=== PATIENT | female | born 1950 | race Caucasian/White ===

== ENCOUNTER 2016-08-23 12:50 | Outpatient (CLI) ==
--- NOTE | 2016-08-25 08:44 | MAMMO ---
EXAM: Bilateral digital screening mammogram. History: Screening Comparison: Bilateral mammogram 08/11/2014 Findings: MLO and CC views of bilateral breasts demonstrate scattered fibroglandular breast parench yma. Stable benign bilateral breast calcifications. There are no dominant masses, no suspicious stephon rocalcifications and no architectural distortions Impression: Benign stable mammogram. Recommend followup routine screening mammography in 1 year. BIRADS 2
== END 2016-08-23 12:51 | disposition home or self-care (01) ==
LOC: RAD 12:50
PROVIDERS: ATTEND Internal Medicine
DX: Z12.31 Encounter for screening mammogram for malignant neoplasm of breast (principal)

== ENCOUNTER 2016-11-23 17:48 | Emergency (ER) ==
[2016-11-23 17:54] VITALS: BP 121/84; TEMP 97.6; BMI 33.0
[2016-11-23] MEDS ORDERED: LIDOCAINE HCL 1% SDV SUBCUT STA (19:18)
[2016-11-23] MEDS ORDERED: DECADRON 4 MG/ML SDV IM STA (19:18)
[2016-11-23] MEDS ORDERED: ROCEPHIN IM STA (19:18)
--- NOTE | 2016-11-23 19:26 | ED.PDOC ---
General ED Provider: Dr. GOLDY BECERRA Chief Complaint: Bite Stated Complaint: patient states she woke this morning and had a dark area on anterior of neck. patient states that as the day has gone on neck as swollen. patient states it hurts and itches. states she thinks something bit her. Time Seen by Physician: 19:23 Mode of Arrival: Walk-In Information Source: Patient Primary Care Provider: RACHEL BARRON Nursing and Triage Documentation Reviewed and Agree: Yes Review of Systems - Review Of Systems Constitutional: Reports: No symptoms Eyes: Reports: No symptoms Ears, Nose, Mouth, Throat: Reports: No symptoms Respiratory: Reports: No symptoms Cardiac: Reports: No symptoms GI: Reports: No symptoms : Reports: No symptoms Musculoskeletal: Reports: No symptoms Skin: Reports: Lesions, Rash Neurological: Reports: Anxiety Endocrine: Reports: No symptoms Hematologic/Lymphatic: Reports: No symptoms All Other Systems: Reviewed and Negative Past Medical History - Past Medical History Previously Healthy: Yes Endocrine: Reports: None Cardiovascular: Reports: CAD Respiratory: Reports: None Hematological: Reports: None Gastrointestinal: Reports: None Genitourinary: Reports: None Neuro/Psych: Reports: None Musculoskeletal: Reports: None Cancer: Reports: None Last Menstrual Period: n./a Other Pertinent Past Medical History: fibromyalgia/connective tissue disease/ibs - Surgical History General Surgical History: Reports: None - Family History Family History: Reports: None - Social History Smoking Status: Never smoker Hx Substance Use: No Alcohol Screening: None Physical Exam - Physical Exam Appearance: Ill-appearing Ill-appearing: Mild Eyes: ALEJANDRO, EOMI, Conjunctiva clear ENT: Ears normal, Nose normal, Oropharynx normal Neck: Supple (soft tissue swelling anterioly) Respiratory: Airway patent, Breath sounds clear, Breath sounds equal, Respirations nonlabored Cardiovascular: Tachycardia GI/: Soft, Nontender, No masses, Bowel sounds normal, No Organomegaly Musculoskeletal: Normal strength, ROM intact, No edema, No calf tenderness Skin: Warm Neurological: Sensation intact, Motor intact, Reflexes intact, Cranial nerves intact, Alert, Oriented Psychiatric: Anxious Critical Care Note - Critical Care Note Total Time (mins): 0 Course - Course Orders, Labs, Meds: Orders Category Date Time Status Ceftriaxone Sodium [Rocephin] MEDS 11/23/16 19:18 Discontinued 1 gm IM ONCE STA Dexamethasone 4 mg/ml Inj [Decadron 4 mg/ml Sdv] MEDS 11/23/16 19:18 Discontinued 8 mg IM ONCE STA Epinephrine Amp [Epinephrine 1:1,000 Amp] MEDS 11/23/16 19:34 Discontinued 1 mg .ROUTE .STK-MED ONE Epinephrine [Adrenalin 1:1000 Sdv] MEDS 11/23/16 19:30 Discontinued 0.4 mg IM ONCE STA Lidocaine HCl/Pf [Lidocaine HCl 1% Sdv] MEDS 11/23/16 19:18 Discontinued 5 ml SUBCUT ONCE STA Medications Discontinued Medications Generic Name Dose Route Start Last Admin Trade Name Nadeem PRN Reason Stop Dose Admin Ceftriaxone Sodium 1 gm 11/23/16 19:18 11/23/16 19:30 Rocephin IM 11/23/16 19:19 1 gm ONCE STA Administration Dexamethasone Sodium Phosphate 8 mg 11/23/16 19:18 11/23/16 19:29 Decadron 4 Mg/Ml Sdv IM 11/23/16 19:19 8 mg ONCE STA Administration Epinephrine HCl 0.4 mg 11/23/16 19:30 11/23/16 19:41 Adrenalin 1:1000 Sdv IM 11/23/16 19:31 0.4 mg ONCE STA Administration Lidocaine HCl 5 ml 11/23/16 19:18 11/23/16 19:30 Lidocaine Hcl 1% Sdv SUBCUT 11/23/16 19:19 5 ml ONCE STA Administration Vital Signs: Temp Pulse Resp BP Pulse Ox 11/23/16 17:49 97.6 F 113 H 20 121/84 94 L Departure - Departure Time of Disposition: 20:20 Disposition: HOME SELF-CARE Discharge Problem: Spider bite Qualifiers: Encounter type: initial encounter Injury intent: accidental or unintentional Qualified Code(s): T63.301A - Toxic effect of unspecified spider venom, accidental (unintentional), initial encounter Instructions: Brown Recluse Spider Bite (ED) Condition: Fair Pt referred to PMD for follow-up: Yes Additional Instructions: Take medications as prescribed Follow up with PCP in 2 days Return if worse. Prescriptions: Cephalexin [Keflex] 500 mg PO Q6HR #40 capsule Methylprednisolone [Medrol Dosepak] 4 mg PO DIRECTED #1 pkg Allergies/Adverse Reactions: Allergies No Known Allergies Allergy (Unverified 11/23/16 17:54) Home Medications: Ambulatory Orders Acetaminophen [Tylenol] 650 mg PO DIRECTED 11/23/16 Amitriptyline HCl 10 mg PO BEDTIME 11/23/16 Aspirin [Aspirin Chewable] 81 mg PO DAILYWM 11/23/16 Atorvastatin Calcium 20 mg PO DAILY 11/23/16 Bupropion HCl [Bupropion HCl Sr] 150 mg PO BEDTIME 11/23/16 Calcium Carbonate [Calcium] 500 mg PO BID 11/23/16 Celecoxib 200 mg PO BEDTIME 11/23/16 Cephalexin [Keflex] 500 mg PO Q6HR #40 capsule 11/23/16 Cholecalciferol (Vitamin D3) [Vitamin D] 400 unit PO DAILY 11/23/16 Docusate Sodium [Stool Softener] 100 mg PO DIRECTED 11/23/16 Duloxetine HCl 60 mg PO DAILY 11/23/16 Esomeprazole Magnesium [Nexium] 40 mg PO DAILY 11/23/16 Hydroxychloroquine Sulfate [Plaquenil] 200 mg PO BID 11/23/16 Levothyroxine Sodium [Synthroid] 100 mcg PO QDAC 11/23/16 Methylprednisolone [Medrol Dosepak] 4 mg PO DIRECTED #1 pkg 11/23/16 Nitroglycerin [Nitrostat] 0.4 mg SL Q5MIN X 3 DOSES PRN 11/23/16 [place]-3 Fatty Acids/Fish Oil [Fish Oil 1,000 mg Capsule] 1 each PO BID 11/23/16 Tramadol HCl 50 mg PO QID 11/23/16
[2016-11-23] MEDS ORDERED: ADRENALIN 1:1000 SDV IM STA (19:30)
[2016-11-23] MEDS ORDERED: EPINEPHRINE 1:1,000 AMP ONE (19:34)
[2016-11-24 18:48] VITALS: BMI 32.0
== END 2016-11-23 20:00 | disposition home or self-care (01) ==
LOC: ED 17:48
DX: T63.301A Toxic effect of unspecified spider venom, accidental (unintentional), initial encounter (principal)
CPT/HCPCS: 96372; 99282

== ENCOUNTER 2016-11-24 12:53 | Inpatient (IN) ==
--- NOTE | 2016-11-24 13:49 | CT ---
EXAM: CT soft tissue neck without contrast. HISTORY: Neck swelling near the thyroid cartilage. Possible insect bite or abscess. COMPARISON: None available. TECHNIQUE: Multiple axial images of the neck were obtained without contrast. Images were reformatte d in the sagittal and coronal plane. FINDINGS: No acute intracranial or intraorbital abnormality identified. There is a moderate-sized a ir-fluid level in the right maxillary sinus. The parotid and submandibular glands are unremarkable. There is diffuse subcutaneous edema in the chery bmandibular and submental regions extending inferiorly to the level of the thoracic inlet with some e yazmin surrounding the anterior strap muscles at the thoracic inlet. No subcutaneous air or circumscri bed fluid collection identified. No pharyngeal abnormality identified. Subglottic airway is normal in caliber. Thyroid gland is normal in size. Atherosclerotic calcifications are present. Retropharyngeal course of both carotid arteries noted at the level of the epiglottis. 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 The lung api dominique are clear. Degenerative changes present in the spine. IMPRESSION: 1. Moderate anterior neck cellulitis extending from the submandibular/submental region to the thorac ic inlet. No evidence for abscess. 2. Right maxillary sinusitis.
[2016-11-24] MEDS ORDERED: VANCOMYCIN 1 GM in SODIUM CHLORIDE 250 ML IV STA ×2 (14:15→14:17)
[2016-11-24] MEDS ORDERED: ROCEPHIN 2 GM in SODIUM CHLORIDE 100 ML IV STA (14:15)
--- NOTE | 2016-11-24 14:20 | ED.PDOC ---
General ED Provider: Dr. BRENNA ELKINS Chief Complaint: Abscess Stated Complaint: abscess neck Time Seen by Physician: 13:00 (seen last night for same issue returns stating problem is worse ) Mode of Arrival: Walk-In Information Source: Patient Exam Limitations: No limitations Primary Care Provider: RACHEL BARRON Referred to ED by: Other (see photos) Nursing and Triage Documentation Reviewed and Agree: Yes (no air way issues on arrival) Skin Complaint Exam - Skin/Soft Tissue Complaint/Exam Symptoms Are: Still present Timing: Constant Initial Severity: Moderate Current Severity: Moderate Character: Reports: Redness, Swelling Aggravating: Reports: None Alleviating: Reports: None Associated Signs and Symptoms: Denies: Fever, Chills, Itching, Drainage, Bruising, Tenderness, Red streaks, Joint swelling Related History: Reports: Similar episode Related Surgical History: Reports: None Recent Exposure to Others w/Similar Symptoms: No Skin Findings: Present: Pustules Differential Diagnoses: Abscess Review of Systems - Review Of Systems Constitutional: Reports: No symptoms Eyes: Reports: No symptoms Ears, Nose, Mouth, Throat: Reports: No symptoms Respiratory: Reports: No symptoms Cardiac: Reports: No symptoms GI: Reports: No symptoms : Reports: No symptoms Musculoskeletal: Reports: No symptoms Skin: Reports: Other (abscess see photos) Neurological: Reports: No symptoms Endocrine: Reports: No symptoms Hematologic/Lymphatic: Reports: No symptoms All Other Systems: Reviewed and Negative Past Medical History - Past Medical History Previously Healthy: Yes Endocrine: Reports: None Cardiovascular: Reports: CAD Respiratory: Reports: None Hematological: Reports: None Gastrointestinal: Reports: None Genitourinary: Reports: None Neuro/Psych: Reports: None Musculoskeletal: Reports: None Cancer: Reports: None Last Menstrual Period: NA Other Pertinent Past Medical History: fibromyalgia/connective tissue disease/ibs - Surgical History General Surgical History: Reports: None - Family History Family History: Reports: None - Social History Smoking Status: Never smoker Hx Substance Use: No Alcohol Screening: None Physical Exam - Physical Exam Appearance: Well-appearing, No pain distress, Well-nourished Eyes: ALEJANDRO, EOMI, Conjunctiva clear ENT: Ears normal, Nose normal, Oropharynx normal Respiratory: Airway patent, Breath sounds clear, Breath sounds equal, Respirations nonlabored Cardiovascular: RRR, Pulses normal, No rub, No murmur GI/: Soft, Nontender, No masses, Bowel sounds normal, No Organomegaly Musculoskeletal: Normal strength, ROM intact, No edema, No calf tenderness Skin: Warm, Dry (abscess soft tissue neck edema with preserved airway function ) Neurological: Sensation intact, Motor intact, Reflexes intact, Cranial nerves intact, Alert, Oriented Psychiatric: Affect appropriate, Mood appropriate Interpretation - Radiology Interpretation Radiology Interpretation By: Radiologist Radiology Results: Positive (cellulitis neck) Physician Notification - Case Discussed Physician Notified: pmd Time of Notification: 14:21 (admitt) Critical Care Note - Critical Care Note Total Time (mins): 0 Course - Course Orders, Labs, Meds: Orders Category Date Time Status EKG-(ED ONLY) Stat CARDIO 11/24/16 14:13 Ordered ED IV/MEDIPORT/POWERPORT .ONCE EMERGENCY 11/24/16 14:13 Ordered BLOOD CULTURE (ED ONLY) Stat LAB 11/24/16 Ordered BLOOD CULTURE Stat LAB 11/24/16 14:13 Stop Req CBC W/ AUTO DIFF Stat LAB 11/24/16 14:12 Ordered COMPREHENSIVE METABOLIC PANEL Stat LAB 11/24/16 14:12 Ordered LACTIC ACID Stat LAB 11/24/16 14:14 Ordered PROCALCITONIN Stat LAB 11/24/16 Ordered 0.9 % Sodium Chloride [Saline Flush] MEDS 11/24/16 14:13 Ordered 1 syr IVF PRN PRN Ceftriaxone Sodium [Rocephin] 2 gm MEDS 11/24/16 14:15 Ordered 0.9 % Sodium Chloride [Sodium Chloride] 100 ml IV ONCE Vancomycin HCl [Vancomycin] 1 gm MEDS 11/24/16 14:17 Ordered 0.9 % Sodium Chloride [Sodium Chloride] 250 ml IV ONCE Vancomycin HCl [Vancomycin] 1 gm MEDS 11/24/16 21:00 Ordered 0.9 % Sodium Chloride [Sodium Chloride] [address] CHEST W/O CONTRAST Stat RADS 11/24/16 14:[address] SOFT TISSUE NECK W/O CONTR Stat RADS 11/24/16 13:14 Completed Medications Generic Name Dose Route Start Last Admin Trade Name Freq PRN Reason Stop Dose Admin Ceftriaxone Sodium 2 gm/ 100 mls @ 100 mls/hr 11/24/16 14:15 Sodium Chloride IV 11/24/16 15:14 ONCE STA Vancomycin HCl 1 gm/ Sodium 250 mls @ 250 mls/hr 11/24/16 21:00 Chloride IV Q12HR CARISSA Vancomycin HCl 1 gm/ Sodium 250 mls @ 250 mls/hr 11/24/16 14:17 Chloride IV 11/24/16 15:16 ONCE STA Sodium Chloride 1 syr 11/24/16 14:13 Saline Flush IVF PRN PRN To flush IV Vital Signs: Temp Pulse Resp BP Pulse Ox 11/24/16 12:57 98.5 F 92 H 16 152/87 H 94 L Departure - Departure Time of Disposition: 14:21 (admitted , photos attached ) Disposition: ADMITTED INPATIENT Discharge Problem: Cellulitis, neck Instructions: Cellulitis (ED) Condition: Good Pt referred to PMD for follow-up: Yes Additional Instructions: Please call your Family Physician as soon as possible to schedule a follow-up appointment. Allergies/Adverse Reactions: Allergies No Known Allergies Allergy (Unverified 11/23/16 17:54) Home Medications: Ambulatory Orders Acetaminophen [Tylenol] 650 mg PO DIRECTED 11/23/16 Amitriptyline HCl 10 mg PO BEDTIME 11/23/16 Aspirin [Aspirin Chewable] 81 mg PO DAILYWM 11/23/16 Atorvastatin Calcium 20 mg PO DAILY 11/23/16 Bupropion HCl [Bupropion HCl Sr] 150 mg PO BEDTIME 11/23/16 Calcium Carbonate [Calcium] 500 mg PO BID 11/23/16 Celecoxib 200 mg PO BEDTIME 11/23/16 Cephalexin [Keflex] 500 mg PO Q6HR #40 capsule 11/23/16 Cholecalciferol (Vitamin D3) [Vitamin D] 400 unit PO DAILY 11/23/16 Docusate Sodium [Stool Softener] 100 mg PO DIRECTED 11/23/16 Duloxetine HCl 60 mg PO DAILY 11/23/16 Esomeprazole Magnesium [Nexium] 40 mg PO DAILY 11/23/16 Hydroxychloroquine Sulfate [Plaquenil] 200 mg PO BID 11/23/16 Levothyroxine Sodium [Synthroid] 100 mcg PO QDAC 11/23/16 Methylprednisolone [Medrol Dosepak] 4 mg PO DIRECTED #1 pkg 11/23/16 Nitroglycerin [Nitrostat] 0.4 mg SL Q5MIN X 3 DOSES PRN 11/23/16 [place]-3 Fatty Acids/Fish Oil [Fish Oil 1,000 mg Capsule] 1 each PO BID 10/05/17 Tramadol HCl 50 mg PO QID 11/23/16 Disposition Discussed With: Patient, Family
[2016-11-24 14:28] LABS: BASOPHILS % (AUTO) 0.3 % (0.0-3.0); EOSINOPHILS % (AUTO) 0.1 % (0.0-7.0); HEMATOCRIT 37.1 % (37.0-47.0); HEMOGLOBIN 12.8 g/dl (12.0-16.0); IMMATURE GRANULOCYTE % (AUTO) 0.4 % (0.0-5.0); LYMPHOCYTES # (AUTO) 1.9 K/uL (0.60-3.4); LYMPHOCYTES % (AUTO) 25.2 (10.0-50.0); MEAN CORPUSCULAR HEMOGLOBIN 30.1 pg (27.0-31.0); MEAN CORPUSCULAR HGB CONC 34.5 (31.8-35.4); MEAN CORPUSCULAR VOLUME 87.3 fl (81.0-99.0); MONOCYTES # (AUTO) 0.7 K/uL (0.4-2.0); MONOCYTES % (AUTO) 8.9 (0-10); NEUTROPHILS # (AUTO) 4.9 K/ul (2.0-6.9); NEUTROPHILS % (AUTO) 65.1; PLATELET COUNT 226 10^3/uL (140-440); RED BLOOD COUNT 4.25 10^6/ul (4.20-5.40); WHITE BLOOD COUNT 7.54 K/ul (4.6-10.2)
[2016-11-24] MEDS ORDERED: NITROSTAT SL PRN (14:29)
--- NOTE | 2016-11-24 14:51 | CT ---
EXAM: CT of the chest without contrast History: Neck cellulitis. Comparison: CT soft tissue neck 11/24/2016, chest radiograph 06/16/2013 Technique: Multiplanar CT images through the thorax were obtained without the administration of IV c ontrast Findings: Subcutaneous edema of the lower neck extending to involve the upper mid chest. No abscess . Heart size is normal. No pericardial effusion. No pathologically enlarged thoracic lymph nodes. Great vessels are grossly unremarkable on this noncontrast study. Normal variant aberrant right sub clavian artery. No consolidated pneumonia. No pleural fluid and no pneumothorax. Scattered areas o f subsegmental atelectasis. No suspicious lung masses or lung nodules. Within the visualized upper abdomen, calcified granulomas within the liver and spleen. There is some atrophy of the pancreas. 2 mm right renal calculus. No acute osseous abnormalities. Impression: 1. No acute intrathoracic process. 2. Cellulitis of the lower neck extending to involve the upper mid chest. No abscess.
[2016-11-24 14:55] LABS: ALBUMIN 3.7 g/dL (3.4-5.0); ALBUMIN/GLOBULIN RATIO 0.8; ANION GAP 14.7; BILIRUBIN,TOTAL 1.27 mg/dL (0.00-1.20); BUN/CREATININE RATIO 19.54; CALCIUM 10.1 mg/dL (8.2-10.2); CREATININE 0.87 mg/dL (0.60-1.30); POTASSIUM 3.7 mmol/L (3.5-5.10); TOTAL PROTEIN 8.3 g/dL (5.8-8.1)
[2016-11-24] MEDS ORDERED: ROCEPHIN ONE (15:45)
[2016-11-24 18:48] VITALS: BMI 32.0
[2016-11-24] MEDS: TYLENOL PO SCH (20:52)
[2016-11-24] MEDS ORDERED: VANCOMYCIN 1 GM in SODIUM CHLORIDE 250 ML IV SCH (21:00)
[2016-11-24] MEDS ORDERED: NON-FORMULARY MEDICATION (Calcium Carbonate [Calcium] 500 MG) PO SCH (22:45)
[2016-11-24] MEDS ORDERED: NON-FORMULARY MEDICATION (Docusate Sodium [Stool Softener] 100 MG) PO SCH ×22 (22:45)
[2016-11-24] MEDS ORDERED: NON-FORMULARY MEDICATION (Omega-3 Fatty Acids/Fish Oil [Fish Oil 1,000 Mg Capsule] 1 EACH) PO SCH ×22 (22:45)
[2016-11-24] MEDS ORDERED: NON-FORMULARY MEDICATION (Hydroxychloroquine Sulfate 200 MG) PO SCH (22:45)
[2016-11-24] MEDS ORDERED: NON-FORMULARY MEDICATION (Bupropion Hcl [Bupropion Hcl Sr] 150 MG) PO SCH (22:45)
[2016-11-24] MEDS ORDERED: NON-FORMULARY MEDICATION (Duloxetine Hcl [Duloxetine Hcl] 60 MG) PO SCH (22:45)
[2016-11-24] MEDS ORDERED: OMEGA-3 FISH OIL ONE (23:24)
[2016-11-24] MEDS ORDERED: COLACE ONE (23:24)
[2016-11-24] MEDS ORDERED: CYMBALTA ONE (23:24)
[2016-11-24] MEDS ORDERED: WELLBUTRIN SR ONE (23:24)
[2016-11-24] MEDS: ULTRAM PO SCH (23:27)
[2016-11-24] MEDS: VITAMIN D PO SCH (23:27)
[2016-11-24] MEDS: ELAVIL PO SCH (23:27)
[2016-11-25] MEDS: CELECOXIB 200 MG PO SCH ×2 (00:29→05:58)
[2016-11-25] MEDS: NON-FORMULARY MEDICATION (Esomeprazole Magnesium [Nexium] 40 MG) PO SCH ×44 (00:29→05:58)
[2016-11-25 04:59] LABS: BASOPHILS % (AUTO) 0.4 % (0.0-3.0); EOSINOPHILS # (AUTO) 0.3 K/ul (0.0-0.7); EOSINOPHILS % (AUTO) 2.7 % (0.0-7.0); HEMATOCRIT 37.9 % (37.0-47.0); HEMOGLOBIN 12.9 g/dl (12.0-16.0); IMMATURE GRANULOCYTE % (AUTO) 0.5 % (0.0-5.0); LYMPHOCYTES # (AUTO) 3.5 K/uL (0.60-3.4); LYMPHOCYTES % (AUTO) 37.9 (10.0-50.0); MEAN CORPUSCULAR HEMOGLOBIN 29.9 pg (27.0-31.0); MEAN CORPUSCULAR VOLUME 87.9 fl (81.0-99.0); MONOCYTES # (AUTO) 0.9 K/uL (0.4-2.0); MONOCYTES % (AUTO) 9.7 (0-10); NEUTROPHILS # (AUTO) 4.5 K/ul (2.0-6.9); NEUTROPHILS % (AUTO) 48.8; PLATELET COUNT 214 10^3/uL (140-440); RED BLOOD COUNT 4.31 10^6/ul (4.20-5.40); WHITE BLOOD COUNT 9.15 K/ul (4.6-10.2)
[2016-11-25 05:23] LABS: ALBUMIN 3.6 g/dL (3.4-5.0); ALBUMIN/GLOBULIN RATIO 0.88; BILIRUBIN,TOTAL 1.29 mg/dL (0.00-1.20); BUN/CREATININE RATIO 20.51; CREATININE 0.78 mg/dL (0.60-1.30); TOTAL PROTEIN 7.7 g/dL (5.8-8.1)
[2016-11-25] MEDS: SYNTHROID PO SCH (05:57)
[2016-11-25] MEDS: CALCIUM 500 + VIT D 200 MG TABLET PO SCH ×3 (08:52→21:06)
[2016-11-25] MEDS: ASPIRIN CHEWABLE PO SCH (08:52)
[2016-11-25] MEDS: CELEBREX PO SCH (08:52)
[2016-11-25] MEDS: OMEGA-3 FISH OIL PO SCH ×2 (08:53→16:04)
[2016-11-25] MEDS: LIPITOR PO SCH (08:53)
[2016-11-25] MEDS: PROTONIX PO SCH (08:53)
[2016-11-25] MEDS: PLAQUENIL PO SCH ×2 (08:53→17:38)
[2016-11-25] MEDS: COLACE PO SCH ×3 (08:53→21:05)
[2016-11-25] MEDS: TYLENOL PO SCH ×3 (08:54→21:04)
[2016-11-25] MEDS: VANCOMYCIN 500 MG in SODIUM CHLORIDE 100 ML IV SCH ×2 (08:54→21:04)
[2016-11-25] MEDS: VITAMIN D PO SCH (08:54)
[2016-11-25] MEDS: ULTRAM PO SCH ×4 (08:54→21:04)
[2016-11-25] MEDS ORDERED: DECADRON 4 MG/ML SDV IVP STA (11:21)
[2016-11-25] MEDS: K-DUR PO SCH ×2 (11:44→17:39)
[2016-11-25] MEDS: ELAVIL PO SCH (21:04)
[2016-11-25] MEDS: CYMBALTA PO SCH (21:05)
[2016-11-25] MEDS: WELLBUTRIN SR PO SCH (21:06)
[2016-11-26 04:56] LABS: BASOPHILS # (AUTO) 0.1 K/uL (0-0.2); BASOPHILS % (AUTO) 0.5 % (0.0-3.0); EOSINOPHILS # (AUTO) 0.1 K/ul (0.0-0.7); EOSINOPHILS % (AUTO) 0.6 % (0.0-7.0); HEMATOCRIT 35.7 % (37.0-47.0); HEMOGLOBIN 12.2 g/dl (12.0-16.0); IMMATURE GRANULOCYTE % (AUTO) 0.4 % (0.0-5.0); LYMPHOCYTES # (AUTO) 3.2 K/uL (0.60-3.4); LYMPHOCYTES % (AUTO) 32.4 (10.0-50.0); MEAN CORPUSCULAR HGB CONC 34.2 (31.8-35.4); MEAN CORPUSCULAR VOLUME 87.9 fl (81.0-99.0); MONOCYTES # (AUTO) 0.9 K/uL (0.4-2.0); MONOCYTES % (AUTO) 8.6 (0-10); NEUTROPHILS # (AUTO) 5.7 K/ul (2.0-6.9); NEUTROPHILS % (AUTO) 57.5; PLATELET COUNT 220 10^3/uL (140-440); RED BLOOD COUNT 4.06 10^6/ul (4.20-5.40); WHITE BLOOD COUNT 9.86 K/ul (4.6-10.2)
[2016-11-26 05:16] LABS: ALBUMIN 3.5 g/dL (3.4-5.0); ALBUMIN/GLOBULIN RATIO 0.88; ANION GAP 12.9; BILIRUBIN,TOTAL 1.1 mg/dL (0.00-1.20); BUN/CREATININE RATIO 26.66; CALCIUM 10.6 mg/dL (8.2-10.2); CREATININE 0.75 mg/dL (0.60-1.30); POTASSIUM 3.9 mmol/L (3.5-5.10); TOTAL PROTEIN 7.5 g/dL (5.8-8.1)
[2016-11-26] MEDS: SYNTHROID PO SCH (05:50)
[2016-11-26] MEDS: PROTONIX PO SCH (05:50)
[2016-11-26] MEDS: OMEGA-3 FISH OIL PO SCH ×4 (05:52→20:16)
[2016-11-26] MEDS: CELEBREX PO SCH (08:18)
[2016-11-26] MEDS: VANCOMYCIN 500 MG in SODIUM CHLORIDE 100 ML IV SCH ×2 (08:18→20:16)
[2016-11-26] MEDS: TYLENOL PO SCH ×3 (08:19→20:17)
[2016-11-26] MEDS: ASPIRIN CHEWABLE PO SCH (08:19)
[2016-11-26] MEDS: K-DUR PO SCH ×3 (08:19→17:19)
[2016-11-26] MEDS: VITAMIN D PO SCH (08:19)
[2016-11-26] MEDS: ULTRAM PO SCH ×4 (08:19→20:17)
[2016-11-26] MEDS: LIPITOR PO SCH (08:19)
[2016-11-26] MEDS: PLAQUENIL PO SCH ×2 (08:19→17:19)
[2016-11-26] MEDS: CALCIUM 500 + VIT D 200 MG TABLET PO SCH ×3 (08:19→20:17)
[2016-11-26] MEDS: COLACE PO SCH ×3 (08:19→20:17)
[2016-11-26] MEDS ORDERED: DECADRON 4 MG/ML SDV IVP ONE (12:00)
[2016-11-26] MEDS: WELLBUTRIN SR PO SCH (20:16)
[2016-11-26] MEDS: ELAVIL PO SCH (20:17)
[2016-11-26] MEDS: CYMBALTA PO SCH (20:17)
[2016-11-26] MEDS: DOXYCYCLINE HYCLATE PO SCH (22:23)
[2016-11-27 05:09] LABS: BASOPHILS % (AUTO) 0.3 % (0.0-3.0); EOSINOPHILS % (AUTO) 0.1 % (0.0-7.0); HEMATOCRIT 37.1 % (37.0-47.0); HEMOGLOBIN 12.4 g/dl (12.0-16.0); IMMATURE GRANULOCYTE % (AUTO) 0.7 % (0.0-5.0); LYMPHOCYTES # (AUTO) 2.7 K/uL (0.60-3.4); LYMPHOCYTES % (AUTO) 30.5 (10.0-50.0); MEAN CORPUSCULAR HGB CONC 33.4 (31.8-35.4); MEAN CORPUSCULAR VOLUME 89.6 fl (81.0-99.0); MONOCYTES # (AUTO) 0.6 K/uL (0.4-2.0); MONOCYTES % (AUTO) 6.5 (0-10); NEUTROPHILS # (AUTO) 5.4 K/ul (2.0-6.9); NEUTROPHILS % (AUTO) 61.9; PLATELET COUNT 223 10^3/uL (140-440); RED BLOOD COUNT 4.14 10^6/ul (4.20-5.40); WHITE BLOOD COUNT 8.72 K/ul (4.6-10.2)
[2016-11-27 05:36] LABS: ALBUMIN 3.4 g/dL (3.4-5.0); ALBUMIN/GLOBULIN RATIO 0.81; ANION GAP 14.9; BILIRUBIN,TOTAL 0.84 mg/dL (0.00-1.20); BUN/CREATININE RATIO 24.7; CALCIUM 10.7 mg/dL (8.2-10.2); CREATININE 0.85 mg/dL (0.60-1.30); POTASSIUM 4.9 mmol/L (3.5-5.10); TOTAL PROTEIN 7.6 g/dL (5.8-8.1)
[2016-11-27] MEDS: PROTONIX PO SCH (05:55)
[2016-11-27] MEDS: SYNTHROID PO SCH (05:55)
[2016-11-27] MEDS: VANCOMYCIN 500 MG in SODIUM CHLORIDE 100 ML IV SCH ×2 (08:53→21:10)
[2016-11-27] MEDS: ASPIRIN CHEWABLE PO SCH (08:53)
[2016-11-27] MEDS ORDERED: DECADRON 4 MG/ML SDV IM STA (08:53)
[2016-11-27] MEDS: K-DUR PO SCH ×3 (08:54→17:46)
[2016-11-27] MEDS: CALCIUM 500 + VIT D 200 MG TABLET PO SCH ×3 (08:54→21:12)
[2016-11-27] MEDS: DOXYCYCLINE HYCLATE PO SCH ×2 (08:54→21:12)
[2016-11-27] MEDS: COLACE PO SCH ×3 (08:54→21:13)
[2016-11-27] MEDS: VITAMIN D PO SCH (08:54)
[2016-11-27] MEDS: LIPITOR PO SCH (08:54)
[2016-11-27] MEDS: CELEBREX PO SCH (08:54)
[2016-11-27] MEDS: PLAQUENIL PO SCH ×2 (08:54→17:46)
[2016-11-27] MEDS: OMEGA-3 FISH OIL PO SCH ×3 (08:54→21:12)
[2016-11-27] MEDS: TYLENOL PO SCH ×3 (08:54→21:13)
[2016-11-27] MEDS: ULTRAM PO SCH ×4 (08:54→21:12)
--- NOTE | 2016-11-27 08:58 | CT ---
Exam: CT of the neck soft tissues without intravenous contrast. Comparison: 11/24/2016. Reason for exam: Insect bite with neck swelling. FINDINGS: No displaced facial fractures. The frontal, ethmoid, maxillary, and sphenoid sinuses are unopacified. There is a small effusion in the right mastoid air cell. The aerodigestive tract appears grossly unr emarkable. Inflammatory changes are seen in the anterior neck soft tissues without a discrete fluid collection. Image interpretation is limited by the lack of intravenous contrast. Degenerative changes are seen in the cervical spine with intervertebral body disc space height loss m ost notably at C5-6 and C6-7. The previously described right maxillary sinus disease has resolved. Impression: 1. Cellulitis of the anterior neck soft tissues without discrete fluid collection or abscess formati on. Imaging findings appear similar to the previous examination. 2. Degenerative disease in the cervical spine. 3. Right mastoid air cell effusion.
--- NOTE | 2016-11-27 11:39 | PCM.PROG ---
Attending Provider: ATTENDING PROVIDER: Dr. RACHEL BARRON This patient is seen with Katy Shankar, Nurse Practitioner. DATE OF SERVICE: 11/27/16 SUBJECTIVE: This 66 year old WHITE/ F was hospitalized 11/24/16. The patient states swelling of neck is improved. She will have CT of soft tissue repeated today. REVIEW OF SYSTEMS: CONSTITUTIONAL: No night sweats. No fatigue, malaise, lethargy. No fever or chills. HEENT: Eyes: No visual changes. No eye pain. No eye discharge. ENT: No runny nose. No epistaxis. No sinus pain. No odynophagia. No congestion. RESPIRATORY: No cough, no congestion. No hemoptysis. No shortness of breath. CARDIOVASCULAR: No angina symptoms. No CHF symptoms. No atypical chest pain for CAD. No palpitations. No orthopnea.. GASTROINTESTINAL: No abdominal pain. No nausea or vomiting. No diarrhea or constipation. No hematemesis. No hematochezia. GENITOURINARY: No urgency. No frequency. No dysuria. No hematuria. No obstructive symptoms. No discharge. No pain. No significant abnormal bleeding. MUSCULOSKELETAL: No musculoskeletal pain; no joint swelling. NEUROLOGICAL: Awake, alert, oriented to time, place and person. No headache. No neck pain. No syncope. No seizures. No dizziness. PSYCHIATRIC: Not anxious. No depression. No suicidal thoughts. No homicidal thoughts. SKIN: Lesion midline of neck. ENDOCRINE: No unexplained weight loss. No weight gain. HEMATOLOGIC/LYMPHATIC: No anemia. No purpura. No petechiae. No prolonged or excessive bleeding. No palpable lymph nodes. PHYSICAL EXAMINATION: GENERAL: The patient is awake, alert and oriented, lying/sitting in bed in no distress. VITAL SIGNS: Temperature 98.1 F, Pulse 72, Respiratory Rate 16, BP 90/53, Pulse Ox 94% HEENT: Head normocephalic, atraumatic. Eyes: Extraocular muscles are intact. Pupils are equal, round and reactive to light and accommodation. Ears: No lesions. Nose appeared normal. Throat: No exudate or erythema. NECK: Supple. No JVD, no carotid bruit. No lymphadenopathy or thyromegaly. LUNGS: Diminished breath sounds equal and clear to auscultation. Percussion note normal. Chest symmetrical. HEART: S1, S2, no S3. No murmurs. No cyanosis or clubbing. No ascites. Pulses: Dorsalis pedis and posterior tibial pulses +1 to +2 both sides. ABDOMEN: Soft. Non-tender. Bowel sounds active. No CVA tenderness. No mass felt. EXTREMITIES: No edema. Full range of motion of all extremities, equal. NEUROLOGIC: No focal deficit. Cranial nerves II through XII are grossly intact. No headache, no double vision or headache. SKIN: Pinpoint darkened area in middle of neck 2" swelling midline of neck slight redness with mild tenderness, no drainage. LYMPHATIC: No palpable lymph nodes/no lymphedema. MUSCULOSKELETAL: Normal joints with no swelling. Muscle tone is normal. LAB REVIEW: 11/27/16 04:30 11/27/16 04:30 11/27/16 04:30: Sodium 139, Potassium 4.9, Chloride 102, Carbon Dioxide 27, Anion Gap 14.9, BUN 21 H, Creatinine 0.85, Estimated GFR (MDRD) 67.00, BUN/ Creatinine Ratio 24.70, Glucose 126 H, Calcium 10.7 H, Total Bilirubin 0.84, AST 18, ALT 14, Alkaline Phosphatase 64, Total Protein 7.6, Albumin 3.4, Globulin 4.2, Albumin/Globulin Ratio 0.81 11/27/16 04:30: WBC 8.72, RBC 4.14 L, Hgb 12.4, Hct 37.1, MCV 89.6, MCH 30.0, MCHC 33.4, RDW Coeff of Jaclyn 14.0, Plt Count 223, Immature Gran % (Auto) 0.7, Neut % (Auto) 61.9, Lymph % (Auto) 30.5, Patrick % (Auto) 6.5, Eos % (Auto) 0.1, Baso % (Auto) 0.3, Immature Gran # (Auto) 0.1, Neut # 5.4, Lymph # 2.7, Patrick # 0.6, Eos # 0.0, Baso # 0.0 ASSESSMENT: 1. Cellulitis of neck. 2. Questionable insect bite vs abscess. PLAN: 1. CT soft tissue neck today. 2. 1 cc Decadron. Plan and coordination of the patient's care discussed in the presence of Social Services Designee and nurse. CONDITION: Stable SCRIBED BY: SRAVANI JOHNSON Disease Case Manager scribed while in presence of service performed by Dr. Barron/Katy Shankar APRN on 11/27/16 ([id number])
[2016-11-27] MEDS: CYMBALTA PO SCH (21:12)
[2016-11-27] MEDS: WELLBUTRIN SR PO SCH (21:12)
[2016-11-27] MEDS: ELAVIL PO SCH (21:13)
[2016-11-28 05:09] LABS: BASOPHILS # (AUTO) 0.1 K/uL (0-0.2); BASOPHILS % (AUTO) 0.7 % (0.0-3.0); EOSINOPHILS # (AUTO) 0.2 K/ul (0.0-0.7); EOSINOPHILS % (AUTO) 1.5 % (0.0-7.0); HEMOGLOBIN 12.1 g/dl (12.0-16.0); LYMPHOCYTES # (AUTO) 5.7 K/uL (0.60-3.4); LYMPHOCYTES % (AUTO) 48.3 (10.0-50.0); MEAN CORPUSCULAR HEMOGLOBIN 30.7 pg (27.0-31.0); MEAN CORPUSCULAR HGB CONC 33.6 (31.8-35.4); MEAN CORPUSCULAR VOLUME 91.4 fl (81.0-99.0); MONOCYTES # (AUTO) 0.7 K/uL (0.4-2.0); MONOCYTES % (AUTO) 6.2 (0-10); NEUTROPHILS % (AUTO) 42.3; PLATELET COUNT 223 10^3/uL (140-440); RED BLOOD COUNT 3.94 10^6/ul (4.20-5.40); WHITE BLOOD COUNT 11.82 K/ul (4.6-10.2)
[2016-11-28 05:39] LABS: ALBUMIN 3.3 g/dL (3.4-5.0); ALBUMIN/GLOBULIN RATIO 0.85; ANION GAP 13.6; BILIRUBIN,TOTAL 0.62 mg/dL (0.00-1.20); BUN/CREATININE RATIO 31.86; CALCIUM 10.1 mg/dL (8.2-10.2); CREATININE 0.91 mg/dL (0.60-1.30); POTASSIUM 4.6 mmol/L (3.5-5.10); TOTAL PROTEIN 7.2 g/dL (5.8-8.1)
[2016-11-28] MEDS: SYNTHROID PO SCH (05:44)
[2016-11-28] MEDS: PROTONIX PO SCH (05:44)
--- NOTE | 2016-11-28 08:14 | PN ---
DATE OF SERVICE: 11/25/16 SUBJECTIVE: 66 year old white female hospitalized with cellulitis of the neck. The patient' s swelling is somewhat less according to the patient, less tight and no problems swallowing. She is up and about with normal voice. PHYSICAL EXAMINATION: VITAL SIGNS: Temperature 97.9, pulse 89, respiratory rate 16, blood pressure 117/71 and pulse ox 94%. HEENT: Head normocephalic, atraumatic. Eyes: Extraocular muscles are intact. Pupils are equal, round and reactive to light and accommodation. Ears: No lesions. Nose appeared normal. Throat: No exudate or erythema. No redness. No cellulitis. No tenderness. No swelling of the tongue. NECK: Swelling in the anterior neck. No JVD, no carotid bruit. No lymphadenopathy or thyromegaly. LUNGS: Clear to auscultation. Percussion note normal. Chest symmetrical. HEART: S1, S2, no S3. No murmurs. No cyanosis or clubbing. No ascites. Pulses: Dorsalis pedis and posterior tibial pulses +1 to +2 both sides. ABDOMEN: Soft. Nontender. Bowel sounds active. No CVA tenderness. No mass felt. EXTREMITIES: No edema. Full range of motion of all extremities, equal. NEUROLOGIC: No focal deficit. Cranial nerves II through XII are grossly intact. No headache, no double vision or headache. SKIN: Not dry. Intact. Turgor - normal. LYMPHATIC: No palpable lymph nodes/no lymphedema. MUSCULOSKELETAL: Normal joints with no swelling. Muscle tone is normal. LABS: Hgb 12.9, hct 37, WBC 9,100 normal differential, creatinine 0.7, BUN 16, potassium 3. ASSESSMENT: 1. Cellulitis from likely insect bite with no evidence of necrosis PLAN: 1. Continue double antibiotics 2. Potassium supplement for hypokalemia 3. For itching will give 2 cc Decadron and 1cc Decadron tomorrow. TIME SPENT: More than 30 minutes. Plan and coordination of the patient's care discussed in the presence of nurse. JULIANN
[2016-11-28] MEDS: DOXYCYCLINE HYCLATE PO SCH ×2 (08:23→20:42)
[2016-11-28] MEDS: VANCOMYCIN 500 MG in SODIUM CHLORIDE 100 ML IV SCH ×2 (08:23→20:43)
[2016-11-28] MEDS: K-DUR PO SCH ×3 (08:23→18:09)
[2016-11-28] MEDS: VITAMIN D PO SCH (08:23)
[2016-11-28] MEDS: CELEBREX PO SCH (08:23)
[2016-11-28] MEDS: ASPIRIN CHEWABLE PO SCH (08:23)
[2016-11-28] MEDS: ULTRAM PO SCH ×4 (08:23→20:42)
[2016-11-28] MEDS: LIPITOR PO SCH (08:24)
[2016-11-28] MEDS: CALCIUM 500 + VIT D 200 MG TABLET PO SCH ×3 (08:24→20:42)
[2016-11-28] MEDS: TYLENOL PO SCH ×3 (08:24→20:42)
[2016-11-28] MEDS: PLAQUENIL PO SCH ×2 (08:24→18:09)
[2016-11-28] MEDS: OMEGA-3 FISH OIL PO SCH ×3 (08:24→20:42)
[2016-11-28] MEDS: COLACE PO SCH ×3 (08:24→20:42)
--- NOTE | 2016-11-28 08:41 | PN ---
DATE OF SERVICE: 11/26/16 SUBJECTIVE: 66 year old white female hospitalized with spider bite anterior neck. According to the patient the swelling is a little less. She has no problems swallowing and eating. REVIEW OF SYSTEMS: CONSTITUTIONAL: No night sweats. No fatigue, malaise, lethargy. No fever or chills. HEENT: Eyes: No visual changes. No eye pain. No eye discharge. ENT: No runny nose. No epistaxis. No sinus pain. No sore throat. No odynophagia. No congestion. RESPIRATORY: No cough, no congestion. No hemoptysis. No shortness of breath. CARDIOVASCULAR: No angina symptoms. No CHF symptoms. No atypical chest pain for CAD. No palpitations. No orthopnea. GASTROINTESTINAL: No abdominal pain. No nausea or vomiting. No diarrhea or constipation. No hematemesis. No hematochezia. GENITOURINARY: No urgency. No frequency. No dysuria. No hematuria. No obstructive symptoms. No discharge. No pain. No significant abnormal bleeding. MUSCULOSKELETAL: No musculoskeletal pain; no joint swelling. NEUROLOGICAL: No headache. No neck pain. No syncope. No seizures. No dizziness. PSYCHIATRIC: Not anxious. No depression. No suicidal thoughts. No homicidal thoughts. SKIN: No rash. No lesions. No wounds. The itching is practically gone but swelling persists. ENDOCRINE: No unexplained weight loss. No weight gain. HEMATOLOGIC/LYMPHATIC: No anemia. No purpura. No petechiae. No prolonged or excessive bleeding. No palpable lymph nodes. PHYSICAL EXAMINATION: VITAL SIGNS: Temperature 98, pulse 75, respiratory rate 16, blood pressure 119/ 88 and pulse ox 97%. HEENT: Head normocephalic, atraumatic. Eyes: Extraocular muscles are intact. Pupils are equal, round and reactive to light and accommodation. Ears: No lesions. Nose appeared normal. Throat: No exudate or erythema. NECK: neck anteriorly has large 5in diameter swelling anterior to the thyroid gland. No JVD, no carotid bruit. No lymphadenopathy or thyromegaly. LUNGS: Clear to auscultation. Percussion note normal. Chest symmetrical. HEART: S1, S2, no S3. No murmurs. No cyanosis or clubbing. No ascites. Pulses: Dorsalis pedis and posterior tibial pulses +1 to +2 both sides. ABDOMEN: Soft. Nontender. Bowel sounds active. No CVA tenderness. No mass felt. EXTREMITIES: No edema. Full range of motion of all extremities, equal. NEUROLOGIC: No focal deficit. Cranial nerves II through XII are grossly intact. No headache, no double vision or headache. SKIN: Not dry. Intact. Turgor - normal. LYMPHATIC: No palpable lymph nodes/no lymphedema. MUSCULOSKELETAL: Normal joints with no swelling. Muscle tone is normal. LABS: Hgb 12.2, hct 35, WBC 9,800 normal differential, creatinine 0.7, BUN 20, potassium 3.9. ASSESSMENT: 1. Spider bite with large swelling. 2. Cellulitis by CT scan PLAN: 1. Continue steroids 2. Antibiotics Vancomycin 3. The patient says that she slept well with practically not itching. The patient was started on Decadron which seems to be helping. CONDITION: Stable. The patient is not on any other antibiotic except for Vancomycin so we will investigate about what kind of antibiotics she got in the emergency room and go from there. Doxycycline 100mg twice a day was added with Vancomycin for her infected insect bite with cellulitis. TIME SPENT: More than 30 minutes. Plan and coordination of the patient's care discussed in the presence of nurse. JULIANN
--- NOTE | 2016-11-28 08:52 | PN ---
DATE OF SERVICE: 11/27/16 SUBJECTIVE: 66 year old white female hospitalized with cellulitis of the neck. The patient has CT scan repeat scheduled. The patient is on Vancomycin and Doxycycline. The swelling is less than before. Condition it improving slowly. The patient is afebrile. LABS: Normal with normal WBC, creatinine 0.8, BUN 21, glucose normal. Lipid profile normal. CONDITION: Stable. TIME SPENT: More than 30 minutes. Plan and coordination of the patient's care discussed in the presence of nurse. JULIANN
--- NOTE | 2016-11-28 10:26 | PCM.PROG ---
Attending Provider: ATTENDING PROVIDER: Dr. RACHEL BARRON This patient is seen with Katy Shankar, Nurse Practitioner. DATE OF SERVICE: 11/28/16 SUBJECTIVE: This 66 year old WHITE/ F was hospitalized 11/24/16. The patient is alert, sitting up in bed. Redness and swelling slightly improved. No fever. Repeat CT scan showed no abscess. REVIEW OF SYSTEMS: CONSTITUTIONAL: No night sweats. No fatigue, malaise, lethargy. No fever or chills. HEENT: Eyes: No visual changes. No eye pain. No eye discharge. ENT: No runny nose. No epistaxis. No sinus pain. No odynophagia. No congestion. RESPIRATORY: No cough, no congestion. No hemoptysis. No shortness of breath. CARDIOVASCULAR: No angina symptoms. No CHF symptoms. No atypical chest pain for CAD. No palpitations. No orthopnea.. GASTROINTESTINAL: No abdominal pain. No nausea or vomiting. No diarrhea or constipation. No hematemesis. No hematochezia. GENITOURINARY: No urgency. No frequency. No dysuria. No hematuria. No obstructive symptoms. No discharge. No pain. No significant abnormal bleeding. MUSCULOSKELETAL: Neck swelling. NEUROLOGICAL: Awake, alert, oriented to time, place and person. No headache. No neck pain. No syncope. No seizures. No dizziness. PSYCHIATRIC: Not anxious. No depression. No suicidal thoughts. No homicidal thoughts. SKIN: No rash. No lesions. No wounds. ENDOCRINE: No unexplained weight loss. No weight gain. HEMATOLOGIC/LYMPHATIC: No anemia. No purpura. No petechiae. No prolonged or excessive bleeding. No palpable lymph nodes. PHYSICAL EXAMINATION: GENERAL: The patient is awake, alert and oriented, lying in bed in no distress. VITAL SIGNS: Temperature 97.8 F, Pulse 77, Respiratory Rate 14, BP 118/74, Pulse Ox 94% HEENT: Head normocephalic, atraumatic. Eyes: Extraocular muscles are intact. Pupils are equal, round and reactive to light and accommodation. Ears: No lesions. Nose appeared normal. Throat: No exudate or erythema. NECK: Supple. No JVD, no carotid bruit. No lymphadenopathy or thyromegaly. LUNGS: Diminished breath sounds bilaterally. Clear to auscultation. Percussion note normal. Chest symmetrical. HEART: S1, S2, no S3. No murmurs. No cyanosis or clubbing. No ascites. Pulses: Dorsalis pedis and posterior tibial pulses +1 to +2 both sides. ABDOMEN: Soft. Non-tender. Bowel sounds active. No CVA tenderness. No mass felt. EXTREMITIES: No edema. Full range of motion of all extremities, equal. NEUROLOGIC: No focal deficit. Cranial nerves II through XII are grossly intact. No headache, no double vision or headache. SKIN: Improved redness and swelling of anterior neck with small central lesion, dark discoloration. No drainage. Mild tenderness, more soft today. LYMPHATIC: No palpable lymph nodes/no lymphedema. MUSCULOSKELETAL: Normal joints with no swelling. Muscle tone is normal. LAB REVIEW: 11/28/16 05:04 11/28/16 05:04 11/28/16 05:04: Sodium 141, Potassium 4.6, Chloride 104, Carbon Dioxide 28, Anion Gap 13.6, BUN 29 H, Creatinine 0.91, Estimated GFR (MDRD) 62.00, BUN/ Creatinine Ratio 31.86, Glucose 108, Calcium 10.1, Total Bilirubin 0.62, AST 14 L, ALT 12, Alkaline Phosphatase 64, Total Protein 7.2, Albumin 3.3 L, Globulin 3.9, Albumin/Globulin Ratio 0.85 11/28/16 05:04: WBC 11.82 H, RBC 3.94 L, Hgb 12.1, Hct 36.0 L, MCV 91.4, MCH 30.7, MCHC 33.6, RDW Coeff of Jaclyn 14.2, Plt Count 223, Immature Gran % (Auto) 1.0, Neut % (Auto) 42.3, Lymph % (Auto) 48.3, [place] % (Auto) 6.2, Eos % (Auto) 1.5, Baso % (Auto) 0.7, Immature Gran # (Auto) 0.1, Neut # 5.0, Lymph # 5.7 H, [place] # 0.7, Eos # 0.2, Baso # 0.1 11/27/16 20:30: Vancomycin Trough 11.03 ASSESSMENT: 1. Cellulitis of neck. 2. Questionable insect bite PLAN: 1. Continue to monitor 2. Possible D/C home today Plan and coordination of the patient's care discussed in the presence of Bridge Tender and nurse. CONDITION: Stable SCRIBED BY: SRAVANI JOHNSON Tow Truck Operator scribed while in presence of service performed by Dr. Barron/Katy Shankar APRN on 11/28/16 ([id number])
--- NOTE | 2016-11-28 11:27 | HP ---
DATE OF SERVICE: 11/24/16 REASON FOR HOSPITALIZATION: Cellulitis of the neck HISTORY OF PRESENT ILLNESS: The patient was seen the day prior to admission with the same problem and was given antibiotics and steroids with no improvement. The patient's swelling according to the nursing staffs seems to be the same. It is in the anterior of the neck. The CT scan showed cellulitis but not abscess formation. The patient thinks that she had a spider bite three days ago and found swelling of the neck when she woke up from her sleep. The patient started having itching yesterday at the same area. PAST MEDICAL HISTORY/PAST SURGICAL HISTORY: Rheumatoid arthritis Infected spider bite on the anterior part of the neck Dyslipidemia Hypertension Constipation Reflux disease Hypothyroidism REVIEW OF SYSTEMS: CONSTITUTIONAL: No night sweats. Fatigued and tired feeling. No fever or chills. HEENT: Eyes: No visual changes. No eye pain. No eye discharge. ENT: No runny nose. No epistaxis. No sinus pain. No sore throat. No odynophagia. No ear pain. No congestion. RESPIRATORY: Mild chronic cough, no congestion. No hemoptysis. CARDIOVASCULAR: No angina symptoms. No CHF symptoms. No atypical chest pain for CAD. No palpitations. No orthopnea. Shortness of breath as usual. No PND. GASTROINTESTINAL: No abdominal pain. Mild nausea a couple of days ago but non now. No diarrhea or constipation. No hematemesis. No hematochezia. Appetite normal GENITOURINARY: No urgency. No frequency. No dysuria. No hematuria. No obstructive symptoms. No discharge. No pain. No significant abnormal bleeding. MUSCULOSKELETAL: No musculoskeletal pain. No joint swelling. No arthritis. NEUROLOGICAL: No headache. No neck pain. No syncope. No seizures. No dizziness. PSYCHIATRIC: Not anxious. No depression. No suicidal thoughts. No homicidal thoughts. SKIN: No rash. No lesions. No wounds. ENDOCRINE: No unexplained weight loss. No weight gain. HEMATOLOGIC/LYMPHATIC: No anemia. No purpura. No petechiae. No prolonged or excessive bleeding. No palpable lymph nodes. PERSONAL/FAMILY/SOCIAL HISTORY: The patient is non-smoker, no alcohol abuse. Does all activity of daily living. and lives with the . BMI is 32 and weight 164 pounds. MEDICATIONS: Amitriptyline 10mg PO at bedtime Aspirin 81mg PO daily Lipitor 20mg PO at bedtime Bupropion 150mg PO bedtime Celebrex 200mg PO with meal Keflex 500mg Q 6 hours Vitamin D 1,000 unit 400 units daily Cymbalta 60mg at bedtime Nexium 40mg PO daily Hydroxychloroquine 100mg PO daily Synthroid 100mcg PO daily Prednisone dose pack Nitroglycerin PRN [place] 3 fatty acid one daily Tramadol 50mg PO four times a day for pain Tylenol 500mg PO three times a day for pain ALLERGIES: None. PHYSICAL EXAMINATION: GENERAL: The patient is oriented to time, place and person. VITAL SIGNS: Temperature 97.9, pulse 89, respiratory rate15, blood pressure 117 /71 and pulse ox 94%. HEENT: Head normocephalic, atraumatic. Eyes: Extraocular muscles are intact. Pupils are equal, round and reactive to light and accommodation. Ears: No lesions. Nose appeared normal. Throat: No exudate or erythema. Oral cavity is normal with difficulty swallowing. NECK: Supple. No JVP, no carotid bruit. No lymphadenopathy or thyromegaly. [place] of the neck anteriorly with no redness. The redness as practically subsided. [place] of the swelling noted on the left side of the neck. It is not fluctuant and there is no redness. LUNGS: Decreased breath sounds but clear to auscultation. Percussion note normal. Chest symmetrical. HEART: S1, S2, no S3. No murmurs. No cyanosis or clubbing. No ascites. Pulses: Dorsalis pedis and posterior tibial pulses +1 bilaterally. ABDOMEN: Soft. Nontender. Bowel sounds active. No CVA tenderness. No mass felt. EXTREMITIES: Trace edema. Full range of motion of all extremities, equal. NEUROLOGIC: No focal deficit. Cranial nerves II through XII are grossly intact. No headache, no double vision or headache. SKIN: Not dry. Intact. Turgor - normal. LYMPHATIC: No palpable lymph nodes/no lymphedema. MUSCULOSKELETAL: Normal joints with no swelling. Muscle tone is normal. LABS: Hgb 12, hct 37, WBC 9,000 normal differential, creatinine 0.7, BUN 16. CT scan of neck showed moderate anterior neck cellulitis extending from the submandibular to the submantle region to the thoracic inlet. ASSESSMENT: 1. Cellulitis of the neck 2. Rheumatoid arthritis 3. Hypertension 4. Fibromyalgia 5. Connected tissue disease PLAN: 1. Give patient double antibiotics 2. Steroids 3. Watch for any problems swallowing or swelling inside the mouth 4. IV fluids 5. The patient is on Vancomycin and Rocephin 6. Continue the rest of the medications 7. The patient is on Celebrex, Cymbalta, Celexa and Synthroid. CONDITION: Stable. TIME SPENT: More than 70 minutes. MTDD
[2016-11-28] MEDS: ELAVIL PO SCH (20:42)
[2016-11-28] MEDS: WELLBUTRIN SR PO SCH (20:42)
[2016-11-28] MEDS: CYMBALTA PO SCH (20:43)
[2016-11-29 05:26] LABS: BASOPHILS # (AUTO) 0.1 K/uL (0-0.2); BASOPHILS % (AUTO) 0.8 % (0.0-3.0); EOSINOPHILS # (AUTO) 0.3 K/ul (0.0-0.7); EOSINOPHILS % (AUTO) 3.1 % (0.0-7.0); HEMATOCRIT 37.2 % (37.0-47.0); HEMOGLOBIN 12.3 g/dl (12.0-16.0); IMMATURE GRANULOCYTE % (AUTO) 1.2 % (0.0-5.0); LYMPHOCYTES # (AUTO) 5.3 K/uL (0.60-3.4); LYMPHOCYTES % (AUTO) 51.4 (10.0-50.0); MEAN CORPUSCULAR HEMOGLOBIN 30.1 pg (27.0-31.0); MEAN CORPUSCULAR HGB CONC 33.1 (31.8-35.4); MONOCYTES # (AUTO) 0.7 K/uL (0.4-2.0); MONOCYTES % (AUTO) 6.3 (0-10); NEUTROPHILS # (AUTO) 3.8 K/ul (2.0-6.9); NEUTROPHILS % (AUTO) 37.2; PLATELET COUNT 232 10^3/uL (140-440); RED BLOOD COUNT 4.09 10^6/ul (4.20-5.40); WHITE BLOOD COUNT 10.28 K/ul (4.6-10.2)
[2016-11-29 05:54] LABS: ALBUMIN 3.2 g/dL (3.4-5.0); ALBUMIN/GLOBULIN RATIO 0.86; ANION GAP 14.3; BILIRUBIN,TOTAL 0.59 mg/dL (0.00-1.20); BUN/CREATININE RATIO 32.98; CALCIUM 9.8 mg/dL (8.2-10.2); CREATININE 0.97 mg/dL (0.60-1.30); POTASSIUM 4.3 mmol/L (3.5-5.10); TOTAL PROTEIN 6.9 g/dL (5.8-8.1)
[2016-11-29] MEDS: PROTONIX PO SCH (05:55)
[2016-11-29] MEDS: SYNTHROID PO SCH (05:55)
[2016-11-29] MEDS: COLACE PO SCH (09:00)
[2016-11-29] MEDS: LIPITOR PO SCH (09:00)
[2016-11-29] MEDS: DOXYCYCLINE HYCLATE PO SCH (09:00)
[2016-11-29] MEDS: CELEBREX PO SCH (09:00)
[2016-11-29] MEDS: OMEGA-3 FISH OIL PO SCH (09:00)
[2016-11-29] MEDS: ASPIRIN CHEWABLE PO SCH (09:00)
[2016-11-29] MEDS: VITAMIN D PO SCH (09:01)
[2016-11-29] MEDS: K-DUR PO SCH (09:01)
[2016-11-29] MEDS: TYLENOL PO SCH (09:01)
[2016-11-29] MEDS: PLAQUENIL PO SCH (09:01)
[2016-11-29] MEDS: CALCIUM 500 + VIT D 200 MG TABLET PO SCH (09:01)
[2016-11-29] MEDS: VANCOMYCIN 500 MG in SODIUM CHLORIDE 100 ML IV SCH (09:02)
[2016-11-29] MEDS: ULTRAM PO SCH (09:07)
--- NOTE | 2016-11-29 09:21 | CONS ---
DATE OF SERVICE: 11/29/16 REASON FOR CONSULTATION: 66-year-old lady with history of being bitten by a brown recluse spider with swelling of the neck. She denied any history of difficulty swallowing or airway obstruction. PHYSICAL EXAMINATION: EARS: Clear NOSE: Normal mucosa. MOUTH: Oral pharynx reveals no lesions. Hypopharynx reveals good movement of vocal cords with evidence of subglottic edema. NECK: Reveals essential swelling submental area with bite impression, probably a brown recluse spider bite. RECOMMENDATIONS: 1. Agree with medical management and do not feel she will have any airway problems. CC: DR. ANDERSON HUMPHREYS
[2016-11-29 09:42] VITALS: BP 138/85; TEMP 97.4
--- NOTE | 2016-11-29 10:47 | PN ---
DATE OF SERVICE: 11/28/16 SUBJECTIVE: 66 year old white female hospitalized with cellulitis of the neck with insect bite. The patient's swelling is much less than on admission. It is a little bit soft. Repeat CAT scan yesterday showed cellulitis with no abscess formation. The patient's labs are acceptable with WBC of 11,800. Continue Antibiotics Vancomycin and Doxycycline. CONDITION: Stable The patient was seen and examined with Nurse Practitioner. TIME SPENT: More than 30 minutes. Plan and coordination of the patient's care discussed in the presence of nurse. JULIANN
--- NOTE | 2016-11-29 10:51 | CM.DICTOOL ---
ADMISSION: 11/24/16 15:10 DISCHARGE: November 29, 2016 DATE OF SERVICE: 11/29/16 FINAL DIAGNOSIS Cellulitis, anterior neck Possible insect bite submandibular area Hypokalemia, resolved Right maxillary sinusitis Hypertension Dyslipidemia Hypothyroid Rheumatoid arthritis Fibromyalgia Connective Tissue Disease Degenerative Disc Disease, spine GERD Constipation LAST VITALS Temp Pulse Resp BP Pulse Ox 97.4 F L 83 20 138/85 95 11/29/16 09:42 11/29/16 09:42 11/29/16 09:42 11/29/16 09:42 11/29/16 09:42 ACTIVE HOME MEDICATIONS Acetaminophen (Tylenol) 500 mg PO TID [facility] Last Admin: 11/29/16 09:01 Dose: 500 mg Amitriptyline HCl (Elavil) 10 mg PO BEDTIME [facility] Last Admin: 11/28/16 20:42 Dose: 10 mg Aspirin (Aspirin Chewable) 81 mg PO DAILYWM [facility] Last Admin: 11/29/16 09:00 Dose: 81 mg Atorvastatin Calcium (Lipitor) 20 mg PO DAILY [facility] Last Admin: 11/29/16 09:00 Dose: 20 mg Bupropion HCl (Wellbutrin Sr) 150 mg PO BEDTIME [facility] Last Admin: 11/28/16 20:42 Dose: 150 mg Calcium/Vitamin D (Calcium 500 + Vit D 200 Mg Tablet) 1 each PO TID [facility] Last Admin: 11/29/16 09:01 Dose: 1 each Celecoxib (Celebrex) 200 mg PO DAILYWM [facility] Last Admin: 11/29/16 09:00 Dose: 200 mg Cholecalciferol (Vitamin D) 400 unit PO DAILY [facility] Last Admin: 11/29/16 09:01 Dose: 400 unit Docusate Sodium (Colace) 100 mg PO TID [facility] Last Admin: 11/29/16 09:00 Dose: 100 mg Duloxetine HCl (Cymbalta) 60 mg PO BEDTIME [facility] Last Admin: 11/28/16 20:43 Dose: 60 mg Fish Oil ([place]-3 Fish Oil) 1,000 mg PO TID [facility] Last Admin: 11/29/16 09:00 Dose: 1,000 mg Hydroxychloroquine Sulfate (Plaquenil) 200 mg PO BIDWM [facility] Last Admin: 11/29/16 09:01 Dose: 200 mg Levothyroxine Sodium (Synthroid) 100 mcg PO QDAC [facility] Last Admin: 11/29/16 05:55 Dose: 100 mcg Nitroglycerin (Nitrostat) 0.4 mg SL Q5MIN X 3 DOSES PRN PRN Reason: Angina Esomeprazole Magnesium (Nexium) 40 mg PO QDAC [facility] Last Admin: 11/29/16 05:55 Dose: 40 mg Tramadol HCl (Ultram) 50 mg PO QID [facility] Last Admin: 11/29/16 09:07 Dose: 50 mg ALLERGIES No Known Allergies Allergy (Unverified 11/23/16 17:54) NEW PRESCRIPTIONS: Bactrim take 1 twice a day for 3 days Doxycycline 100 mg take 1 twice a day for 7 days SMOKING: Not Applicable DISEASE SPECIFIC EDUCATION: Medications Cellulitis Insect Bite Appointment LAB REVIEW: 11/29/16 05:24 11/29/16 05:24 11/29/16 05:24: Sodium 139, Potassium 4.3, Chloride 102, Carbon Dioxide 27, Anion Gap 14.3, BUN 32 H, Creatinine 0.97, Estimated GFR (MDRD) 58.00, BUN/ Creatinine Ratio 32.98, Glucose 93, Calcium 9.8, Total Bilirubin 0.59, AST 15, ALT 11 L, Alkaline Phosphatase 63, Total Protein 6.9, Albumin 3.2 L, Globulin 3.7, Albumin/Globulin Ratio 0.86 11/29/16 05:24: WBC 10.28 H, RBC 4.09 L, Hgb 12.3, Hct 37.2, MCV 91.0, MCH 30.1 , MCHC 33.1, RDW Coeff of Jaclyn 14.4, Plt Count 232, Immature Gran % (Auto) 1.2, Neut % (Auto) 37.2, Lymph % (Auto) 51.4 H, [place] % (Auto) 6.3, Eos % (Auto) 3.1, Baso % (Auto) 0.8, Immature Gran # (Auto) 0.1, Neut # 3.8, Lymph # 5.3 H, [place] # 0.7, Eos # 0.3, Baso # 0.1 PLAN: Discharge home Diet: Regular as tolerated Activity: Resume as tolerated Continue home medications as listed on nursing discharge information sheet An appointment is scheduled with Dr. Abdalla/Katy Shankar APRN on December 04 at 10:30 am Please return to ER or notify Dr. Abdalla if increased redness/swelling, red streaking or drainage occurs to bite area. Notify Dr. Abdalla or come to ER if you develop any fever. Mrs. Romano is alert and oriented x 3. She is independent with Activities of Daily Living. She is ambulatory to the bathroom and in the room without use of an assistive device. She denies pain or tenderness to the neck area. She reports the skin feels dry and she has itching. A small brown area, less than 1 cm is noted to the anterior neck with surrounding light purple discoloration. The neck remains slightly swollen, less firm and lightly pink in color. No drainage is noted to the area of discoloration. No other skin irritation or redness noted. No open areas noted. Waldemar Abdalla MD
--- NOTE | 2016-12-04 14:50 | PN ---
DATE OF SERVICE: 11/29/16 - DISCHARGE NOTE SUBJECTIVE: 66-year-old white female hospitalized with spider bite with cellulitis. The patient's cellulitis seems to be resolving. She was seen by ENT surgeon and he agreed with the management. The patient will be discharged home. The patient still has half the size of swelling of what she had when she came in. No difficulty swallowing. The patient has no problems breathing. She is feeling a lot better. No fever, no chills. REVIEW OF SYSTEMS: CONSTITUTIONAL: No night sweats. No fatigue, malaise, lethargy. No fever or chills. HEENT: Eyes: No visual changes. No eye pain. No eye discharge. ENT: No runny nose. No epistaxis. No sinus pain. No sore throat. No odynophagia. No congestion. RESPIRATORY: No cough, no congestion. No hemoptysis. No shortness of breath. CARDIOVASCULAR: No angina symptoms. No CHF symptoms. No atypical chest pain for CAD. No palpitations. No orthopnea. GASTROINTESTINAL: No abdominal pain. No nausea or vomiting. No diarrhea or constipation. No hematemesis. No hematochezia. GENITOURINARY: No urgency. No frequency. No dysuria. No hematuria. No obstructive symptoms. No discharge. No pain. No significant abnormal bleeding. MUSCULOSKELETAL: No musculoskeletal pain; no joint swelling. NEUROLOGICAL: No headache. No neck pain. No syncope. No seizures. No dizziness. PSYCHIATRIC: Not anxious. No depression. No suicidal thoughts. No homicidal thoughts. SKIN: The swelling anteriorly in the neck area seems to be somewhat fluctuant but no drainage. The center seems to be a little darkened. ENDOCRINE: No unexplained weight loss. No weight gain. HEMATOLOGIC/LYMPHATIC: No anemia. No purpura. No petechiae. No prolonged or excessive bleeding. No palpable lymph nodes. PHYSICAL EXAMINATION: VITAL SIGNS: Temperature 97.6, pulse 90, respiratory rate 16, BP 110/70. Pulse ox 95%. HEENT: Head normocephalic, atraumatic. Eyes: Extraocular muscles are intact. Pupils are equal, round and reactive to light and accommodation. Ears: No lesions. Nose appeared normal. Throat: No exudate or erythema. NECK: Supple. No JVD, no carotid bruit. No lymphadenopathy or thyromegaly. LUNGS: Decreased breath sounds but clear to auscultation. Percussion note normal. Chest symmetrical. HEART: S1, S2, no S3. No murmurs. No cyanosis or clubbing. No ascites. Pulses: Dorsalis pedis and posterior tibial pulses +1 to +2 both sides. ABDOMEN: Soft. Nontender. Bowel sounds active. No CVA tenderness. No mass felt. EXTREMITIES: No edema. Full range of motion of all extremities, equal. NEUROLOGIC: No focal deficit. Cranial nerves II through XII are grossly intact. No headache, no double vision or headache. SKIN: The swelling anteriorly in the neck area seems to be somewhat fluctuant but no drainage. The center seems to be a little darkened. LYMPHATIC: No palpable lymph nodes/no lymphedema. MUSCULOSKELETAL: Normal joints with no swelling. Muscle tone is normal. ASSESSMENT: 1. CELLULITIS OF THE NECK WITH INSECT BITE LIKELY SPIDER. PLAN: 1. Doxycycline 2. Tetra or Sulfa 3. She will be seen in the office in 4 to 5 days 4. 1 cc Decadron before discharge CONDITION; Stable; improving. TIME SPENT: More than 30 minutes. Plan and coordination of the patient's care discussed in the presence of nurse. JULIANN
--- NOTE | 2016-12-05 10:03 | DS ---
DATE OF SERVICE: 11/29/16 FINAL DIAGNOSIS: 1. CELLULITIS, ANTERIOR NECK 2. POSSIBLE INSECT BITE SUBMANDIBULAR AREA 3. HYPOKALEMIA RESOLVED 4. RIGHT MAXILLARY SINUSITIS 5. HYPERTENSION 6. DYSLIPIDEMIA 7. HYPOTHYROID 8. RHEUMATOID ARTHRITIS 9. FIBROMYALGIA 10. 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 GERD 13. CONSTIPATION DISCHARGE INSTRUCTIONS: 1. An appointment is scheduled with Dr. Abdalla/Katy Shankar APRN on December 04 at 10:30 a.m. 2. Please return to ER or notify Dr. Abdalla if increased redness/swelling, red streaking or drainage occurs to bite area. Notify Dr. Abdalla or come to ER if you develop any fever. MEDICATIONS AT DISCHARGE: Acetaminophen (Tylenol) 500 mg p.o. t.i.d. CARISSA Amitriptyline (Elavil) 10 mg p.o. bedtime CARISSA Aspirin 81 mg p.o. daily with meal CARISSA Atorvastin (Lipitor) 20 mg p.o. daily [facility]SA Buproprion (Wellbutrin SR) 150 mg p.o. bedtime CARISSA Calcium/Vitamin D (Calcium 500+Vit D 200 mg) one each t.i.d. CARISSA Celecoxib (Celebrex) 200 mg p.o. daily with meal CARISSA Cholecalciferol (Vitamin D) 400 unit p.o. daily [facility] Docusate (Colace) 100 mg p.o. t.i.d. CARISSA Duloxetine (Cymbalta) 60 mg p.o. bedtime CARISSA Fish Oil ([place] 3 Fish Oil) 1,000 mg p.o. t.i.d. CARISSA Hydroxychloroquine (Plaquenil) 200 mg p.o. b.i.d. with meal CARISSA Levothyroxine (Synthroid) 100 mcg p.o. q.d a.c. CARISSA Nitroglycerin (Nitrostat) 0.4 mg SL q.5 min times three doses p.r.n. Esomeprazole Magnesium (Nexium) 40 mg p.o. q.d a.c. CARISSA Tramadol (Ultram) 50 mg p.o. q.i.d. CARISSA NEW PRESCRIPTIONS: Bactrim take one twice a day for 3 days Doxycycline 100 mg take one twice a day for 7 days DIET INSTRUCTIONS: Regular ACTIVITY: Resume as tolerated SMOKING: N/A DISEASE SPECIFIC EDUCATION: Medications Cellulitis Insect bite Appointment HOSPITAL COURSE: 66-year-old white female hospitalized with likely spider bite with cellulitis with large swelling measuring up to 6 inches in diameter, spreading over the anterior part of the neck in the middle. The patient never had difficulty breathing or swallowing. The floor of the mouth was practically normal. The patient was treated with Vancomycin and Rocephin initially but later on switched to Doxycycline and Vancomycin. The patient was discharged home on Septra b.i.d. to be taken five days and Doxycycline to be taken 7 days. Any sign of infections, redness, discharge she is advised to go to the emergency room and contact me. LABS: Hemoglobin 12.3, hematocrit 37, WBC 10,200, normal differential. Creatinine 0.9 , BUN 32, potassium 4.3. CONDITION AT TIME OF DISCHARGE: Stable. TIME SPENT: More than 60 minutes. MTDD
--- NOTE | 2016-12-05 10:05 | PN ---
CODING FOR BILLING 11/24/16 LEVEL 5 11/25/16 INTERMEDIATE 11/26/16 INTERMEDIATE 11/27/16 INTERMEDIATE 11/28/16 INTERMEDIATE 11/29/16 DISCHARGE CC: DARRELL HUMPHREYS
== END 2016-11-29 12:45 | disposition home or self-care (01) | DRG 603 ==
LOC: ED 12:53 → MEDSURG A 15:10
PROVIDERS: ADMIT Internal Medicine; ATTEND Internal Medicine
DX: L03.221 Cellulitis of neck (principal); S10.86XA Insect bite of other specified part of neck, initial encounter; W57.XXXA Bitten or stung by nonvenomous insect and other nonvenomous arthropods, initial encounter; E87.6 Hypokalemia; J01.00 Acute maxillary sinusitis, unspecified; I10 Essential (primary) hypertension; E78.5 Hyperlipidemia, unspecified; E03.9 Hypothyroidism, unspecified; M06.9 Rheumatoid arthritis, unspecified; M79.7 Fibromyalgia; M35.9 Systemic involvement of connective tissue, unspecified; M50.323 Other cervical disc degeneration at C6-C7 level; K21.9 Gastro-esophageal reflux disease without esophagitis; K59.00 Constipation, unspecified; Z79.899 Other long term (current) drug therapy
CPT/HCPCS: 36415; 80053; 80202; 83605; 84145; 85025; 87040; 93005; 93010; 96365; 99284

== ENCOUNTER 2017-08-27 08:59 | Outpatient (CLI) | payer OTHER | END 2017-08-27 09:00 | disposition home or self-care (01) | LOC: RAD 08:59 | PROVIDERS: ATTEND Internal Medicine | DX: Z12.31 Encounter for screening mammogram for malignant neoplasm of breast (principal) | CPT/HCPCS: 77067 ==

== ENCOUNTER 2020-03-11 10:34 | Inpatient (IN) ==
[2020-03-11] MEDS ORDERED: TYLENOL PO PRN (10:48)
[2020-03-11] MEDS ORDERED: ATROPINE SULFATE PFS IVP PRN (10:48)
[2020-03-11] MEDS ORDERED: VISTARIL INJ IM PRN (10:48)
[2020-03-11] MEDS ORDERED: NITROSTAT SL PRN (10:48)
[2020-03-11 11:07] VITALS: BMI 33.1
[2020-03-11 11:22] LABS: BASOPHILS % (AUTO) 0.4 % (0.0-3.0); EOSINOPHILS % (AUTO) 0.7 % (0.0-7.0); HEMOGLOBIN 11.3 g/dl (12.0-16.0); IMMATURE GRANULOCYTE % (AUTO) 0.2 % (0.0-5.0); LYMPHOCYTES # (AUTO) 2.3 K/uL (0.60-3.4); LYMPHOCYTES % (AUTO) 41.5 (10.0-50.0); MEAN CORPUSCULAR HEMOGLOBIN 26.7 pg (27.0-31.0); MEAN CORPUSCULAR HGB CONC 33.2 (31.8-35.4); MEAN CORPUSCULAR VOLUME 80.2 fl (81.0-99.0); MONOCYTES # (AUTO) 0.5 K/uL (0.4-2.0); MONOCYTES % (AUTO) 9.7 (0-10); NEUTROPHILS # (AUTO) 2.6 K/ul (2.0-6.9); NEUTROPHILS % (AUTO) 47.5 % (42.2-75.2); PLATELET COUNT 205 10^3/uL (140-440); RDW COEFFICIENT OF VARIATION 16.6 % (11.6-14.8); RED BLOOD COUNT 4.24 10^6/ul (4.20-5.40); WHITE BLOOD COUNT 5.47 K/ul (4.6-10.2)
[2020-03-11 11:35] LABS: ALANINE AMINOTRANSFERASE 14.9 U/L (0-35); ALBUMIN 4.53 g/dL (3.5-5.0); ALKALINE PHOSPHATASE 64.9 U/L (53-141); ASPARTATE AMINO TRANSFERASE 31.3 U/L (14-36); BILIRUBIN,TOTAL 0.97 mg/dL (0.2-1.3); BLOOD UREA NITROGEN 18.7 mg/dL (7-17); CALCIUM 9.41 mg/dL (8.4-10.2); CARBON DIOXIDE 30.2 mmol/L (22-30.0); CHLORIDE 97.3 mmol/L (98-107); CREATINE KINASE 77.7 U/L (30-135); CREATININE 0.89 mg/dL (0.60-1.30); GLUCOSE 131.3 mg/dL (74-106); SODIUM 138.4 mmol/L (134.5-145); TOTAL PROTEIN 7.93 g/dL (6.3-8.2)
[2020-03-11 11:57] LABS: FREE T4 (FREE THYROXINE) 1.24 ng/dL (0.78-2.19)
[2020-03-11 12:14] LABS: POTASSIUM 2.62 mmol/L (3.5-5.1); TROPONIN I < 0.012 ng/ml (0.0000-0.120)
[2020-03-11] MEDS ORDERED: K-DUR PO ONE ×4 (13:49→23:00)
[2020-03-11] MEDS: ULTRAM PO SCH ×3 (14:22→20:00)
--- NOTE | 2020-03-11 14:26 | DI ---
Exam: Single view of the chest. Comparison: None available. Reason for exam: Short of breath. FINDINGS: Patchy airspace opacities in the lung bases. The cardiac silhouette appears prominent in size. Image interpretation is limited by body habitus. Impression: Basilar atelectasis/pneumonia in the setting of suspected cardiomegaly. Image interpretation is limi guerline by habitus. Consider two-view chest x-ray for further characterization.
[2020-03-11] MEDS: [UNRECOGNIZED DRUG - MIXTURE] IV SCH (14:40)
--- NOTE | 2020-03-11 15:22 | RS.PTINEVL ---
Subjective - Patient information Date of Evaluation: 03/11/20 Date of Arrival on Unit: 03/11/20 Admitted From:: Home Diagnosis: SOA, fatigue, hypokalemia, difficulty walking, impaired balance. Usual Living Arrangement: With Spouse Home Environment: House, Stairs (few), Rail Medical History: Hypertension, Dementia, Arthritis Medical History Comments:: GERD, CAD, fibromyalgia, hypothyroidism LATEX ALLERGY?: No Surgical History: Knee Replacement (RTKR 09/2019) Medications: see chart Subjective Information/ Patient Comments:: pt states that she doesn't know why MD put her in the hospital. She states that she has only been using w/c for past 3-4 days because her did not want her to fall. She states that "her nerves are gone". - Level of function Prior to this admission, the patient could do the following:: Partially Dependent Ambulation Current Level of Function: Partially Dependent Current Equipment Used at Home: shower chair, rolling walker, wheelchair, cane, BSC Pain Assessement - Location L knee Description: Sharp, Aching Pain Behavior: Moaning, Rubbing Site, Facial Grimacing Pain Aggravating Factors: Changing Position, Exercise/Activity, Standing Pain Alleviating Factors: Medication Interventions - Objective Patient Orientation: Person, Place, Time Current Interventions: IV's, Oxygen (2 liters), Telemetry Range of Motion - ROM Right Upper Extremity AROM: WFL's Left Upper Extremity AROM: WFL's Right Lower Extremity AROM: WFL's Left Lower Extremity AROM: Slight limitation (L knee ROM limited due to pain) Muscle Strength - Muscle Strength Right Upper Extremity Strength: Mild Weakness (grossly 4/5) Left Upper Extremity Strength: Mild Weakness (grossly 4/5) Right Lower Extremity Strength: Mild Weakness (hip flex 4-/5, knee flex/ext 4/5, ankle DF/PF 4/5) Left Lower Extremity Strength: Mild Weakness (hip flex 4-/5, knee flex/ext 3/5, ankle DF/PF 4/5) Sensation - Sensation Right Upper Extremity Sensation: Intact/Normal Left Upper Extremity Sensation: Intact/Normal Right Lower Extremity Sensation: Intact/Normal Left Lower Extremity Sensation: Intact/Normal Palpation Palpation Findings: Tenderness (tenderness to touch L knee) Balance - Sitting Balance and Reactions Static Sitting Balance: Fair Dynamic Sitting Balance: Fair - Standing Balance and Reactions Static Standing Balance: Poor Dynamic Standing Balance: Poor Functional Mobility - Bed Mobility Rolling R/L: Min Assist Scooting: Mod Assist, 2 person assist Supine to Sit: Mod Assist Sit to Supine: Mod Assist - Transfers Sit to Stand: Min Assist Stand to Sit: Min Assist - Safety Awareness Safety Awareness: Fair WEST INDEX SCORE: n/a Ambulation - Ambulation Assistive Device Used: Rolling Walker Orthotic/Prosthetic Device: No Distance: 20ft Assistance needed with Ambulation: Min Assist Gait Deviations: Narrow Based gait, Forward posture, Short stride Factors Affecting Ambulation: Decreased Balance, Pain, Weakness, Decreased ROM, Decreased Safety, Cognitive Status, Limited Endurance Treatment time - Time with patient Length of Evaluation: 21 Total treatment time: 30 Patient Education - Education Patient Education: Activity Modification, Education of Plan of Care Teaching Recipient: Patient Teaching Methods: Discussion Assessment - Assessment Problem List:: Decreased level of function, Requires training/education, Pain limits previous level of function, Cognitive status limits abilities Rehab Potential: Fair Further Therapy Indicated?: Yes Candidate for Swing Bed for Therapy Services?: pt may be a candidate for swing bed or possibly home health. Evaluation Complexity: HISTORY: Medium (OA, fibromyalgia, CAD, dementia, RTKR), EXAM OF BODY SYSTEMS: Medium (bed mobility, posture, strength, gait, transfers), CLINICAL PRESENTATION: Medium, CLINICAL DECISION MAKING: Medium Patient's Goal(s): go home Short Term Goals GOAL #1: pt demonstrate rolling in bed independently. Goal to be met by: 03/14/20 GOAL #2: Transfer sup to/from sit CGA Goal to be met by: 03/14/20 GOAL #3: Transfer sit to/from stand CGA Goal to be met by: 03/14/20 GOAL #4: pt amb with rwx 100 ft with CGA with no LOB Goal to be met by: 03/14/20 GOAL #5: Improve BLE strength 4/5 Goal to be met by: 03/14/20 Jail Goals GOAL #1: pt transfer supt to/from sit to/from stand SBA Goal to be met by: 03/17/20 GOAL #2: pt amb functional household distances with rwx with SBA no LOB Goal to be met by: 03/17/20 GOAL #3: Improve dyn stand balance fair with rwx Goal to be met by: 03/17/20 Plan Plan of Care: Therapeutic EX, Therapeutic Activity Other:: gait training Frequency of Treatment: 1-2 X day, as tolerated Duration of Treatment: 6 days Anticipated Discharge Destination: Home Treatment Diagnosis (ICD 10 Codes): difficulty walking R 26.2. balance impaired R 26.81. at risk of falls Z91.81 Has the Physician been added for Co-signature?: Yes
[2020-03-11] MEDS: PLAQUENIL PO SCH (17:48)
[2020-03-11 19:14] LABS: CREATINE KINASE 78.3 U/L (30-135)
[2020-03-11 19:27] LABS: TROPONIN I < 0.012 ng/ml (0.0000-0.120)
[2020-03-11] MEDS: LIPITOR PO SCH (19:59)
[2020-03-11] MEDS: CYMBALTA PO SCH (19:59)
[2020-03-11] MEDS: ELAVIL PO SCH (20:00)
[2020-03-11] MEDS: WELLBUTRIN XL PO SCH (20:00)
[2020-03-11] MEDS ORDERED: ELAVIL PO SCH (21:00)
[2020-03-12] MEDS ORDERED: POTASSIUM CHLORIDE 10 MEQ VIAL- ADDITIVE ONLY IV ONE (03:42)
[2020-03-12] MEDS: [UNRECOGNIZED DRUG - MIXTURE] IV SCH (03:47)
[2020-03-12 05:27] LABS: BASOPHILS % (AUTO) 0.4 % (0.0-3.0); EOSINOPHILS # (AUTO) 0.1 K/ul (0.0-0.7); EOSINOPHILS % (AUTO) 1.3 % (0.0-7.0); HEMATOCRIT 30.2 % (37.0-47.0); HEMOGLOBIN 9.9 g/dl (12.0-16.0); IMMATURE GRANULOCYTE % (AUTO) 0.4 % (0.0-5.0); LYMPHOCYTES # (AUTO) 2.7 K/uL (0.60-3.4); LYMPHOCYTES % (AUTO) 51.5 (10.0-50.0); MEAN CORPUSCULAR HEMOGLOBIN 26.9 pg (27.0-31.0); MEAN CORPUSCULAR HGB CONC 32.8 (31.8-35.4); MEAN CORPUSCULAR VOLUME 82.1 fl (81.0-99.0); MONOCYTES # (AUTO) 0.5 K/uL (0.4-2.0); MONOCYTES % (AUTO) 9.1 (0-10); NEUTROPHILS % (AUTO) 37.3 % (42.2-75.2); PLATELET COUNT 191 10^3/uL (140-440); RDW COEFFICIENT OF VARIATION 16.6 % (11.6-14.8); RED BLOOD COUNT 3.68 10^6/ul (4.20-5.40)
[2020-03-12 05:42] LABS: ALANINE AMINOTRANSFERASE 12.9 U/L (0-35); ALBUMIN 3.92 g/dL (3.5-5.0); ALKALINE PHOSPHATASE 55.6 U/L (53-141); ASPARTATE AMINO TRANSFERASE 27.9 U/L (14-36); BILIRUBIN,TOTAL 0.58 mg/dL (0.2-1.3); BLOOD UREA NITROGEN 16.1 mg/dL (7-17); CALCIUM 8.73 mg/dL (8.4-10.2); CARBON DIOXIDE 25.8 mmol/L (22-30.0); CHLORIDE 105.5 mmol/L (98-107); CREATININE 0.81 mg/dL (0.60-1.30); GLUCOSE 98.9 mg/dL (74-106); POTASSIUM 3.87 mmol/L (3.5-5.1); SODIUM 137.7 mmol/L (134.5-145); TOTAL PROTEIN 6.89 g/dL (6.3-8.2)
[2020-03-12] MEDS: PROTONIX PO SCH (06:03)
[2020-03-12] MEDS ORDERED: SYNTHROID PO SCH ×2 (06:30)
[2020-03-12] MEDS ORDERED: ASPIRIN EC PO SCH (08:30)
[2020-03-12] MEDS: K-DUR PO SCH (09:02)
[2020-03-12] MEDS: CELEBREX PO SCH (09:02)
[2020-03-12] MEDS: ASPIRIN CHEWABLE PO SCH (09:02)
[2020-03-12] MEDS: ULTRAM PO SCH ×4 (09:02→20:11)
[2020-03-12] MEDS: PLAQUENIL PO SCH ×2 (09:03→17:30)
[2020-03-12 09:15] LABS: BILIRUBIN,URINE Negative (NEGATIVE); CLARITY,URINE Cloudy (CLEAR); COLOR,URINE Yellow (YELLOW); GLUCOSE, URINE (UA) Negative (NEGATIVE); KETONES,URINE Negative (NEGATIVE); LEUKOCYTE ESTERASE ,URINE 2+ (NEGATIVE); NITRITE,URINE Positive (NEGATIVE); PH,URINE 5.5 (5-9); PROTEIN,URINE Trace (NEGATIVE); URINE, BLOOD Trace-intact (NEGATIVE); UROBILINOGEN,URINE 0.2 (0.2)
[2020-03-12 09:16] LABS: URINE WBC, MICROSCOPIC 50-100 (0-2)
[2020-03-12 09:17] LABS: BACTERIA,URINE 3+ (NOT PRESENT)
--- NOTE | 2020-03-12 09:39 | PCM.PROG ---
Attending Provider: ATTENDING PROVIDER: Dr. RACHEL BARRON DATE OF SERVICE: 03/12/20 SUBJECTIVE: This 69 year old /WHITE F was hospitalized 03/11/20 with fatigue, tired feeling and short of breath, who is COVID negative. The patient has hyperkalemia which seems to be have resolved. REVIEW OF SYSTEMS: CONSTITUTIONAL: No night sweats. No fatigue, malaise, lethargy. No fever or chills. HEENT: Eyes: No visual changes. No eye pain. No eye discharge. ENT: No runny nose. No epistaxis. No sinus pain. No odynophagia. No congestion. RESPIRATORY: No cough, no congestion. No hemoptysis. No shortness of breath. CARDIOVASCULAR: No angina symptoms. No CHF symptoms. No atypical chest pain for CAD. No palpitations. No orthopnea.. GASTROINTESTINAL: No abdominal pain. No nausea or vomiting. No diarrhea or constipation. No hematemesis. No hematochezia. GENITOURINARY: No urgency. No frequency. No dysuria. No hematuria. No obstructive symptoms. No discharge. No pain. No significant abnormal bleeding. MUSCULOSKELETAL: No musculoskeletal pain; no joint swelling. NEUROLOGICAL: Awake, alert, oriented to time, place and person. No headache. No neck pain. No syncope. No seizures. No dizziness. PSYCHIATRIC: Not anxious. No depression. No suicidal thoughts. No homicidal thoughts. SKIN: No rash. No lesions. No wounds. ENDOCRINE: No unexplained weight loss. No weight gain. HEMATOLOGIC/LYMPHATIC: No anemia. No purpura. No petechiae. No prolonged or excessive bleeding. No palpable lymph nodes. PHYSICAL EXAMINATION: GENERAL: The patient is awake, alert and oriented, lying in bed in no distress. VITAL SIGNS: Temperature 97.9 F, Pulse 66, Respiratory Rate 18, BP 108/59, Pulse Ox 98% HEENT: Head normocephalic, atraumatic. Eyes: Extraocular muscles are intact. Pupils are equal, round and reactive to light and accommodation. Ears: No lesions. Nose appeared normal. Throat: No exudate or erythema. NECK: Supple. No JVD, no carotid bruit. No lymphadenopathy or thyromegaly. LUNGS: Clear to auscultation. Percussion note normal. Chest symmetrical. HEART: S1, S2, no S3. No murmurs. No cyanosis or clubbing. No ascites. Pulses: Dorsalis pedis and posterior tibial pulses +1 to +2 both sides. ABDOMEN: Soft. Non-tender. Bowel sounds active. No CVA tenderness. No mass felt. EXTREMITIES: No edema. Full range of motion of all extremities, equal. NEUROLOGIC: No focal deficit. Cranial nerves II through XII are grossly intact. No headache, no double vision or headache. SKIN: Warm and dry. Intact. Turgor-normal. LYMPHATIC: No palpable lymph nodes/no lymphedema. MUSCULOSKELETAL: Normal joints with no swelling. Muscle tone is normal. LAB REVIEW: 03/12/20 04:45 03/12/20 04:45 03/12/20 04:45: Sodium 137.7, Potassium 3.87, Chloride 105.5, Carbon Dioxide 25.8, Anion Gap 10.27, BUN 16.1, Creatinine 0.81, Estimated GFR (MDRD) 70.00, BUN/Creatinine Ratio 19.87, Glucose 98.9, Calcium 8.73, Total Bilirubin 0.58, AST 27.9, ALT 12.9, Alkaline Phosphatase 55.6, Total Protein 6.89, Albumin 3.92, Globulin 2.97, Albumin/Globulin Ratio 1.31 03/12/20 04:45: WBC 5.30, RBC 3.68 L, Hgb 9.9 L, Hct 30.2 L, MCV 82.1, MCH 26.9 L, MCHC 32.8, RDW Coeff of Jaclyn 16.6 H, Plt Count 191, Immature Gran % (Auto) 0.4, Neut % (Auto) 37.3 L, Lymph % (Auto) 51.5 H, [place] % (Auto) 9.1, Eos % (Auto) 1.3, Baso % (Auto) 0.4, Neut # (Auto) 2.0, Lymph # (Auto) 2.7, [place] # (Auto) 0.5, Eos # (Auto) 0.1, Baso # (Auto) 0.0, Immature Gran # (Auto) 0.0 03/11/20 18:50: Total Creatine Kinase 78.3, Troponin I < 0.012 03/11/20 11:17: Sodium 138.4, Potassium 2.62 L*, Chloride 97.3 L, Carbon Dioxide 30.2 H, Anion Gap 13.52, BUN 18.7 H, Creatinine 0.89, Estimated GFR (MDRD) 63.00, BUN/Creatinine Ratio 21.01, Glucose 131.3 H, Calcium 9.41, Total Bilirubin 0.97, AST 31.3, ALT 14.9, Alkaline Phosphatase 64.9, Total Creatine Kinase 77.7, Troponin I < 0.012, Total Protein 7.93, Albumin 4.53, Globulin 3.40, Albumin/Globulin Ratio 1.33, TSH 10.900 H 03/11/20 11:17: WBC 5.47, RBC 4.24, Hgb 11.3 L, Hct 34.0 L, MCV 80.2 L, MCH 26.7 L, MCHC 33.2, RDW Coeff of Jaclyn 16.6 H, Plt Count 205, Immature Gran % (Auto) 0.2, Neut % (Auto) 47.5, Lymph % (Auto) 41.5, [place] % (Auto) 9.7, Eos % (Auto) 0.7, Baso % (Auto) 0.4, Neut # (Auto) 2.6, Lymph # (Auto) 2.3, [place] # (Auto) 0.5, Eos # (Auto) 0.0, Baso # (Auto) 0.0, Immature Gran # (Auto) 0.0 03/11/20 11:17: Vitamin B12 > 1000 H, Free T4 1.24 ASSESSMENT: Please see below. 1. Hyperkalemia, resolved 2. Fatigue and shortness of breath combination of inactivity 3. Rheumatoid arthritis 4. Status post right knee replacement with loss of strength and agility 5. Mixed connective tissues disease PLAN: 1. Monitor electrolytes 2. Chronic anemia with hgb 9.9, anemia profile 3. B12 level 4. Echo Plan and coordination of the patient's care discussed in the presence of Human Intelligence and nurse. CONDITION: Stable SCRIBED BY: Mariah CASH scribed while in presence of service performed by Dr. RACHEL BARRON on 03/12/20 ([id number])
--- NOTE | 2020-03-12 10:54 | HP ---
DATE OF SERVICE: 03/11/20 REASON FOR HOSPITALIZATION/HISTORY OF PRESENT ILLNESS: 69 year old female with complaints of short of breath, fatigue and shaking times one week. She has been forgetful at time which is getting worse. No symptoms of CHF/CAD/COVID. PAST MEDICAL HISTORY: Obesity Forgetful-Dementia Rheumatoid arthritis CAD GERD Fibromyalgia Hypothyroidism PAST SURGICAL HISTORY: Right TKR Appendix Coloscopy Heart cath Tubal REVIEW OF SYSTEMS: CONSTITUTIONAL: No fever, Fatigue. HEENT: No sinus drainage, no sore throat. RESPIRATORY: No cough, no congestion. CARDIOVASCULAR: No atypical chest pain for coronary artery disease. No angina, CHF symptoms, palpitations. Shortness of breath with exertion. GASTROINTESTINAL: No melena or abdominal pain. No GERD. GENITOURINARY: No hematuria, no prostatism, no polyuria. FIELD SALES REPRESENTATIVE: No blackout, Dizziness, no headache, no double vision. GAIT: History of falls. MUSCULOSKELETAL: Osteoarthritis pain, no joint swelling. ENDOCRINE: No weight loss, no weight gain. SKIN: Not dry, no rash. PSYCHIATRIC: Anxious, no depression, no suicidal thoughts, no homicidal thoughts. Normal through process. SOCIAL HISTORY: Marital Status: . Alcohol Usage: No. Tobacco Usage: No. FAMILY HISTORY: Father Mother Brother 1 Sister 1 MEDICATIONS: Stool Softener PRN Vitamin daily Fish oil 3 daily Atorvastatin 10mg daily Aspirin 81mg daily Bupropion XL 150mg daily Amitriptyline 25mg at HS Nitrostat 0.4mg PRN Tramadol 50mg Q 6 hours Celebrex 200mg daily Cymbalta 60mg daily Plaquenil 200mg BID Levothyroxine 100mcg daily Protonix 40mg daily Vitamin B ALLERGIES: No known drug allergies PHYSICAL EXAMINATION: V/S: Pulse 84, blood pressure 128/70, temperature 98.1, Oxygen saturation 94%. Height 5'0 GENERAL APPEARANCE: Oriented times three. HEENT: Normal. NECK: No JVP, no bruits. RESPIRATORY: Lungs are clear. CARDIOVASCULAR: S1, S2, no S3, no murmur. No cyanosis, clubbing. No ascites. GI/ABDOMEN: No tenderness. Bowel sounds are active. EXTREMITIES: edema, pulses +1, equal. FIELD SALES REPRESENTATIVE: Deep tendon reflexes, sensory, motor and gait all normal. RECTAL: Dr. Choi 2011 refused repeat./PELVIC. 03/07/19 Mammogram. Colocare- refused. ASSESSMENT: 1. Shortness of breath/fatigue/shaking with history of falls. 2. Rheumatoid arthritis, Dr. Haynes 3. Right total knee replacement Dr. Rodrigues 09/29/2019 4. Mixed connective tissues disease 5. Systemic sclerosis 6. CAD status post cath 02/03, ejection fraction 45% (non-obstructive) 7. Forgetful, early dementia 8. Obesity 9. Status post appendectomy 10. Depression, Controlled 11. Osteopnea, Refuses DEXA 12. Hypothyroidism 13. Fibromyalgia 14. History of B12 deficiency 15. Non-compliance of diet, lifestyle 16. Chronic anemia PLAN: 1. Admit 2. Routine telemetry orders 3. Rapid COVID 4. TSH, T4, B12 Level 5. Mini Mental Status Exam 6. Echo to evaluate LV function/ Shortness of breath 7. Continue Lipitor, Aspirin, Wellbutrin, Amitriptyline, Tramadol, Celebrex, Cymbalta, Plaquenil, Levothyroxine, Protonix. TIME SPENT: More than 70 minutes. MTDD
[2020-03-12 11:32] LABS: ABSOLUTE RETICS # 0.0718; RETICULOCYTE % 1.93 %; RETICULOCYTE HEMOGLOBIN 31.6
[2020-03-12 11:47] LABS: % IRON SATURATION 8 %; TOTAL IRON BINDING CAPACITY 398 ug/dL (261-497)
[2020-03-12 12:15] LABS: FERRITIN 9.58 ng/mL (11.1-264.0)
[2020-03-12 12:46] LABS: FOLATE 9.49 ng/mL
[2020-03-12] MEDS: ROCEPHIN 1 GM/50 ML D5W 1 GM/50 ML BAG IV SCH (14:15)
--- NOTE | 2020-03-12 15:16 | RS.OTINEVL ---
Subjective - Patient information Date of Evaluation: 03/12/20 Date of Arrival on Unit: 03/11/20 Admitted From:: Home Diagnosis: SOA, L Knee pain PRECAUTIONS: Fall precautions Usual Living Arrangement: With Spouse Living Arrangement Comments: WITH SPOUSE Home Environment: House, Stairs (few), Rail Medical History: Hypertension, Dementia, Arthritis Medical History Comments:: GERD, CAD, fibromyalgia, hypothyroidism LATEX ALLERGY?: No Surgical History: Knee Replacement (RTKR 09/2019) Surgical History Comments:: TKA, Medications: see chart Subjective Information/ Patient Comments:: Pt reports she had knee surgery not long ago. Pt reports her helps her. - Level of function Prior to this admission, the patient could do the following:: Partially Dependent Ambulation Abilities prior to this admission: Pt reports that she walks with a RW at home. Pt reports that she is able to mckenzie and doff her briefs independently. Pt reports her helps her with a bath, cooking, driving, and shopping. Current Level of Function: Partially Dependent Comments: After walking over 70 feet patient began to have Bilateral Lower extremity ataxia making it difficult to manage her feet inside the RW and having trouble picking up her feet. Current Equipment Used at Home: shower chair, rolling walker, wheelchair, cane, BSC Pain Assessment - Pain Pain Score: 3 (Face) Side: left Pain Location Body Site: Knee Pain Aggravating Factors: Standing, Walking Pain Alleviating Factors: Position Change, Standing Interventions - Objective Patient Orientation: Person, Place Current Interventions: IV's, Oxygen Observation: Pt appears to have difficulty with the RLE during ambulation and transfers. Pt appears to have difficulty keeping her right foot inside the RW during transfers. Pt often has difficult time getting her foot to move to walk. Pt has impaired safety during transfers and requires assistance for self care. Interventions - ROM Right Upper Extremity AROM: WFL's Left Upper Extremity AROM: WFL's - Strength Right Upper Extremity Strength: Mild Weakness Left Upper Extremity Strength: Mild Weakness Balance - Sitting Balance Static Sitting Balance: Good Dynamic Sitting Balance: Good - Standing Balance Static Standing Balance: Poor Dynamic Standing Balance: Poor ADL Skills - Self Feeding Self Feeding: Independent - Grooming Grooming: Min Assist - Dressing Dressing LE: Min Assist - Toilet Management Toileting Management: CGA Functional Mobility - Bed Mobility Rolling R/L: CGA Scooting: CGA Supine to Sit: Mod Assist Sit to Supine: Mod Assist - Transfers Sit to Stand: CGA Stand to Sit: CGA Stand Pivot Transfers: Mod Assist, Verbal Cues, Tactile Cues (Pt has difficulty responding to a pivot transfer. Pt takes a little longer to process. ) WEST INDEX SCORE: . Additional Treatment Performed - Time with patient Length of Evaluation: 28 Total treatment time: 31 Activities Do you enjoy playing games?: Yes Would you be interested in leaving your room for activities?: Yes Would you enjoy group activities?: Yes Do you have difficulty with your vision?: Yes What types of things do you enjoy doing? Any Hobbies?: Reading books. Patient Education Patient Education: Education of diagnosis, Education of Plan of Care Teaching Recipient: Patient Teaching Methods: Discussion Assessment Problem List:: Decreased level of function, Decreased safety/Risk of falls, Weakness, Pain limits previous level of function Rehab Potential: Fair Further Therapy Indicated?: Yes Evaluation Complexity: HISTORY: Medium, EXAM OF BODY SYSTEMS: Medium, CLINICAL DECISION MAKING: Medium Patient's Goal(s): To be able to go home. Short Term Goals - Goals GOAL 1: Pt to be (I) with donning/doffing brief. Goal to be met by: 03/16/20 GOAL 2: Pt to increase dyn. std. bal. to Fair+ with RW. Goal to be met by: 03/16/20 GOAL 3: Pt to increase to CGA for sink level ADLs. Goal to be met by: 03/16/20 Half-Way Goals GOAL 1: Pt to be (I) with dressing. Goal to be met by: 03/19/20 GOAL 2: Pt to increase toilet transfers to CGA with RW. Goal to be met by: 03/19/20 GOAL 3: Pt to increase activity tolerance to 10 minutes in standing. Goal to be met by: 03/19/20 Plan Plan of Care: Therapeutic EX, Neuromuscular Re-Educ, Therapeutic Activity, Self- Care/Home Management Frequency of Treatment: 1-2 X day, as tolerated Duration of Treatment: 1 Week Anticipated Discharge Destination: Home Treatment Diagnosis (ICD 10 Codes): Z74.1 Need for assistance with personal care, M62.81 Muscle weakness. R27.8 Impaired coordination. Has the Physician been added for Co-signature?: Yes
[2020-03-12] MEDS: CYMBALTA PO SCH (20:11)
[2020-03-12] MEDS: ELAVIL PO SCH (20:11)
[2020-03-12] MEDS: LIPITOR PO SCH (20:11)
[2020-03-12] MEDS: WELLBUTRIN XL PO SCH (20:11)
[2020-03-13 05:33] LABS: BASOPHILS % (AUTO) 0.2 % (0.0-3.0); EOSINOPHILS # (AUTO) 0.1 K/ul (0.0-0.7); EOSINOPHILS % (AUTO) 1.9 % (0.0-7.0); HEMATOCRIT 33.1 % (37.0-47.0); HEMOGLOBIN 10.5 g/dl (12.0-16.0); IMMATURE GRANULOCYTE % (AUTO) 0.2 % (0.0-5.0); LYMPHOCYTES # (AUTO) 2.1 K/uL (0.60-3.4); LYMPHOCYTES % (AUTO) 48.5 (10.0-50.0); MEAN CORPUSCULAR HEMOGLOBIN 26.6 pg (27.0-31.0); MEAN CORPUSCULAR HGB CONC 31.7 (31.8-35.4); MONOCYTES # (AUTO) 0.4 K/uL (0.4-2.0); MONOCYTES % (AUTO) 8.2 (0-10); NEUTROPHILS # (AUTO) 1.8 K/ul (2.0-6.9); PLATELET COUNT 190 10^3/uL (140-440); RDW COEFFICIENT OF VARIATION 16.8 % (11.6-14.8); RED BLOOD COUNT 3.94 10^6/ul (4.20-5.40); WHITE BLOOD COUNT 4.27 K/ul (4.6-10.2)
[2020-03-13 05:46] LABS: ALANINE AMINOTRANSFERASE 12.1 U/L (0-35); ALBUMIN 3.87 g/dL (3.5-5.0); ASPARTATE AMINO TRANSFERASE 28.2 U/L (14-36); BILIRUBIN,TOTAL 0.5 mg/dL (0.2-1.3); BLOOD UREA NITROGEN 12.4 mg/dL (7-17); CALCIUM 9.08 mg/dL (8.4-10.2); CARBON DIOXIDE 24.4 mmol/L (22-30.0); CHLORIDE 106.3 mmol/L (98-107); CREATININE 0.75 mg/dL (0.60-1.30); GLUCOSE 93.3 mg/dL (74-106); POTASSIUM 3.7 mmol/L (3.5-5.1); SODIUM 138.3 mmol/L (134.5-145); TOTAL PROTEIN 6.87 g/dL (6.3-8.2)
[2020-03-13] MEDS: PROTONIX PO SCH (05:55)
[2020-03-13] MEDS: SYNTHROID PO SCH (05:55)
[2020-03-13] MEDS ORDERED: SYNTHROID PO SCH (06:30)
[2020-03-13] MEDS: ROCEPHIN 1 GM/50 ML D5W 1 GM/50 ML BAG IV SCH (09:06)
[2020-03-13] MEDS: ULTRAM PO SCH ×4 (09:06→20:39)
[2020-03-13] MEDS: CELEBREX PO SCH (09:06)
[2020-03-13] MEDS: ASPIRIN CHEWABLE PO SCH (09:06)
[2020-03-13] MEDS: K-DUR PO SCH (09:06)
[2020-03-13] MEDS: PLAQUENIL PO SCH ×2 (09:06→17:10)
[2020-03-13] MEDS: [UNRECOGNIZED DRUG - MIXTURE] IV SCH ×4 (11:18→23:17)
[2020-03-13] MEDS: CYMBALTA PO SCH (20:39)
[2020-03-13] MEDS: ELAVIL PO SCH (20:39)
[2020-03-13] MEDS: LIPITOR PO SCH (20:39)
[2020-03-13] MEDS: WELLBUTRIN XL PO SCH (20:39)
[2020-03-13] MEDS ORDERED: POTASSIUM CHLORIDE 10 MEQ VIAL- ADDITIVE ONLY IV ONE (23:13)
[2020-03-14 05:33] LABS: BASOPHILS % (AUTO) 0.4 % (0.0-3.0); EOSINOPHILS # (AUTO) 0.1 K/ul (0.0-0.7); EOSINOPHILS % (AUTO) 1.9 % (0.0-7.0); HEMATOCRIT 30.1 % (37.0-47.0); HEMOGLOBIN 9.8 g/dl (12.0-16.0); IMMATURE GRANULOCYTE % (AUTO) 0.2 % (0.0-5.0); LYMPHOCYTES % (AUTO) 42.1 (10.0-50.0); MEAN CORPUSCULAR HEMOGLOBIN 26.6 pg (27.0-31.0); MEAN CORPUSCULAR HGB CONC 32.6 (31.8-35.4); MEAN CORPUSCULAR VOLUME 81.8 fl (81.0-99.0); MONOCYTES # (AUTO) 0.4 K/uL (0.4-2.0); MONOCYTES % (AUTO) 8.8 (0-10); NEUTROPHILS # (AUTO) 2.2 K/ul (2.0-6.9); NEUTROPHILS % (AUTO) 46.6 % (42.2-75.2); PLATELET COUNT 191 10^3/uL (140-440); RDW COEFFICIENT OF VARIATION 16.8 % (11.6-14.8); RED BLOOD COUNT 3.68 10^6/ul (4.20-5.40); WHITE BLOOD COUNT 4.77 K/ul (4.6-10.2)
[2020-03-14 05:48] LABS: ALANINE AMINOTRANSFERASE 11.9 U/L (0-35); ALBUMIN 3.72 g/dL (3.5-5.0); ALKALINE PHOSPHATASE 53.1 U/L (53-141); ASPARTATE AMINO TRANSFERASE 27.8 U/L (14-36); BILIRUBIN,TOTAL 0.37 mg/dL (0.2-1.3); BLOOD UREA NITROGEN 9.9 mg/dL (7-17); CALCIUM 8.83 mg/dL (8.4-10.2); CARBON DIOXIDE 25.4 mmol/L (22-30.0); CHLORIDE 108.1 mmol/L (98-107); CREATININE 0.72 mg/dL (0.60-1.30); GLUCOSE 101.3 mg/dL (74-106); POTASSIUM 4.53 mmol/L (3.5-5.1); TOTAL PROTEIN 6.67 g/dL (6.3-8.2)
[2020-03-14] MEDS: SYNTHROID PO SCH (06:16)
[2020-03-14] MEDS: PROTONIX PO SCH (06:17)
[2020-03-14] MEDS: PLAQUENIL PO SCH ×2 (09:30→17:21)
[2020-03-14] MEDS: CELEBREX PO SCH (09:30)
[2020-03-14] MEDS: K-DUR PO SCH (09:30)
[2020-03-14] MEDS: ROCEPHIN 1 GM/50 ML D5W 1 GM/50 ML BAG IV SCH (09:33)
[2020-03-14] MEDS: ASPIRIN CHEWABLE PO SCH (09:33)
[2020-03-14] MEDS: ULTRAM PO SCH ×4 (09:34→20:18)
[2020-03-14] MEDS: [UNRECOGNIZED DRUG - MIXTURE] IV SCH (16:10)
[2020-03-14] MEDS: WELLBUTRIN XL PO SCH (20:18)
[2020-03-14] MEDS: ELAVIL PO SCH (20:18)
[2020-03-14] MEDS: LIPITOR PO SCH (20:18)
[2020-03-14] MEDS: CYMBALTA PO SCH (20:18)
[2020-03-15] MEDS: SYNTHROID PO SCH (05:47)
[2020-03-15] MEDS: PROTONIX PO SCH (05:47)
[2020-03-15 05:48] LABS: BASOPHILS % (AUTO) 0.4 % (0.0-3.0); EOSINOPHILS # (AUTO) 0.2 K/ul (0.0-0.7); EOSINOPHILS % (AUTO) 2.8 % (0.0-7.0); HEMATOCRIT 29.4 % (37.0-47.0); HEMOGLOBIN 9.7 g/dl (12.0-16.0); IMMATURE GRANULOCYTE % (AUTO) 0.2 % (0.0-5.0); LYMPHOCYTES # (AUTO) 2.4 K/uL (0.60-3.4); LYMPHOCYTES % (AUTO) 44.4 (10.0-50.0); MEAN CORPUSCULAR HEMOGLOBIN 26.6 pg (27.0-31.0); MEAN CORPUSCULAR VOLUME 80.5 fl (81.0-99.0); MONOCYTES # (AUTO) 0.6 K/uL (0.4-2.0); MONOCYTES % (AUTO) 11.3 (0-10); NEUTROPHILS # (AUTO) 2.2 K/ul (2.0-6.9); NEUTROPHILS % (AUTO) 40.9 % (42.2-75.2); PLATELET COUNT 193 10^3/uL (140-440); RDW COEFFICIENT OF VARIATION 16.8 % (11.6-14.8); RED BLOOD COUNT 3.65 10^6/ul (4.20-5.40); WHITE BLOOD COUNT 5.32 K/ul (4.6-10.2)
[2020-03-15 06:04] LABS: ALANINE AMINOTRANSFERASE 12.9 U/L (0-35); ALBUMIN 3.84 g/dL (3.5-5.0); ALKALINE PHOSPHATASE 50.7 U/L (53-141); ASPARTATE AMINO TRANSFERASE 27.3 U/L (14-36); BILIRUBIN,TOTAL 0.39 mg/dL (0.2-1.3); BLOOD UREA NITROGEN 13.9 mg/dL (7-17); CALCIUM 9.14 mg/dL (8.4-10.2); CARBON DIOXIDE 24.6 mmol/L (22-30.0); CHLORIDE 102.7 mmol/L (98-107); CREATININE 0.77 mg/dL (0.60-1.30); GLUCOSE 126.4 mg/dL (74-106); POTASSIUM 4.18 mmol/L (3.5-5.1); TOTAL PROTEIN 6.87 g/dL (6.3-8.2)
[2020-03-15] MEDS: ASPIRIN CHEWABLE PO SCH (08:48)
[2020-03-15] MEDS: K-DUR PO SCH (08:48)
[2020-03-15] MEDS: KEFLEX PO SCH ×3 (08:48→20:14)
[2020-03-15] MEDS: PLAQUENIL PO SCH ×2 (08:48→16:02)
[2020-03-15] MEDS: FERROUS SULFATE PO SCH ×2 (08:48→20:14)
[2020-03-15] MEDS: ULTRAM PO SCH ×4 (08:48→20:14)
[2020-03-15] MEDS: CELEBREX PO SCH (08:49)
--- NOTE | 2020-03-15 08:54 | PCM.PROG ---
Attending Provider: ATTENDING PROVIDER: Dr. RACHEL BARRON This patient is seen with Katy Shankar, Nurse Practitioner. DATE OF SERVICE: 03/15/20 SUBJECTIVE: This 69 year old /WHITE F was hospitalized 03/11/20. The patient is resting comfortably in bed. No fever. Will start on iron today. The patient is still requiring assistance with getting up. She is incontinent. REVIEW OF SYSTEMS: CONSTITUTIONAL: Weakness. No night sweats. No fatigue, malaise, lethargy. No fev er or chills. HEENT: Eyes: No visual changes. No eye pain. No eye discharge. ENT: No runny nose. No epistaxis. No sinus pain. No odynophagia. No congestion. RESPIRATORY: No cough, no congestion. No hemoptysis. No shortness of breath. CARDIOVASCULAR: No angina symptoms. No CHF symptoms. No atypical chest pain for CAD. No palpitations. No orthopnea.. GASTROINTESTINAL: No abdominal pain. No nausea or vomiting. No diarrhea or constipation. No hematemesis. No hematochezia. GENITOURINARY: Incontinence. MUSCULOSKELETAL: No musculoskeletal pain; no joint swelling. NEUROLOGICAL: Awake, alert, oriented to time, place and person. No headache. No neck pain. No syncope. No seizures. No dizziness. PSYCHIATRIC: Not anxious. No depression. No suicidal thoughts. No homicidal thoughts. SKIN: No rash. No lesions. No wounds. ENDOCRINE: No unexplained weight loss. No weight gain. HEMATOLOGIC/LYMPHATIC: No anemia. No purpura. No petechiae. No prolonged or excessive bleeding. No palpable lymph nodes. PHYSICAL EXAMINATION: GENERAL: The patient is awake, alert and oriented, lying/sitting in bed in no distress. VITAL SIGNS: Temperature 97.6 F, Pulse 75, Respiratory Rate 18, BP 143/70, Pulse Ox 97% HEENT: Head normocephalic, atraumatic. Eyes: Extraocular muscles are intact. Pupils are equal, round and reactive to light and accommodation. Ears: No lesions. Nose appeared normal. Throat: No exudate or erythema. NECK: Supple. No JVD, no carotid bruit. No lymphadenopathy or thyromegaly. LUNGS: Diminished breath sounds. Clear to auscultation. Percussion note rebekah l. Chest symmetrical. HEART: S1, S2, no S3. No murmurs. No cyanosis or clubbing. No ascites. P ulses: Dorsalis pedis and posterior tibial pulses +1 to +2 both sides. ABDOMEN: Soft. Non-tender. Bowel sounds active. No CVA tenderness. No mass felt. EXTREMITIES: No edema. Full range of motion of all extremities, equal. NEUROLOGIC: No focal deficit. Cranial nerves II through XII are grossly intact. No headache, no double vision or headache. SKIN: Not dry. Intact. Turgor-normal. LYMPHATIC: No palpable lymph nodes/no lymphedema. MUSCULOSKELETAL: Normal joints with no swelling. Muscle tone is normal. LAB REVIEW: 03/15/20 05:40 03/15/20 05:40 03/15/20 05:40: Sodium 136.0, Potassium 4.18, Chloride 102.7, Carbon Dioxide 24.6, Anion Gap 12.88, BUN 13.9, Creatinine 0.77, Estimated GFR (MDRD) 75.00, BUN/Creatinine Ratio 18.05, Glucose 126.4 H, Calcium 9.14, Total Bilirubin 0.39, AST 27.3, ALT 12.9, Alkaline Phosphatase 50.7 L, Total Protein 6.87, Albumin 3.84, Globulin 3.03, Albumin/Globulin Ratio 1.26 03/15/20 05:40: WBC 5.32, RBC 3.65 L, Hgb 9.7 L, Hct 29.4 L, MCV 80.5 L, MCH 2 6.6 L, MCHC 33.0, RDW Coeff of Jaclyn 16.8 H, Plt Count 193, Immature Gran % (Auto) 0.2, Neut % (Auto) 40.9 L, Lymph % (Auto) 44.4, [place] % (Auto) 11.3 H, Eos % (Auto) 2.8, Baso % (Auto) 0.4, Neut # (Auto) 2.2, Lymph # (Auto) 2.4, [place] # (Auto) 0.6, Eos # (Auto) 0.2, Baso # (Auto) 0.0, Immature Gran # (Auto) 0.0 ASSESSMENT: Please see below. 1. UTI, E.coli. 2. Anemia. 3. Hypokalemia, resolved. 4. Fatigue and shortness of breath, a combination of inactivity. 5. Rheumatoid arthritis. 6. Status post right knee replacement with loss of strength and agility. 7. Mixed connective tissues disease. PLAN: 1. Iron 325 mg b.i.d. 2. D/C Celebrex. Plan and coordination of the patient's care discussed in the presence of Metallurgical Tester and nurse. CONDITION: Stable SCRIBED BY: SRAVANI JOHNSON Food Adviser scribed while in presence of service performed by Dr. Barron/Katy Shankar APRN on 03/15/20 ([id number])
--- NOTE | 2020-03-15 13:58 | PN ---
DATE OF SERVICE: 03/14/20 SUBJECTIVE: 69-year-old white female hospitalized with shortness of breath and fatigue. The patient is Covid negative. The patient had severe hypokalemia which has resolved. She has E.coli urinary tract infection sensitive to Cephalosporin, treated with Rocephin. REVIEW OF SYSTEMS: CONSTITUTIONAL: No night sweats. No fatigue, malaise, lethargy. No fever or chills. HEENT: Eyes: No visual changes. No eye pain. No eye discharge. ENT: No runny nose. No epistaxis. No sinus pain. No sore throat. No odynophagia. No congestion. RESPIRATORY: No cough, no congestion. No hemoptysis. No shortness of breath. CARDIOVASCULAR: No angina symptoms. No CHF symptoms. No atypical chest pain for CAD. No palpitations. No PND. No orthopnea. GASTROINTESTINAL: Appetite has improved. No abdominal pain. No nausea or vomiting. No diarrhea or constipation. No hematemesis. No hematochezia. GENITOURINARY: No urgency. No frequency. No dysuria. No hematuria. No obstructive symptoms. No discharge. No pain. No significant abnormal bleeding. MUSCULOSKELETAL: No musculoskeletal pain; no joint swelling. NEUROLOGICAL: No headache. No neck pain. No syncope. No seizures. No dizziness. PSYCHIATRIC: Not anxious. No depression. No suicidal thoughts. No homicidal thoughts. SKIN: No rash. No lesions. No wounds. ENDOCRINE: No unexplained weight loss. No weight gain. HEMATOLOGIC/LYMPHATIC: No anemia. No purpura. No petechiae. No prolonged or excessive bleeding. No palpable lymph nodes. PHYSICAL EXAMINATION: GENERAL: The patient has been walking, more alert. VITAL SIGNS: Temperature 98.5, pulse 73, respiratory rate 16, blood pressure 118/69, pulse ox 97% on room air. HEENT: Head normocephalic, atraumatic. Eyes: Extraocular muscles are intact. Pupils are equal, round and reactive to light and accommodation. Ears: No lesions. Nose appeared normal. Throat: No exudate or erythema. NECK: Supple. No JVD, no carotid bruit. No lymphadenopathy or thyromegaly. LUNGS: Decreased breath sounds but clear to auscultation. Percussion note normal. Chest symmetrical. HEART: S1, S2, no S3. No murmurs. No cyanosis or clubbing. No ascites. Pulses: Dorsalis pedis and posterior tibial pulses +1 to +2 bilaterally. ABDOMEN: Soft. Nontender. Bowel sounds active. No CVA tenderness. No mass felt. EXTREMITIES: No edema. Full range of motion of all extremities, equal. NEUROLOGIC: No focal deficit. Cranial nerves II through XII are grossly intact. No headache, no double vision or headache. SKIN: Not dry. Intact. Turgor - normal. LYMPHATIC: No palpable lymph nodes/no lymphedema. MUSCULOSKELETAL: Normal joints with no swelling. Muscle tone is normal. LABS: Hemoglobin 9.8, hematocrit 30, WBC 4,700, normal differential. Creatinine 0.7, BUN 9, potassium 4.5. ASSESSMENT: 1. Hypokalemia resolved. 2. E. coli urinary tract infection resolving. 3. Generalized osteoarthritis. 4. Right knee replacement. 5. Rheumatoid arthritis. 6. Hypothyroidism. PLAN: 1. Continue antibiotics. 2. Potassium supplement in the morning. 3. Continue Synthroid. 4. Advised to walk approximately 1/2 mile a day. CONDITION: Stable. TIME SPENT: More than 30 minutes. Plan and coordination of the patient's care discussed in the presence of nurse. JULIANN
--- NOTE | 2020-03-15 14:08 | PN ---
DATE OF SERVICE: 03/13/20 SUBJECTIVE: 69-year-old white female hospitalized with shortness of breath, fatigue, tired feeling. The patient has been somewhat forgetful, now has urinary tract infection. Culture sensitivity pending. The patient is on Rocephin, has severe hypokalemia which has resolved. Now potassium is 3.7. REVIEW OF SYSTEMS: GENERAL: The patient is feeling comfortable, not much pain. CONSTITUTIONAL: No night sweats. No fatigue, malaise, lethargy. No fever or chills. HEENT: Eyes: No visual changes. No eye pain. No eye discharge. ENT: No runny nose. No epistaxis. No sinus pain. No sore throat. No odynophagia. No congestion. RESPIRATORY: No cough, no congestion. No hemoptysis. No shortness of breath. CARDIOVASCULAR: No angina symptoms. No CHF symptoms. No atypical chest pain for CAD. No palpitations. No PND. No orthopnea. GASTROINTESTINAL: No abdominal pain. No nausea or vomiting. No diarrhea or constipation. No hematemesis. No hematochezia. GENITOURINARY: No urgency. No frequency. No dysuria. No hematuria. No obstructive symptoms. No discharge. No pain. No significant abnormal bleeding. MUSCULOSKELETAL: No musculoskeletal pain; no joint swelling. NEUROLOGICAL: No headache. No neck pain. No syncope. No seizures. No dizziness. PSYCHIATRIC: Not anxious. No depression. No suicidal thoughts. No homicidal thoughts. SKIN: No rash. No lesions. No wounds. ENDOCRINE: No unexplained weight loss. No weight gain. HEMATOLOGIC/LYMPHATIC: No anemia. No purpura. No petechiae. No prolonged or excessive bleeding. No palpable lymph nodes. PHYSICAL EXAMINATION: VITAL SIGNS: Temperature 98.5, pulse 70, respiratory rate 20, blood pressure 134/60, pulse ox 97%. HEENT: Head normocephalic, atraumatic. Eyes: Extraocular muscles are intact. Pupils are equal, round and reactive to light and accommodation. Ears: No lesions. Nose appeared normal. Throat: No exudate or erythema. NECK: Supple. No JVD, no carotid bruit. No lymphadenopathy or thyromegaly. LUNGS: Clear to auscultation. Percussion note normal. Chest symmetrical. HEART: S1, S2, no S3. No murmurs. No cyanosis or clubbing. No ascites. Pulses: Dorsalis pedis and posterior tibial pulses +1 to +2 bilaterally. ABDOMEN: Soft. Nontender. Bowel sounds active. No CVA tenderness. No mass felt. EXTREMITIES: No edema. Full range of motion of all extremities, equal. NEUROLOGIC: No focal deficit. Cranial nerves II through XII are grossly intact. No headache, no double vision or headache. SKIN: Not dry. Intact. Turgor - normal. LYMPHATIC: No palpable lymph nodes/no lymphedema. MUSCULOSKELETAL: Normal joints with no swelling. Muscle tone is normal. LABS: Hemoglobin 10.5, hematocrit 33, WBC 4,200, normal differential. Creatinine 0.7, BUN 12, potassium 3.7. ASSESSMENT: 1. UTI seems to be under control. No fever, no chills. Appetite has improved. The patient is more alert. 2. Hypokalemia has resolved. Potassium 3.7. 3. Generalized osteoarthritis. 4. Rheumatoid arthritis. She is able to walk, today outside. She is feeling a lot better. PLAN: 1. Continue to monitor potassium. 2. Continue antibiotics. The patient is improving and condition is stable. Of note, the patient has hypothyroidism with TSH 10.9. The dose of Synthroid has been increased. TIME SPENT: More than 30 minutes. Plan and coordination of the patient's care discussed in the presence of nurse. JULIANN
[2020-03-15] MEDS: CYMBALTA PO SCH (20:14)
[2020-03-15] MEDS: ELAVIL PO SCH (20:14)
[2020-03-15] MEDS: WELLBUTRIN XL PO SCH (20:14)
[2020-03-15] MEDS: LIPITOR PO SCH (20:15)
[2020-03-16 05:09] LABS: BASOPHILS % (AUTO) 0.5 % (0.0-3.0); EOSINOPHILS # (AUTO) 0.1 K/ul (0.0-0.7); EOSINOPHILS % (AUTO) 2.1 % (0.0-7.0); HEMATOCRIT 32.7 % (37.0-47.0); HEMOGLOBIN 10.9 g/dl (12.0-16.0); IMMATURE GRANULOCYTE % (AUTO) 0.5 % (0.0-5.0); LYMPHOCYTES # (AUTO) 2.7 K/uL (0.60-3.4); LYMPHOCYTES % (AUTO) 46.7 (10.0-50.0); MEAN CORPUSCULAR HEMOGLOBIN 26.7 pg (27.0-31.0); MEAN CORPUSCULAR HGB CONC 33.3 (31.8-35.4); MONOCYTES # (AUTO) 0.5 K/uL (0.4-2.0); MONOCYTES % (AUTO) 8.5 (0-10); NEUTROPHILS # (AUTO) 2.4 K/ul (2.0-6.9); NEUTROPHILS % (AUTO) 41.7 % (42.2-75.2); PLATELET COUNT 220 10^3/uL (140-440); RDW COEFFICIENT OF VARIATION 16.8 % (11.6-14.8); RED BLOOD COUNT 4.09 10^6/ul (4.20-5.40); WHITE BLOOD COUNT 5.78 K/ul (4.6-10.2)
[2020-03-16 05:20] LABS: ALANINE AMINOTRANSFERASE 13.8 U/L (0-35); ALBUMIN 4.31 g/dL (3.5-5.0); ALKALINE PHOSPHATASE 61.8 U/L (53-141); ASPARTATE AMINO TRANSFERASE 30.2 U/L (14-36); BILIRUBIN,TOTAL 0.58 mg/dL (0.2-1.3); BLOOD UREA NITROGEN 17.8 mg/dL (7-17); CALCIUM 9.48 mg/dL (8.4-10.2); CARBON DIOXIDE 23.6 mmol/L (22-30.0); CHLORIDE 100.9 mmol/L (98-107); CREATININE 0.76 mg/dL (0.60-1.30); GLUCOSE 109.3 mg/dL (74-106); POTASSIUM 4.35 mmol/L (3.5-5.1); TOTAL PROTEIN 7.61 g/dL (6.3-8.2)
[2020-03-16] MEDS: PROTONIX PO SCH (05:33)
[2020-03-16] MEDS: SYNTHROID PO SCH (05:33)
[2020-03-16] MEDS: ASPIRIN CHEWABLE PO SCH (08:58)
[2020-03-16] MEDS: FERROUS SULFATE PO SCH ×2 (08:58→20:22)
[2020-03-16] MEDS: PLAQUENIL PO SCH ×2 (08:58→17:05)
[2020-03-16] MEDS: ULTRAM PO SCH ×4 (08:58→20:22)
[2020-03-16] MEDS: KEFLEX PO SCH ×3 (08:58→20:22)
[2020-03-16] MEDS: K-DUR PO SCH (08:58)
--- NOTE | 2020-03-16 09:03 | PCM.PROG ---
Attending Provider: ATTENDING PROVIDER: Dr. RACHEL BARRON This patient is seen with Katy Shankar, Nurse Practitioner. DATE OF SERVICE: 03/16/20 SUBJECTIVE: This 69 year old /WHITE F was hospitalized 03/11/20. The patient is resting comfortably. We are awaiting ok from [place]. Plan is to discharge today or tomorrow. REVIEW OF SYSTEMS: CONSTITUTIONAL: Weakness. No night sweats. No fatigue, malaise, lethargy. No fever or chills. HEENT: Eyes: No visual changes. No eye pain. No eye discharge. ENT: No runny nose. No epistaxis. No sinus pain. No odynophagia. No congestion. RESPIRATORY: No cough, no congestion. No hemoptysis. No shortness of breath. CARDIOVASCULAR: No angina symptoms. No CHF symptoms. No atypical chest pain for CAD. No palpitations. No orthopnea.. GASTROINTESTINAL: No abdominal pain. No nausea or vomiting. No diarrhea or constipation. No hematemesis. No hematochezia. GENITOURINARY: No urgency. No frequency. No dysuria. No hematuria. No obstruc tive symptoms. No discharge. No pain. No significant abnormal bleeding. MUSCULOSKELETAL: No musculoskeletal pain; no joint swelling. NEUROLOGICAL: Awake, alert, oriented to time, place and person. No headache. No neck pain. No syncope. No seizures. No dizziness. PSYCHIATRIC: Not anxious. No depression. No suicidal thoughts. No homicidal thoughts. SKIN: No rash. No lesions. No wounds. ENDOCRINE: No unexplained weight loss. No weight gain. HEMATOLOGIC/LYMPHATIC: No anemia. No purpura. No petechiae. No prolonged or excessive bleeding. No palpable lymph nodes. PHYSICAL EXAMINATION: GENERAL: The patient is awake, alert and oriented, lying/sitting in bed in no distress. VITAL SIGNS: Temperature 97.7 F, Pulse 79, Respiratory Rate 18, BP 109/68, Pulse Ox 98% HEENT: Head normocephalic, atraumatic. Eyes: Extraocular muscles are intact. Pupils are equal, round and reactive to light and accommodation. Ears: No lesions. Nose appeared normal. Throat: No exudate or erythema. NECK: Supple. No JVD, no carotid bruit. No lymphadenopathy or thyromegaly. LUNGS: Diminished breath sounds. Clear to auscultation. Percussion note normal. Chest symmetrical. HEART: S1, S2, no S3. No murmurs. No cyanosis or clubbing. No ascites. Pulses: Dorsalis pedis and posterior tibial pulses +1 to +2 both sides. ABDOMEN: Soft. Non-tender. Bowel sounds active. No CVA tenderness. No mass felt. EXTREMITIES: No edema. Full range of motion of all extremities, equal. NEUROLOGIC: No focal deficit. Cranial nerves II through XII are grossly intact. No headache, no double vision or headache. SKIN: Not dry. Intact. Turgor-normal. LYMPHATIC: No palpable lymph nodes/no lymphedema. MUSCULOSKELETAL: Normal joints with no swelling. Muscle tone is normal. LAB REVIEW: 03/16/20 04:50 03/16/20 04:50 03/16/20 04:50: Sodium 135.0, Potassium 4.35, Chloride 100.9, Carbon Dioxide 23.6, Anion Gap 14.85, BUN 17.8 H, Creatinine 0.76, Estimated GFR (MDRD) 76.00, BUN/Creatinine Ratio 23.42, Glucose 109.3 H, Calcium 9.48, Total Bilirubin 0.58, AST 30.2, ALT 13.8, Alkaline Phosphatase 61.8, Total Protein 7.61, Albumin 4.31, Globulin 3.30, Albumin/Globulin Ratio 1.30 03/16/20 04:50: WBC 5.78, RBC 4.09 L, Hgb 10.9 L, Hct 32.7 L, MCV 80.0 L, MCH 26.7 L, MCHC 33.3, RDW Coeff of Jaclyn 16.8 H, Plt Count 220, Immature Gran % (Auto) 0.5, Neut % (Auto) 41.7 L, Lymph % (Auto) 46.7, [place] % (Auto) 8.5, Eos % (Auto) 2.1, Baso % (Auto) 0.5, Neut # (Auto) 2.4, Lymph # (Auto) 2.7, [place] # (Auto) 0.5, Eos # (Auto) 0.1, Baso # (Auto) 0.0, Immature Gran # (Auto) 0.0 ASSESSMENT: Please see below. 1. UTI, E.coli. 2. Anemia. 3. Hypokalemia, resolved. 4. Fatigue and shortness of breath, a combination of inactivity. 5. Rheumatoid arthritis. 6. Status post right knee replacement with loss of strength and agility. 7. Mixed connective tissues disease. PLAN: 1. Covid test pending. 2. Attempt to discharge to [place] today. 3. Continue Keflex for 7 days. Plan and coordination of the patient's care discussed in the presence of Video Game Animator and nurse. CONDITION: Stable SCRIBED BY: SRAVANI JOHNSON Typewriter Assembly And Parts Inspector scribed while in presence of service performed by Dr. Barron/Katy Shankar APRN on 03/16/20 ([id number])
--- NOTE | 2020-03-16 14:24 | ECHO2D ---
Date of Exam: 03/16/2020 Ordering Physician: DR. RACHEL BARRON Room #: 102 Reason for Echo: SOB, EVALUATE LV FUNCTION M-Mode Normal Adult Results LV Dimensions Normal Adult Results AoV Opening excursions >1.6 >1.6 LVEDD-base- 3.5-5.8 4.6 Ao root dimensions 2.0-3.7 3.1 LVESD-base- 3.1-4.6 L. Atrium dimensions 1.9-3.8 3.7 Post. Wall thickness 0.8-1.1 1.2 IV septum (thickness) 0.7-1.2 1.2 Post. Wall excursion 0.72-1.3 NORMAL Septal motion NORMAL Systolic motion R. Ventricular cavity 1.5-2.0 NORMAL LVEF 60% 61% Paradoxical septal wall motion NORMAL 2-D : 2-D M Mode Echocardiogram was performed using apical four chamber and left parasternal long and short axis views. Mitral, tricuspid and aortic valves appear to be normal. Contractility of the left ventricle seems to be normal, so is the cavity size. Left atrial cavity size and aortic root appear to be normal. There is no pericardial effusion. There is no thrombus noted in the left ventricle or left atrial cavity. No mitral valve prolapse noted. M-MODE: MV: NORMAL AV: NORMAL TV: NORMAL PV: CHAMBER SIZE: NORMAL WALL MOTION: NORMAL PERICARDIUM: NORMAL INTERPRETATION: 1. BORDERLINE LEFT VENTRICULAR HYPERTROPHY 2. NORMAL LEFT VENTRICLE CONTRACTILITY 3. NORMAL VALVES MTDD
[2020-03-16] MEDS: WELLBUTRIN XL PO SCH (20:22)
[2020-03-16] MEDS: LIPITOR PO SCH (20:22)
[2020-03-16] MEDS: CYMBALTA PO SCH (20:22)
[2020-03-16] MEDS: ELAVIL PO SCH (20:22)
[2020-03-17 05:50] LABS: BASOPHILS % (AUTO) 0.6 % (0.0-3.0); EOSINOPHILS # (AUTO) 0.1 K/ul (0.0-0.7); EOSINOPHILS % (AUTO) 1.7 % (0.0-7.0); HEMATOCRIT 31.9 % (37.0-47.0); HEMOGLOBIN 10.5 g/dl (12.0-16.0); IMMATURE GRANULOCYTE % (AUTO) 0.4 % (0.0-5.0); LYMPHOCYTES # (AUTO) 2.8 K/uL (0.60-3.4); LYMPHOCYTES % (AUTO) 52.1 (10.0-50.0); MEAN CORPUSCULAR HEMOGLOBIN 26.4 pg (27.0-31.0); MEAN CORPUSCULAR HGB CONC 32.9 (31.8-35.4); MEAN CORPUSCULAR VOLUME 80.4 fl (81.0-99.0); MONOCYTES # (AUTO) 0.6 K/uL (0.4-2.0); MONOCYTES % (AUTO) 10.5 (0-10); NEUTROPHILS # (AUTO) 1.9 K/ul (2.0-6.9); NEUTROPHILS % (AUTO) 34.7 % (42.2-75.2); PLATELET COUNT 214 10^3/uL (140-440); RED BLOOD COUNT 3.97 10^6/ul (4.20-5.40); WHITE BLOOD COUNT 5.43 K/ul (4.6-10.2)
[2020-03-17] MEDS: PROTONIX PO SCH (05:53)
[2020-03-17] MEDS: SYNTHROID PO SCH (05:53)
[2020-03-17 05:57] LABS: ALANINE AMINOTRANSFERASE 13.7 U/L (0-35); ALBUMIN 4.22 g/dL (3.5-5.0); ALKALINE PHOSPHATASE 60.7 U/L (53-141); ASPARTATE AMINO TRANSFERASE 30.2 U/L (14-36); BILIRUBIN,TOTAL 0.48 mg/dL (0.2-1.3); BLOOD UREA NITROGEN 20.1 mg/dL (7-17); CALCIUM 9.47 mg/dL (8.4-10.2); CARBON DIOXIDE 26.8 mmol/L (22-30.0); CHLORIDE 100.3 mmol/L (98-107); CREATININE 0.93 mg/dL (0.60-1.30); GLUCOSE 100.6 mg/dL (74-106); POTASSIUM 4.11 mmol/L (3.5-5.1); SODIUM 136.1 mmol/L (134.5-145); TOTAL PROTEIN 7.34 g/dL (6.3-8.2)
[2020-03-17] MEDS: PLAQUENIL PO SCH (08:34)
[2020-03-17] MEDS: K-DUR PO SCH (08:34)
[2020-03-17] MEDS: ASPIRIN CHEWABLE PO SCH (08:34)
[2020-03-17] MEDS: KEFLEX PO SCH ×2 (08:35→16:02)
[2020-03-17] MEDS: ULTRAM PO SCH ×2 (08:35→13:30)
[2020-03-17] MEDS: FERROUS SULFATE PO SCH (08:35)
--- NOTE | 2020-03-17 10:03 | PN ---
DATE OF SERVICE: 03/16/2020 SUBJECTIVE: The patient was seen and examined with the Nurse Practitioner. The patient's condition is stable. Her echo showed normal LV contractility and borderline LVH. Normal LA cavity and normal valves. She is going to be discharged home today. UTI and hypokalemia resolved. Generalized osteoarthritis with arthritis persists. She is going to the group home. TIME SPENT: More than 30 minutes. Plan and coordination of the patient's care discussed in the presence of nurse. JULIANN
--- NOTE | 2020-03-17 10:04 | PN ---
03/11/20: Level 5 03/12/20: Intermediate 03/13/20: Intermediate 03/14/20: Intermediate 03/15/20: Intermediate 03/16/20: D discharge MTDD
--- NOTE | 2020-03-17 10:06 | PN ---
DATE OF SERVICE: 03/15/2020 SUBJECTIVE: The patient was seen and examined with the Nurse Practitioner. The patient's condition is stable, improving. Hypokalemia has resolved. Urinary tract infection is under control. Severe generalized osteoarthritis with rheumatoid arthritis. She is followed by Senior Quality Engineer. The [facility]. She will have an echocardiogram done before discharge. CONDITION: Stable. TIME SPENT: More than 30 minutes. Plan and coordination of the patient's care discussed in the presence of nurse. JULIANN
[2020-03-17 15:10] VITALS: BP 126/68; TEMP 98
--- NOTE | 2020-03-19 12:50 | CM.DICTOOL ---
ADMISSION: 03/11/20 10:34 DISCHARGE: MARCH 17, 2020 DATE OF SERVICE: 03/10/20 FINAL DIAGNOSIS UTI, E- COLI* HYPOKALEMIA, RESOLVED* SHORTNESS OF BREATH/ FATIGUE/ SHAKING WITH HISTORY OF FALLS/COMBINATION OF INACTIVITY RHEUMATOID ARTHRITIS - DR. MONTEIRO STATUS POST RIGHT KNEE REPLACEMENT WITH LOSS OF STRENGTH AND AGILITY MIXED CONNECTIVE TISSUES DISEASE CHRONIC ANEMIA HX: SYSTEMATIC SCLEROSIS CAD S/P CATH 01/2016 EF 45% ( NON-OBSTRUCTIVE) FORGETFUL/EARLY DEMENTIA OBESITY GERD DEPRESSION OSTEOPENIA - REFUSES DEXA HYPOTHYROIDISM FIBROMYALGIA B12 DEFICIENCY NON- COMPLIANCE OF DIET, LIFESTYLE AND MEDICATIONS CHRONIC ANEMIA PROCEDURES: APPENDECTOMY RTK REPLACEMENT DR. YUAN 09/2019 COLONOSCOPY HEART CATH TUBAL LAST VITALS Temp Pulse Resp BP Pulse Ox 98.3 F 78 20 100/61 98 03/17/20 06:53 03/17/20 05:58 03/17/20 05:58 03/17/20 05:58 03/17/20 10:00 TAKE THESE MEDICATIONS AT HOME Amitriptyline HCl (Amitriptyline Hcl 25 Mg Tablet) 25 mg PO BEDTIME [facility] Last Admin: 03/16/20 20:22 Dose: 25 mg Documented by: Aspirin (Aspirin 81 Mg Tab.Chew) 81 mg PO DAILYWM [facility] Last Admin: 03/17/20 08:34 Dose: 81 mg Documented by: Atorvastatin Calcium (Atorvastatin Calcium 20 Mg Tablet) 20 mg PO BEDTIME [facility] Last Admin: 03/16/20 20:22 Dose: 20 mg Documented by: Bupropion HCl (Bupropion Hcl 150 Mg Tab.Er.24h) 150 mg PO BEDTIME [facility] Last Admin: 03/16/20 20:22 Dose: 150 mg Documented by: Cephalexin (Cephalexin 500 Mg Capsule) 500 mg PO TID [facility] X 3 MORE DAYS -- ( NEW) Stop: 03/18/20 08:59 Last Admin: 03/17/20 08:35 Dose: 500 mg Documented by: Duloxetine HCl (Duloxetine Hcl 30 Mg Capsule.) 60 mg PO BEDTIME [facility] Last Admin: 03/16/20 20:22 Dose: 60 mg Documented by: Ferrous Sulfate (Ferrous Sulfate 324 Mg Tablet.) 324 mg PO BID [facility] -- (NEW) Last Admin: 03/17/20 08:35 Dose: 324 mg Documented by: Hydroxychloroquine Sulfate (Hydroxychloroquine Sulfate 200 Mg Tablet) 200 mg PO BIDWM [facility] Last Admin: 03/17/20 08:34 Dose: 200 mg Documented by: Levothyroxine Sodium (Levothyroxine Sodium 100 Mcg Tablet) 100 mcg PO QDAC [facility] -- ( CHANGED) Last Admin: 03/17/20 05:53 Dose: 100 mcg Documented by: Nitroglycerin (Nitroglycerin 0.4 Mg Tab.Subl) 0.4 mg SL Q5MIN X 3 DOSES PRN PRN Reason: Chest Pain Pantoprazole Sodium (Pantoprazole Sodium 40 Mg Tablet.Dr) 40 mg PO QDAC [facility] Last Admin: 03/17/20 05:53 Dose: 40 mg Documented by: Potassium Chloride (Potassium Chloride 20 Meq Tab) 10 meq PO DAILYWM [facility] -- ( NEW) Last Admin: 03/17/20 08:34 Dose: 20 meq Documented by: Tramadol HCl (Tramadol Hcl 50 Mg Tablet) 50 mg PO TID [facility] -- ( CHANGED) Last Admin: 03/17/20 08:35 Dose: 50 mg Documented by: Celecoxib (Celecoxib 100 Mg Capsule) 100 mg PO DAILYWM [facility] -- (CHANGED) ALLERGIES No Known Allergies Allergy (Verified 09/15/19 11:17) DISCONTINUED MEDICATIONS MULTIVITAMIN VITAMIN B COMPLEX DOCUSATE SODIUM FISH OIL NEW PRESCRIPTIONS: NEW PRESCRIPTIONS Cephalexin 500 mg PO TID [facility] X 3 MORE DAYS Ferrous Sulfate 324 mg PO BID [facility] Levothyroxine Sodium 100 mcg PO QDAC [facility] Potassium Chloride 10 meq PO DAILYWM [facility] Tramadol HCl 50 mg PO TID [facility] Celecoxib 100 mg PO DAILYWM [facility] SMOKING: N/A DISEASE SPECIFIC EDUCATION: UTI DEMENTIA FALL PRECAUTIONS PAIN MANAGEMENT COVID - 19 LAB REVIEW: 03/17/20 04:39 03/17/20 04:39 03/17/20 04:39: Sodium 136.1, Potassium 4.11, Chloride 100.3, Carbon Dioxide 26.8, Anion Gap 13.11, BUN 20.1 H, Creatinine 0.93, Estimated GFR (MDRD) 60.00, BUN/Creatinine Ratio 21.61, Glucose 100.6, Calcium 9.47, Total Bilirubin 0.48, AST 30.2, ALT 13.7, Alkaline Phosphatase 60.7, Total Protein 7.34, Albumin 4.22, Globulin 3.12, Albumin/Globulin Ratio 1.35 03/17/20 04:39: WBC 5.43, RBC 3.97 L, Hgb 10.5 L, Hct 31.9 L, MCV 80.4 L, MCH 26.4 L, MCHC 32.9, RDW Coeff of Jaclyn 17.0 H, Plt Count 214, Immature Gran % (Auto) 0.4, Neut % (Auto) 34.7 L, Lymph % (Auto) 52.1 H, [place] % (Auto) 10.5 H, Eos % (Auto) 1.7, Baso % (Auto) 0.6, Neut # (Auto) 1.9 L, Lymph # (Auto) 2.8, [place] # (Auto) 0.6, Eos # (Auto) 0.1, Baso # (Auto) 0.0, Immature Gran # (Auto) 0.0 03/15/20 14:49: SARS-CoV-2 RNA (DIAZ) Not detected PLAN: DISCHARGE: MARCH 17, 2020 TO [facility] ([place] TO TRANSFER ACTIVITY: UP WITH ASSIST OF 1-2 STAFF MEMBERS AND WHEELED WALKER FALL AND DEMENTIA PRECAUTIONS PT, OT AND ACURA SALES CONSULTANT EVAL AND TREAT DIET: REGULAR , MRS CLAYTON DOES NOT HAVE ADEQUATE DENTATION BUT INSIST ON REGULAR DIET CASINO CASHIER MANAGER CONSULT MD FOLLOW UP: DR. BARRON/ MELVIN SETH APRN/ DIONI CONLEY APRN MAKE APPOINTMENT IN 2 WEEKS NEED TO F/U WITH DR. MONTEIRO FOR THE RHEUMATOID ARTHRITIS LABS: CBC,CMP, FREE T4 AND TSH ON Sunday AND SEND RESULTS TO DR. BARRON PHONE [phone], FAX [phone] OXYGEN: 2 L/M PER N/C PRN TO KEEP O2 SATURATIONS PER PULSE OX >90% VITAL SIGNS PER FACILITY PROTOCOL CODE STATUS:DO NOT INTUBATE MRS. CLAYTON IS ALERT AND ORIENTED X 4. SHE IS PLEASANT AND PLEASANTLY FORGETFUL AND HAS SLIGHT COGNITIVE SLUGGISHNESS. SHE IS ABLE TO FEED HERSELF WITH MEAL SET-UP. SHE EATS SLOW WITH VERY FEW TEETH AND INSIST ON A REGULAR DIET. NUTRITIONAL AND FLUID INTAKE ARE FAIR TO GOOD. LUNG SOUNDS COURSE AND DIMINISHED. NO COUGH. HAS WORN THE N/C @ 2 L/M BUT THEN TAKES IT OFF AT TIMES. HER SATURATIONS HAVE REMAINED ABOVE 90% WITH AND WITH OUT OXYGEN. SHE HAS BEEN INCONTINENT OF BOWEL ( AT TIMES) AND BLADDER. SKIN WARM DRY AND INTACT. UP WITH WALKER AND ASSIST OF 1-2. ASSIST OF 1 WITH CERTAIN ASPECTS AND MINIMAL CUES REQUIRED WITH CERTAIN ADILs AND ADLs. SHE HAS BEEN LIVING WITH HER WHO CAN NO LONGER TAKE CARE OF HER DUE TO HER CHANGES IN MENTALITY AND ACTIVITY /FALL RISK. SHE WANTS TO GO HOME BUT HAS AGREED TO GOING TO [facility] ([place]) FOR REHAB WITH POSSIBLE INTERMEDIATE. VICTOR HUGO TSANG MD, APRN
--- NOTE | 2020-03-22 14:08 | DS ---
DATE OF SERVICE: 03/17/20 FINAL DIAGNOSIS: 1. UTI, E- COLI* 2. HYPOKALEMIA, RESOLVED* 3. SHORTNESS OF BREATH/ FATIGUE/SHAKING WITH HISTORY OF FALLS/COMBINATION OF INACTIVITY 4. RHEUMATOID ARTHRITIS - DR. MONTEIRO 5. STATUS POST RIGHT KNEE REPLACEMENT WITH LOSS OF STRENGTH AND AGILITY 6. MIXED CONNECTIVE TISSUES DISEASE 7. CHRONIC ANEMIA HX: 8. SYSTEMATIC SCLEROSIS 9. CAD S/P CATH 01/2016 EF 45% (NON-OBSTRUCTIVE) 10. FORGETFUL/EARLY DEMENTIA 11. OBESITY 12. GERD 13. DEPRESSION 14. OSTEOPENIA - REFUSES DEXA 15. HYPOTHYROIDISM 16. FIBROMYALGIA 17. B12 DEFICIENCY 18. NON-COMPLIANCE OF DIET, LIFESTYLE AND MEDICATIONS 19. CHRONIC ANEMIA PROCEDURES: 20. APPENDECTOMY 21. RTK REPLACEMENT DR. YUAN 09/2019 22. COLONOSCOPY 23. HEART CATH 24. TUBAL LAST VITALS Temp Pulse Resp BP Pulse Ox 98.3 F 78 20 100/61 98 03/17/20 06:53 03/17/20 05:58 03/17/20 05:58 03/17/20 05:58 03/17/20 10:00 DISCHARGE INSTRUCTIONS: 1. DISCHARGE: MARCH 17, 2020 TO [facility], TO TRANSFER 2. MD FOLLOW UP: DR. BARRON/MELVIN SETH APRN/DIONI CONLEY APRN MAKE APPOINTMENT IN 2 WEEKS. NEED TO F/U WITH DR. MONTEIRO FOR THE RHEUMATOID ARTHRITIS. 3. LABS: CBC,CMP, FREE T4 AND TSH ON SUNDAY MARCH 22, 2020 AND SEND RESULTS TO DR. BARRON PHONE [phone], FAX [phone]. 4. OXYGEN: 2 L/M PER N/C PRN TO KEEP O2 SATURATIONS PER PULSE OX >90%. 5. VITAL SIGNS PER FACILITY PROTOCOL. MEDICATIONS AT DISCHARGE: Amitriptyline HCl (Amitriptyline Hcl 25 Mg Tablet) 25 mg PO BEDTIME [facility] Last Admin: 03/16/20 20:22 Dose: 25 mg Documented by: Aspirin (Aspirin 81 Mg Tab.Chew) 81 mg PO DAILYWM CARISSA Last Admin: 03/17/20 08:34 Dose: 81 mg Documented by: Atorvastatin Calcium (Atorvastatin Calcium 20 Mg Tablet) 20 mg PO BEDTIME [facility] Last Admin: 03/16/20 20:22 Dose: 20 mg Documented by: Bupropion HCl (Bupropion Hcl 150 Mg Tab.Er.24h) 150 mg PO BEDTIME [facility] Last Admin: 03/16/20 20:22 Dose: 150 mg Documented by: Cephalexin (Cephalexin 500 Mg Capsule) 500 mg PO TID [facility] X 3 MORE DAYS -- ( NEW) Stop: 03/18/20 08:59 Last Admin: 03/17/20 08:35 Dose: 500 mg Documented by: Duloxetine HCl (Duloxetine Hcl 30 Mg Capsule.) 60 mg PO BEDTIME [facility] Last Admin: 03/16/20 20:22 Dose: 60 mg Documented by: Ferrous Sulfate (Ferrous Sulfate 324 Mg Tablet.) 324 mg PO BID [facility] -- (NEW) Last Admin: 03/17/20 08:35 Dose: 324 mg Documented by: Hydroxychloroquine Sulfate (Hydroxychloroquine Sulfate 200 Mg Tablet) 200 mg PO BIDWM [facility] Last Admin: 03/17/20 08:34 Dose: 200 mg Documented by: Levothyroxine Sodium (Levothyroxine Sodium 100 Mcg Tablet) 100 mcg PO QDAC [facility] -- ( CHANGED) Last Admin: 03/17/20 05:53 Dose: 100 mcg Documented by: Nitroglycerin (Nitroglycerin 0.4 Mg Tab.Subl) 0.4 mg SL Q5MIN X 3 DOSES PRN PRN Reason: Chest Pain Pantoprazole Sodium (Pantoprazole Sodium 40 Mg Tablet.) 40 mg PO QDAC [facility] Last Admin: 03/17/20 05:53 Dose: 40 mg Documented by: Potassium Chloride (Potassium Chloride 20 Meq Tab) 10 meq PO DAILYWM [facility] -- ( NEW) Last Admin: 03/17/20 08:34 Dose: 20 meq Documented by: Tramadol HCl (Tramadol Hcl 50 Mg Tablet) 50 mg PO TID [facility] -- ( CHANGED) Last Admin: 03/17/20 08:35 Dose: 50 mg Documented by: Celecoxib (Celecoxib 100 Mg Capsule) 100 mg PO DAILYWM [facility] -- (CHANGED) NEW PRESCRIPTIONS: Cephalexin 500 mg PO TID [facility] X 3 MORE DAYS Ferrous Sulfate 324 mg PO BID [facility] Levothyroxine Sodium 100 mcg PO QDAC [facility] Potassium Chloride 10 meq PO DAILYWM [facility] Tramadol HCl 50 mg PO TID [facility] Celecoxib 100 mg PO DAILYWM [facility] DISCONTINUED MEDICATIONS: MULTIVITAMIN VITAMIN B COMPLEX DOCUSATE SODIUM FISH OIL DIET INSTRUCTIONS: REGULAR, [facility] DOES NOT HAVE ADEQUATE DENTATION BUT 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 The patient looked dehydrated. In the hospital, the patient was given IV fluids. She was also found to be hypokalemic with potassium of 2.6. Potassium supplements were given. At discharge her potassium is 4.1. The patient's abnormal UA for E. coli which was sensitive to Cephalosporin. She was put on initially Rocephin and later on switched to Keflex. The patient is afebrile, feeling a lot better. Her appetite has improved. Her mental status improved. Skin turgor is a lot better on physical exam. Echocardiogram revealed normal LV contractility, borderline LVH. Valvular structures were normal. The patient's family wants her to go to the halfway. She will be placed at [place]. The patient is also under care of Dr. Monteiro, captain cannery tender. All the medications like Tramadol, Celebrex, Hydroxychloroquine were continued along with iron supplements. The patient has declined any mammogram or colonoscopy. She is oriented to time, place and person. The rest of the medications were continued like aspirin, Atorvastatin, Wellbutrin, Duloxetine, Hydroxychloroquine, Nitroglycerin as needed, Amitriptyline and Pantoprazole. Changes were made in the following medications: Celebrex was decreased to 100 mg daily, Tramadol was decreased to three times a day instead of four. K-tab was added 10 mEq p.o. daily. L-thyroxine was increased to 100 mcg as the patient's TSH was found to be slightly elevated. The patient is strongly advised to followup with Dr. Monteiro. The Covid-19 test was negative on admission and also at discharge. Condition at the time of discharge was stable. TIME SPENT: More than 60 minutes. MTDD
--- NOTE | 2020-03-22 14:18 | PN ---
BILLING 03/11/20 ADMISSION DAY LEVEL 5 03/12/20 INTERMEDIATE 03/13/20 INTERMEDIATE 03/14/20 INTERMEDIATE 03/15/20 INTERMEDIATE 03/16/20 INTERMEDIATE 03/17/20 D IN DISCHARGE MTDD
--- NOTE | 2020-03-23 09:44 | PN ---
DATE OF SERVICE: 03/17/20 SUBJECTIVE: 69-year-old white female hospitalized with shortness of breath, fatigue, inability to ambulate without support, worsening of oral physical status. On further workup, the patient has severe hypokalemia which has resolved with potassium supplements. The patient had UTI with E. coli sensitive to Cephalosporin, was treated with Rocephin. Condition overall has improved. Her appetite has improved. Color looks a lot better. The patient has severe osteoarthritis and rheumatoid arthritis for which is being cared for by Dr. Haynes, Software Engineer Mobile. REVIEW OF SYSTEMS: CONSTITUTIONAL: No night sweats. No fatigue, malaise, lethargy. No fever or chills. HEENT: Eyes: No visual changes. No eye pain. No eye discharge. ENT: No runny nose. No epistaxis. No sinus pain. No sore throat. No odynophagia. No congestion. RESPIRATORY: No cough, no congestion. No hemoptysis. No shortness of breath. CARDIOVASCULAR: No angina symptoms. No CHF symptoms. No atypical chest pain for CAD. No palpitations. No PND. No orthopnea. GASTROINTESTINAL: No abdominal pain. No nausea or vomiting. No diarrhea or constipation. No hematemesis. No hematochezia. GENITOURINARY: No urgency. No frequency. No dysuria. No hematuria. No obstructive symptoms. No discharge. No pain. No significant abnormal bleeding. MUSCULOSKELETAL: Difficulty ambulating. No musculoskeletal pain; no joint swelling. NEUROLOGICAL: No headache. No neck pain. No syncope. No seizures. No dizziness. PSYCHIATRIC: Not anxious. No depression. No suicidal thoughts. No homicidal thoughts. SKIN: No rash. No lesions. No wounds. ENDOCRINE: No unexplained weight loss. No weight gain. HEMATOLOGIC/LYMPHATIC: No anemia. No purpura. No petechiae. No prolonged or excessive bleeding. No palpable lymph nodes. PHYSICAL EXAMINATION: VITAL SIGNS: Temperature 98.2, pulse 78, respiratory rate 20, BP 100/60, pulse ox 97%. HEENT: Head normocephalic, atraumatic. Eyes: Extraocular muscles are intact. Pupils are equal, round and reactive to light and accommodation. Ears: No lesions. Nose appeared normal. Throat: No exudate or erythema. NECK: Supple. No JVD, no carotid bruit. No lymphadenopathy or thyromegaly. LUNGS: Decreased breath sounds but clear to auscultation. Percussion note normal. Chest symmetrical. HEART: S1, S2, no S3. No murmurs. No cyanosis or clubbing. No ascites. Pulses: Dorsalis pedis and posterior tibial pulses +1 to +2 bilaterally. ABDOMEN: Soft. Nontender. Bowel sounds active. No CVA tenderness. No mass felt. EXTREMITIES: No edema. Full range of motion of all extremities, equal. NEUROLOGIC: No focal deficit. Cranial nerves II through XII are grossly intact. No headache, no double vision or headache. SKIN: Not dry. Intact. Turgor - normal. LYMPHATIC: No palpable lymph nodes/no lymphedema. MUSCULOSKELETAL: Normal joints with no swelling. Muscle tone is normal. LABS: Hemoglobin 10.5, hematocrit 31, WBC 5,400, normal differential. Creatinine 0.9, BUN 20, potassium 4.1. ASSESSMENT: 1. Hypokalemia resolved. 2. UTI being treated. 3. Generalized osteoarthritis. 4. Rheumatoid arthritis being treated with all the medications she was on before. PLAN: 1. She is going to be discharged to the custodial, [place]. 2. Will see her back in two weeks. 3. She will be discharged with new medication Keflex 500 t.i.d for five days. 4. Change in the medication will be Celebrex 100 mg p.o. daily. 5. K-Tab 10 mEq p.o. daily. 6. Continue the rest of the medication Tramadol, will be reduced to t.i.d. instead of q.i.d. TIME SPENT: More than 30 minutes. Plan and coordination of the patient's care discussed in the presence of nurse. JULIANN
== END 2020-03-17 16:18 | disposition short-term general hospital (02) | DRG 204 ==
LOC: MEDSURG A 10:34
PROVIDERS: ADMIT Internal Medicine; ATTEND Internal Medicine

== ENCOUNTER 2021-05-02 10:03 | Inpatient (IN) ==
[2021-05-02 10:32] LABS: BORDETELLA PARAPERTUSSIS (PCR) NOT DETECTED (NOT DETECT); BORDETELLA PERTUSSIS (PCR) NOT DETECTED (NOT DETECT); CHLAMYDIA PNEUMONIAE (PCR) NOT DETECTED (NOT DETECT); CORONAVIRUS 229E (PCR) NOT DETECTED (NOT DETECT); CORONAVIRUS HKU1 (PCR) NOT DETECTED (NOT DETECT); CORONAVIRUS NL63 (PCR) NOT DETECTED (NOT DETECT); CORONAVIRUS OC43 (PCR) NOT DETECTED (NOT DETECT); HUMAN METAPNEUMOVIRUS (PCR) NOT DETECTED (NOT DETECT); HUMAN RHINOVIRUS/ENTEROV (PCR) NOT DETECTED (NOT DETECT); INFLUENZA B (PCR) NOT DETECTED (NOT DETECT); MYCOPLASMA PNEUMONIAE (PCR) NOT DETECTED (NOT DETECT); PARAINFLUENZA VIRUS 1 (PCR) NOT DETECTED (NOT DETECT); PARAINFLUENZA VIRUS 2 (PCR) NOT DETECTED (NOT DETECT); PARAINFLUENZA VIRUS 3 (PCR) NOT DETECTED (NOT DETECT); PARAINFLUENZA VIRUS 4 (PCR) NOT DETECTED (NOT DETECT); RESPIRATORY SYNCYTIAL V (PCR) NOT DETECTED (NOT DETECT); SARS_COV_2 (PCR) NOT DETECTED (NOT DETECT)
[2021-05-02 11:49] LABS: ADENOVIRUS (PCR) NOT DETECTED (NOT DETECT)
[2021-05-02 12:24] VITALS: BMI 26.9
[2021-05-02] MEDS ORDERED: NITROSTAT SL PRN (12:45)
[2021-05-02] MEDS ORDERED: ATROPINE SULFATE PFS IVP PRN (12:45)
[2021-05-02] MEDS ORDERED: TYLENOL PO PRN (12:45)
[2021-05-02] MEDS ORDERED: ZOFRAN 4 MG/2 ML IVP PRN (12:50)
[2021-05-02] MEDS ORDERED: ULTRAM PO PRN (12:54)
[2021-05-02 13:09] LABS: BASOPHILS % (AUTO) 0.3 % (0.0-3.0); EOSINOPHILS % (AUTO) 0.3 % (0.0-7.0); HEMATOCRIT 36.5 % (37.0-47.0); HEMOGLOBIN 12.7 g/dl (12.0-16.0); IMMATURE GRANULOCYTE % (AUTO) 0.3 % (0.0-5.0); LYMPHOCYTES # (AUTO) 2.4 K/uL (0.60-3.4); LYMPHOCYTES % (AUTO) 41.8 (10.0-50.0); MEAN CORPUSCULAR HEMOGLOBIN 30.7 pg (27.0-31.0); MEAN CORPUSCULAR HGB CONC 34.8 (31.8-35.4); MEAN CORPUSCULAR VOLUME 88.2 fl (81.0-99.0); MONOCYTES # (AUTO) 0.6 K/uL (0.4-2.0); MONOCYTES % (AUTO) 10.4 (0-10); NEUTROPHILS # (AUTO) 2.7 K/ul (2.0-6.9); NEUTROPHILS % (AUTO) 46.9 % (42.2-75.2); PLATELET COUNT 196 10^3/uL (140-440); RDW COEFFICIENT OF VARIATION 13.2 % (11.6-14.8); RED BLOOD COUNT 4.14 10^6/ul (4.20-5.40); WHITE BLOOD COUNT 5.79 K/ul (4.6-10.2)
--- NOTE | 2021-05-02 14:43 | CT ---
EXAM: Chest CT with and without contrast 05/02/2021 HISTORY: Nausea vomiting. TECHNIQUE: Axial CT images were obtained through the chest with and without the administration of int ravenous contrast. Coronal and sagittal reformatted images were also submitted for interpretation. COMPARISON: CT chest 11/24/16. FINDINGS: The lower neck is within normal limits. Major airways are patent. No pneumothorax or pleural fluid. Bibasilar atelectatic changes. Calcified granuloma in the right lower lobe. There is a 0.5 cm pul monary nodule in the lingula (sagittal series 11, image 21). 0.3 cm pulmonary nodule in the right up per lobe (sagittal series 11, image 95). The heart size is normal without pericardial effusion. The unenhanced thoracic aorta is normal in si ze. Aberrant right subclavian artery. Enlarged pulmonary trunk measuring 3.7 cm concerning for pulmo nary arterial hypertension. No pathologic lymphadenopathy is identified. Soft tissue structures are unremarkable. The visualized portions of the upper abdomen demonstrate atrophic changes in the pancreas. Small hia carlin hernia. Calcified granulomas in the spleen. Possible hepatic steatosis. Correlation with LFTs recommended. The bones are intact. IMPRESSION: - No acute findings. - 0.5 cm pulmonary nodule in the lingula. 0.3 cm pulmonary nodule in the right upper lobe. Accordin g to the Fleischner Society guidelines, in a low risk patient no further follow-up is necessary. How ever, in high risk patient obtaining CT chest in 12 months is optional. - Bibasilar atelectatic changes. No consolidative opacities. - Enlarged pulmonary trunk measuring 3.7 cm concerning for pulmonary arterial hypertension. - Possible hepatic steatosis. Correlation with LFTs recommended. All CT scans are performed using dose optimization techniques as appropriate to the performed exam an d include at least one of the following: Automated exposure control, adjustment of the mA and/or kV according t o size, and the use of iterative reconstruction technique.
--- NOTE | 2021-05-02 14:43 | CT ---
EXAM: CT Head HISTORY: Poor memory, vertical COMPARISON: 09/30/2019 TECHNIQUE: CT head performed without contrast FINDINGS: There is no mass effect, midline shift, or intracranial hemmorhage. Arrington white differenti ation is preserved. There is no extra-axial collection. The ventricles, sulci, and basal cisterns a re patent and symmetric. There is chronic ischemic disease of the white matter and cerebral volume l oss. There is no depressed calvarial fracture. The mastoid air cells are clear. The visualized para nasal sinuses are clear. There are intracranial atherosclerotic calcifications. No abnormal area of enhancement. IMPRESSION: 1. No acute intracranial abnormality. No abnormal area of enhancement. 2. Chronic ischemic disease of the white matter and cerebral volume loss. All CT scans are performed using dose optimization techniques as appropriate to the performed exam an d include at least one of the following: Automated exposure control, adjustment of the mA and/or kV according t o size, and the use of iterative reconstruction technique.
[2021-05-02] MEDS ORDERED: NON-FORMULARY MEDICATION (Omega-3 Fatty Acids Capsule) PO SCH (15:00)
[2021-05-02 15:07] LABS: ALANINE AMINOTRANSFERASE 13.9 U/L (0-35); ALBUMIN 4.11 g/dL (3.5-5.0); ALKALINE PHOSPHATASE 51.9 U/L (53-141); ASPARTATE AMINO TRANSFERASE 30.7 U/L (14-36); BILIRUBIN,TOTAL 0.97 mg/dL (0.2-1.3); BLOOD UREA NITROGEN 9.9 mg/dL (7-17); CALCIUM 9.09 mg/dL (8.4-10.2); CARBON DIOXIDE 33.6 mmol/L (22-30.0); CHLORIDE 94.5 mmol/L (98-107); CREATINE KINASE 31.7 U/L (30-135); CREATININE 0.6 mg/dL (0.60-1.30); GLUCOSE 94.4 mg/dL (74-106); POTASSIUM 2.3 mmol/L (3.5-5.1); SODIUM 134.8 mmol/L (134.5-145); TOTAL PROTEIN 6.95 g/dL (6.3-8.2)
[2021-05-02 15:08] LABS: TROPONIN I < 0.012 ng/ml (0.0000-0.120)
[2021-05-02] MEDS ORDERED: K-DUR PO STA (16:01)
[2021-05-02] MEDS: SODIUM CHLORIDE 0.9%-KCL 20 MEQ 1,000 ML IV SCH (16:24)
[2021-05-02] MEDS: PROTONIX IV IVP SCH ×2 (16:24→17:03)
[2021-05-02] MEDS: LIPITOR PO SCH (16:28)
[2021-05-02] MEDS: PLAQUENIL PO SCH (16:31)
[2021-05-02 19:29] LABS: BILIRUBIN,URINE Negative (NEGATIVE); CLARITY,URINE Cloudy (CLEAR); COLOR,URINE Yellow (YELLOW); GLUCOSE, URINE (UA) Negative (NEGATIVE); KETONES,URINE Negative (NEGATIVE); LEUKOCYTE ESTERASE ,URINE 2+ (NEGATIVE); NITRITE,URINE Positive (NEGATIVE); PH,URINE 5.5 (5-9); PROTEIN,URINE Negative (NEGATIVE); URINE, BLOOD Trace-intact (NEGATIVE)
[2021-05-02 19:36] LABS: BACTERIA,URINE 3+ (NOT PRESENT); URINE RBC, MICROSCOPIC 0-2 (0-2)
[2021-05-02] MEDS: CYMBALTA PO SCH (20:19)
[2021-05-02] MEDS: WELLBUTRIN XL PO SCH (20:19)
[2021-05-02] MEDS: OMEGA-3 FISH OIL PO SCH (20:20)
[2021-05-02] MEDS: FERROUS SULFATE PO SCH (20:20)
[2021-05-02] MEDS ORDERED: ELAVIL PO SCH (21:00)
[2021-05-02 21:40] LABS: CREATINE KINASE 30.3 U/L (30-135)
[2021-05-02 21:53] LABS: TROPONIN I < 0.012 ng/ml (0.0000-0.120)
[2021-05-03 05:19] LABS: BASOPHILS % (AUTO) 0.2 % (0.0-3.0); EOSINOPHILS % (AUTO) 0.4 % (0.0-7.0); HEMATOCRIT 33.6 % (37.0-47.0); HEMOGLOBIN 11.8 g/dl (12.0-16.0); IMMATURE GRANULOCYTE % (AUTO) 0.5 % (0.0-5.0); LYMPHOCYTES # (AUTO) 1.7 K/uL (0.60-3.4); LYMPHOCYTES % (AUTO) 20.9 (10.0-50.0); MEAN CORPUSCULAR HEMOGLOBIN 31.2 pg (27.0-31.0); MEAN CORPUSCULAR HGB CONC 35.1 (31.8-35.4); MEAN CORPUSCULAR VOLUME 88.9 fl (81.0-99.0); MONOCYTES # (AUTO) 0.6 K/uL (0.4-2.0); MONOCYTES % (AUTO) 7.8 (0-10); NEUTROPHILS # (AUTO) 5.8 K/ul (2.0-6.9); NEUTROPHILS % (AUTO) 70.2 % (42.2-75.2); PLATELET COUNT 193 10^3/uL (140-440); RDW COEFFICIENT OF VARIATION 13.3 % (11.6-14.8); RED BLOOD COUNT 3.78 10^6/ul (4.20-5.40)
[2021-05-03 05:31] LABS: ALANINE AMINOTRANSFERASE 13.1 U/L (0-35); ALBUMIN 3.47 g/dL (3.5-5.0); ALKALINE PHOSPHATASE 44.9 U/L (53-141); ASPARTATE AMINO TRANSFERASE 24.9 U/L (14-36); BILIRUBIN,TOTAL 0.68 mg/dL (0.2-1.3); CALCIUM 8.45 mg/dL (8.4-10.2); CARBON DIOXIDE 28.9 mmol/L (22-30.0); CHLORIDE 101.4 mmol/L (98-107); CREATININE 0.59 mg/dL (0.60-1.30); GLUCOSE 109.3 mg/dL (74-106); SODIUM 138.3 mmol/L (134.5-145); TOTAL PROTEIN 6.08 g/dL (6.3-8.2)
[2021-05-03] MEDS: PROTONIX IV IVP SCH ×2 (05:31→17:23)
[2021-05-03] MEDS: SODIUM CHLORIDE 0.9%-KCL 20 MEQ 1,000 ML IV SCH (05:31)
[2021-05-03 05:38] LABS: POTASSIUM 2.64 mmol/L (3.5-5.1)
[2021-05-03] MEDS ORDERED: NON-FORMULARY MEDICATION (Calcium 600 mg Capsule) PO SCH (09:00)
[2021-05-03] MEDS ORDERED: MICRO-K CAP PO SCH (09:00)
[2021-05-03] MEDS ORDERED: CHOLECALCIFEROL PO SCH (09:00)
--- NOTE | 2021-05-03 09:07 | PCM.PROG ---
Attending Provider: ATTENDING PROVIDER: Dr. RACHEL BARRON This patient is seen with Katy Shankar, Nurse Practitioner. DATE OF SERVICE: 05/03/21 SUBJECTIVE: This 70 year old /WHITE F was hospitalized 05/02/21. Potassium slightly improved, still very low. The patient reports ate well. No vomiting. Slept well. TSH very low. The patient had previous symptoms of hypothyroidism. Urine nitrate positive. The patient has long history with noncompliance with medications and followup. REVIEW OF SYSTEMS: CONSTITUTIONAL: No night sweats. No fatigue, malaise, lethargy. No fever or chills. Weakness. HEENT: Eyes: No visual changes. No eye pain. No eye discharge. ENT: No runny nose. No epistaxis. No sinus pain. No odynophagia. No congestion. RESPIRATORY: No cough, no congestion. No hemoptysis. No shortness of breath. CARDIOVASCULAR: No angina symptoms. No CHF symptoms. No atypical chest pain for CAD. No palpitations. No orthopnea.. GASTROINTESTINAL: No abdominal pain. No nausea or vomiting. No diarrhea or constipation. No hematemesis. No hematochezia. GENITOURINARY: No urgency. No frequency. No dysuria. No hematuria. No obstructive symptoms. No discharge. No pain. No significant abnormal bleeding. MUSCULOSKELETAL: No musculoskeletal pain; no joint swelling. NEUROLOGICAL: Awake, alert, oriented to time, place and person. No headache. No neck pain. No syncope. No seizures. No dizziness. PSYCHIATRIC: Not anxious. No depression. No suicidal thoughts. No homicidal thoughts. SKIN: No rash. No lesions. No wounds. ENDOCRINE: No unexplained weight loss. No weight gain. HEMATOLOGIC/LYMPHATIC: No anemia. No purpura. No petechiae. No prolonged or excessive bleeding. No palpable lymph nodes. PHYSICAL EXAMINATION: GENERAL: The patient is awake, alert and oriented, lying in bed in no distress. VITAL SIGNS: Temperature 97.8 F, Pulse 72, Respiratory Rate 16, BP 101/62, Pulse Ox 97% HEENT: Head normocephalic, atraumatic. Eyes: Extraocular muscles are intact. Pupils are equal, round and reactive to light and accommodation. Ears: No lesions. Nose appeared normal. Throat: No exudate or erythema. NECK: Supple. No JVD, no carotid bruit. No lymphadenopathy or thyromegaly. LUNGS: Diminished breath sounds. Clear to auscultation. Percussion note normal. Chest symmetrical. HEART: S1, S2, no S3. No murmurs. No cyanosis or clubbing. No ascites. Pulses: Dorsalis pedis and posterior tibial pulses +1 to +2 both sides. ABDOMEN: Soft. Non-tender. Bowel sounds active. No CVA tenderness. No mass felt. EXTREMITIES: No edema. Full range of motion of all extremities, equal. NEUROLOGIC: No focal deficit. Cranial nerves II through XII are grossly intact. No headache. No double vision. SKIN: Not dry. Intact. Turgor-normal. LYMPHATIC: No palpable lymph nodes/no lymphedema. MUSCULOSKELETAL: Normal joints with no swelling. Muscle tone is normal. LAB REVIEW: 05/03/21 04:53 05/03/21 04:53 05/03/21 04:53: Sodium 138.3, Potassium 2.64 L*, Chloride 101.4, Carbon Dioxide 28.9, Anion Gap 10.64, BUN 10.0, Creatinine 0.59 L, Estimated GFR (MDRD) 101.00, BUN/Creatinine Ratio 16.94, Glucose 109.3 H, Calcium 8.45, Total Bilirubin 0.68, AST 24.9, ALT 13.1, Alkaline Phosphatase 44.9 L, Total Protein 6.08 L, Albumin 3.47 L, Globulin 2.61, Albumin/Globulin Ratio 1.32 05/03/21 04:53: WBC 8.20, RBC 3.78 L, Hgb 11.8 L, Hct 33.6 L, MCV 88.9, MCH 31.2 H, MCHC 35.1, RDW Coeff of Jaclyn 13.3, Plt Count 193, Immature Gran % (Auto) 0.5, Neut % (Auto) 70.2, Lymph % (Auto) 20.9, [place] % (Auto) 7.8, Eos % (Auto) 0.4, Baso % (Auto) 0.2, Neut # (Auto) 5.8, Lymph # (Auto) 1.7, [place] # (Auto) 0.6, Eos # (Auto) 0.0, Baso # (Auto) 0.0, Immature Gran # (Auto) 0.0 05/02/21 21:20: Total Creatine Kinase 30.3, Troponin I < 0.012 05/02/21 19:20: Urine Color Yellow, Urine Clarity Cloudy, Urine pH 5.5, Ur Sp ecific [place] 1.010, Urine Protein Negative, Urine Glucose (UA) Negative, Urine Ketones Negative, Urine Blood Trace-intact H, Urine Nitrite Positive H, Urine Bilirubin Negative, Urine Urobilinogen 1.0 H, Ur Leukocyte Esterase 2+ H, Urine Microscopic RBC 0-2, Urine Microscopic WBC 10-20, Ur Squamous Epith Cells 2-5, Urine Bacteria 3+ 05/02/21 12:48: Free T4 2.63 H 05/02/21 12:47: TSH < 0.015 L 05/02/21 12:45: Sodium 134.8, Potassium 2.30 L*, Chloride 94.5 L, Carbon Dioxide 33.6 H, Anion Gap 9.00, BUN 9.9, Creatinine 0.60, Estimated GFR (MDRD) 99.00, BUN/Creatinine Ratio 16.50, Glucose 94.4, Calcium 9.09, Total Bilirubin 0.97, AST 30.7, ALT 13.9, Alkaline Phosphatase 51.9 L, Total Protein 6.95, Albumin 4.11, Globulin 2.84, Albumin/Globulin Ratio 1.44 05/02/21 12:45: WBC 5.79, RBC 4.14 L, Hgb 12.7, Hct 36.5 L, MCV 88.2, MCH 30.7, MCHC 34.8, RDW Coeff of Jaclyn 13.2, Plt Count 196, Immature Gran % (Auto) 0.3, Neut % (Auto) 46.9, Lymph % (Auto) 41.8, [place] % (Auto) 10.4 H, Eos % (Auto) 0.3, Baso % (Auto) 0.3, Neut # (Auto) 2.7, Lymph # (Auto) 2.4, [place] # (Auto) 0.6, Eos # (Auto) 0.0, Baso # (Auto) 0.0, Immature Gran # (Auto) 0.0 05/02/21 12:45: Total Creatine Kinase 31.7, Troponin I < 0.012 05/02/21 10:20: Adenovirus (PCR) Not detected, B. pertussis DNA (PCR) Not detected, B.parapertussis DNA PCR Not detected, C. pneumoniae DNA (PCR) Not detected, Coronavirus OC43 (PCR) Not detected, Coronavirus HKU1 (PCR) Not detected, Coronavirus 229E (PCR) Not detected, Coronavirus NL63 (PCR) Not detected, Human Metapneumovir PCR Not detected, Influenza Type A (PCR) Not detected, Influenza B (RT-PCR) Not detected, M. pneumoniae (PCR) Not detected, Parainfluenza 1 (PCR) Not detected, Parainfluenza 2 (PCR) Not detected, Parainfluenza 3 (PCR) Not detected, Parainfluenza 4 (PCR) Not detected, RSV (PCR) Not detected, Entero/Rhino (PCR) Not detected, SARS-CoV-2 (PCR) Not detected ASSESSMENT: Please see below. 1. Acute hypokalemia 2. UTI culture pending 3. Unexplained weight loss 4. Noncompliance with medications 5. Medically induced Hyperthyroidism 6. Pulmonary hypertension noted on CT. PLAN: 1. Start Rocephin 1 gram Daily 2. Increase 40meq Potassium in IV fluids 3. Continue Potassium PO 4. Urine culture 5. Decrease Elavil to 12.5mg QHS 6. 2D echo 7. Ultrasound liver Plan and coordination of the patient's care discussed in the presence of Wax Engraver and nurse. SCRIBED BY: Mariah CASH scribed while in presence of service performed by Dr. Barron/Katy Shankar APRN on 05/03/21 ([id number])
[2021-05-03] MEDS: NON-FORMULARY MEDICATION (Vitamin B12-Folic Acid 0.5-1 mg Tablet) PO SCH (09:14)
--- NOTE | 2021-05-03 09:19 | HP ---
DATE OF SERVICE: 05/02/ REASON FOR HOSPITALIZATION/HISTORY OF PRESENT ILLNESS: ER 04/29 at [facility] with Potassium 2.5, did not give any oral Potassium. Still weak and nauseated. Gave Prilosec and Zofran. vomiting off and on for several weeks. No fever. Very tired. Lack of appetite. PAST MEDICAL HISTORY: Hypothyroidism GERD Arthritis Elevated Cholesterol Fibromyalgia Spots on lungs Toxic colon Osteoporosis PAST SURGICAL HISTORY: Colonoscopy Heart cath Fatty tissue on left side of neck. Tubal REVIEW OF SYSTEMS: CONSTITUTIONAL: No fever, Fatigue. HEENT: No sinus drainage, no sore throat. RESPIRATORY: No cough, no congestion. CARDIOVASCULAR: No atypical chest pain for coronary artery disease. No angina, CHF symptoms, palpitations or shortness of breath. GASTROINTESTINAL: No melena. Abdominal pain. GERD. GENITOURINARY: No hematuria, no prostatism, no polyuria. FOOD AND BEVERAGE ATTENDANT: No blackout, no dizziness, no headache, no double vision. GAIT: Unsteady MUSCULOSKELETAL: No osteoarthritis pain, no joint swelling. ENDOCRINE: Weight loss of 22 pounds. No weight gain. SKIN: Not dry, no rash. PSYCHIATRIC: Not anxious, no depression, no suicidal thoughts, no homicidal thoughts. SOCIAL HISTORY: Marital Status: . Alcohol Usage: No. Tobacco Usage: No. FAMILY HISTORY: Father Mother Brother 1 Sister 1 MEDICATIONS: Stool softener PRN Vitamins daily Fish oil TID Atorvastatin 20mg Q daily Aspirin 81mg Q daily Bupropion XL 150mg Q daily Amitriptyline 25mg Q HS Nitrostat 0.4mg PO PRN Tramadol 50mg D daily Celebrex 60mg Q daily Cymbalta 60mg Q daily Plaquenil 200mg BID Levothyroxine 75mg Q daily Protonix 40mg Q daily Vitamin B Iron 325mg BID Patient promised to get appointment with Dr. Haynes Omeprazole 20mg- Yazdanism 04/29/21 Zofran 4mg daily PRN-Yazdanism 04/29/21 ALLERGIES: No known allergies PHYSICAL EXAMINATION: V/S: Pulse 100, blood pressure 128/76, temperature 97.9, pulse ox 98%. BMI 25.6, height 5'0, weight 131.0 GENERAL APPEARANCE: Oriented times three. Dry mucous membranes. HEENT: Pallor. NECK: No JVP, no bruits. RESPIRATORY: Decreased breath sounds. CARDIOVASCULAR: S1, S2, no S3, no murmur. No cyanosis, clubbing. No ascites. GI/ABDOMEN: Epigastric tenderness. Bowel sounds are active. EXTREMITIES: edema, pulses +1, equal. FOOD AND BEVERAGE ATTENDANT: Deep tendon reflexes, sensory, motor and gait all normal. RECTAL: Dr. Gomez. Colonoscopy screening PELVIC: Advised yearly 03/07/19 Mammogram. ASSESSMENT: 1. Weight loss 2. Dehydration 3. Hypokalemia 4. Generalized osteoarthritis 5. Rheumatoid arthritis. Dr. Haynes 6. Right TKR. Dr. Rodrigues 10/08 7. Mixed connective tissue disease 8. Systemic sclerosis 9. CAD -nonobstructive-cath 02/03 10.Fibromyalgia 11.Obesity 12.Status post appendectomy 13.Depression 14.Hypothyroidism 15.B12 deficiency 16.Chronic anemia 17.GERD 18.Left shoulder pain 19.Vestibular dysfunction. PLAN: 1. Patient to be tested in Drive thru 2. Routine telemetry orders 3. CBC and CMP now and daily 4. T4 TSH A1c 5. Normal saline IV at 75cc with 20meq Potassium 6. CT of chest with and without 7. U/A 8. Protonix 40mg IV Q 12 hours 9. Zofran 4mg IV Q 6 hour PRN 10.Continue home medications 11.Discontinue Celebrex 12.Hold aspirin 13.Hold Synthroid 14. Regular diet 15. CT of brain with and without 16.GI panel by PCR 17.Stool antigen test for H. Pylori TIME SPENT: More than 70 minutes. MTDD
[2021-05-03] MEDS: ROCEPHIN 1 GM/50 ML D5W 1 GM/50 ML BAG IV SCH (09:38)
[2021-05-03] MEDS: SODIUM CHLORIDE 0.9%-KCL 40MEQ 1,000 ML IV SCH ×2 (09:38→23:12)
[2021-05-03] MEDS: CALCIUM 500 + VIT D 5 MCG (200 IU) TABLET PO SCH (11:04)
[2021-05-03] MEDS: VITAMIN D PO SCH (11:04)
[2021-05-03] MEDS: PLAQUENIL PO SCH ×2 (11:04→17:23)
[2021-05-03] MEDS: OMEGA-3 FISH OIL PO SCH ×3 (11:04→20:31)
[2021-05-03] MEDS: K-DUR PO SCH ×5 (11:04→20:31)
[2021-05-03] MEDS: FERROUS SULFATE PO SCH ×2 (11:04→20:30)
--- NOTE | 2021-05-03 12:05 | US ---
EXAM: Ultrasound abdomen limited right upper quadrant HISTORY: Nausea, vomiting, weight loss COMPARISON: None TECHNIQUE: Limited ultrasound abdomen right upper quadrant was performed FINDINGS: Visualized portion pancreas appears normal. Portions of the pancreas obscured secondary t o bowel gas shadowing. Liver normal in size and echogenicity. Portions of the liver obscured second beth to shadowing artifact. Main portal vein patent with direction of flow. Multiple shadowing galls tones. The finding majority of the gallbladder lumen. No gallbladder wall thickening. No perichole cystic fluid. Technologist reports patient has tenderness in the region of the gallbladder. No bili beth duct dilation with common bile duct measuring 0.4 cm. Right kidney measures 10.0 cm in length wi thout hydronephrosis. IMPRESSION: Cholelithiasis. No gallbladder wall thickening. Technologist reports patient has tende rness in the region of the gallbladder.
[2021-05-03 12:52] LABS: ADENOVIRUS F40/41 (PCR) NOT DETECTED (NOT DETECT); ASTROVIRUS (PCR) NOT DETECTED (NOT DETECT); CAMPYLOBACTER (PCR) NOT DETECTED (NOT DETECT); CRYPTOSPORIDIUM (PCR) NOT DETECTED (NOT DETECT); CYCLOSPORA CAYETANENSIS (PCR) NOT DETECTED (NOT DETECT); ENTAMOEBA HISTOLYTICA (PCR) NOT DETECTED (NOT DETECT); ENTEROAGGREGATIVE E.COLI (PCR) NOT DETECTED (NOT DETECT); GIARDIA LAMBLIA (PCR) NOT DETECTED (NOT DETECT); NOROVIRUS GI/GII (PCR) NOT DETECTED (NOT DETECT); PLESIOMONAS SHIGELLOIDES (PCR) NOT DETECTED (NOT DETECT); ROTAVIRUS A (PCR) NOT DETECTED (NOT DETECT); SALMONELLA(PCR) NOT DETECTED (NOT DETECT); SAPOVIRUS (PCR) NOT DETECTED (NOT DETECT); SHIGA-LIKE TOXIN E.COLI (PCR) NOT DETECTED (NOT DETECT); VIBRIO (PCR) NOT DETECTED (NOT DETECT); VIBRIO CHOLERAE (PCR) NOT DETECTED (NOT DETECT); YERSINIA ENTEROCOLITICA (PCR) NOT DETECTED (NOT DETECT)
[2021-05-03 13:10] LABS: H. PYLORI STOOL ANTIGEN NEGATIVE (NEGATIVE)
[2021-05-03 14:13] LABS: C DIFF A/B (PCR) NOT DETECTED (NOT DETECT)
[2021-05-03] MEDS: LIPITOR PO SCH (17:23)
[2021-05-03] MEDS: CYMBALTA PO SCH (20:31)
[2021-05-03] MEDS: WELLBUTRIN XL PO SCH (20:31)
[2021-05-03] MEDS: ELAVIL PO SCH (20:31)
[2021-05-04 05:09] LABS: BASOPHILS % (AUTO) 0.3 % (0.0-3.0); EOSINOPHILS % (AUTO) 0.6 % (0.0-7.0); HEMATOCRIT 33.3 % (37.0-47.0); HEMOGLOBIN 11.5 g/dl (12.0-16.0); IMMATURE GRANULOCYTE % (AUTO) 0.5 % (0.0-5.0); LYMPHOCYTES % (AUTO) 31.2 (10.0-50.0); MEAN CORPUSCULAR HEMOGLOBIN 31.1 pg (27.0-31.0); MEAN CORPUSCULAR HGB CONC 34.5 (31.8-35.4); MONOCYTES # (AUTO) 0.5 K/uL (0.4-2.0); MONOCYTES % (AUTO) 7.7 (0-10); NEUTROPHILS # (AUTO) 3.9 K/ul (2.0-6.9); NEUTROPHILS % (AUTO) 59.7 % (42.2-75.2); PLATELET COUNT 190 10^3/uL (140-440); RDW COEFFICIENT OF VARIATION 13.2 % (11.6-14.8); WHITE BLOOD COUNT 6.53 K/ul (4.6-10.2)
[2021-05-04 05:21] LABS: ALANINE AMINOTRANSFERASE 11.9 U/L (0-35); ALBUMIN 3.65 g/dL (3.5-5.0); ALKALINE PHOSPHATASE 52.2 U/L (53-141); ASPARTATE AMINO TRANSFERASE 25.1 U/L (14-36); BILIRUBIN,TOTAL 0.71 mg/dL (0.2-1.3); BLOOD UREA NITROGEN 4.7 mg/dL (7-17); CALCIUM 8.49 mg/dL (8.4-10.2); CARBON DIOXIDE 26.1 mmol/L (22-30.0); CREATININE 0.6 mg/dL (0.60-1.30); GLUCOSE 95.9 mg/dL (74-106); POTASSIUM 3.77 mmol/L (3.5-5.1); SODIUM 139.2 mmol/L (134.5-145); TOTAL PROTEIN 6.43 g/dL (6.3-8.2)
[2021-05-04] MEDS: PROTONIX IV IVP SCH ×2 (07:09→17:27)
--- NOTE | 2021-05-04 08:38 | PN ---
DATE OF SERVICE: 05/02/21 SUBJECTIVE: The patient was seen and examined in the office and was hospitalized with severe hypokalemia and weight loss with vomiting. The patient has history of vomiting off and on for past several weeks. The patient was seen in the office on 04/29/21 and was sent to the lab for CBC and CMP where she was found to be severely hypokalemic with potassium of 2.2. The test that was ordered by Nurse Practitioner was not carried out because emergency room and radiologist recommended the patient to be transferred to some other place, a tertiary center. The patient ended up going to [facility] Emergency Room where she was given Potassium supplements and was sent home without any further plan except for to be seen by the primary care. The patient was given instruction that in case of her discharge from [facility] which was kind of expected. She needs to come back on Sunday. The patient was seen in the office on Sunday, this week walking with a cane. Her potassium now is 2.3. The patient is going to be hospitalized. She is COVID negative and going to get IV Potassium with telemetry to rule out any significant arrhythmia in case the patient has it. She is going to undergo the workup for weight loss. CONDITION: Stable. TIME SPENT: More than 30 minutes. Plan and coordination of the patient's care discussed in the presence of nurse. JULIANN
[2021-05-04] MEDS: PLAQUENIL PO SCH ×2 (08:40→17:27)
[2021-05-04] MEDS: CALCIUM 500 + VIT D 5 MCG (200 IU) TABLET PO SCH (08:41)
[2021-05-04] MEDS: OMEGA-3 FISH OIL PO SCH ×3 (08:41→20:43)
[2021-05-04] MEDS: K-DUR PO SCH ×4 (08:41→20:43)
[2021-05-04] MEDS: FERROUS SULFATE PO SCH ×2 (08:41→20:42)
[2021-05-04] MEDS: VITAMIN D PO SCH (08:41)
[2021-05-04] MEDS: NON-FORMULARY MEDICATION (Vitamin B12-Folic Acid 0.5-1 mg Tablet) PO SCH (08:43)
[2021-05-04] MEDS: ROCEPHIN 1 GM/50 ML D5W 1 GM/50 ML BAG IV SCH (08:43)
--- NOTE | 2021-05-04 10:59 | RS.SLPCNOT ---
Speech Case Note Date of Note: 05/04/21 Title: Speech Cosult Note: HEMMER CHAINSTITCH requested consult on patient due to cough and potential swallow difficulty. HEMMER CHAINSTITCH entered pt's room and discussed swallowing food, drinks, and medications. At this time, pt does report mild difficulty with swallowing large pills. HEMMER CHAINSTITCH provided education for safe swallowing, techniques to swallow pills, and aspiration precautions. HEMMER CHAINSTITCH also educated nurse on monitoring pt with impulsivity with pills to reduce risk for aspiration. The patient was also observed with hiccups; which she reported has been more frequent recently. HEMMER CHAINSTITCH recommends pt's GERD medications to be monitored for potential changes with reflux symptoms. Cognitive process did present with dementia behavior as pt had difficulty with thought organization and naming in conversational turns. HEMMER CHAINSTITCH recommends PCP to monitor for changes with dementia and or swallowing difficulty at follow-up appointments; refer to speech therapy OP as needed. At this time, pt will not be evaluated for cognition or dysphagia unless MD requests speech therapy order. Thank you for this consult.
[2021-05-04] MEDS: SODIUM CHLORIDE 0.9%-KCL 40MEQ 1,000 ML IV SCH (13:51)
[2021-05-04] MEDS: LIPITOR PO SCH (17:32)
[2021-05-04] MEDS: WELLBUTRIN XL PO SCH (20:43)
[2021-05-04] MEDS: CYMBALTA PO SCH (20:43)
[2021-05-04] MEDS: ELAVIL PO SCH (20:43)
[2021-05-05] MEDS: SODIUM CHLORIDE 0.9%-KCL 40MEQ 1,000 ML IV SCH (02:27)
[2021-05-05 05:36] LABS: BASOPHILS % (AUTO) 0.3 % (0.0-3.0); EOSINOPHILS # (AUTO) 0.1 K/ul (0.0-0.7); EOSINOPHILS % (AUTO) 1.4 % (0.0-7.0); HEMATOCRIT 33.5 % (37.0-47.0); HEMOGLOBIN 11.4 g/dl (12.0-16.0); IMMATURE GRANULOCYTE % (AUTO) 0.3 % (0.0-5.0); LYMPHOCYTES # (AUTO) 2.2 K/uL (0.60-3.4); LYMPHOCYTES % (AUTO) 33.9 (10.0-50.0); MEAN CORPUSCULAR HEMOGLOBIN 30.6 pg (27.0-31.0); MEAN CORPUSCULAR VOLUME 89.8 fl (81.0-99.0); MONOCYTES # (AUTO) 0.5 K/uL (0.4-2.0); NEUTROPHILS # (AUTO) 3.7 K/ul (2.0-6.9); NEUTROPHILS % (AUTO) 56.1 % (42.2-75.2); PLATELET COUNT 177 10^3/uL (140-440); RDW COEFFICIENT OF VARIATION 13.2 % (11.6-14.8); RED BLOOD COUNT 3.73 10^6/ul (4.20-5.40); WHITE BLOOD COUNT 6.52 K/ul (4.6-10.2)
[2021-05-05 06:02] LABS: ALBUMIN 3.49 g/dL (3.5-5.0); ALKALINE PHOSPHATASE 49.6 U/L (53-141); ASPARTATE AMINO TRANSFERASE 25.2 U/L (14-36); BILIRUBIN,TOTAL 0.63 mg/dL (0.2-1.3); BLOOD UREA NITROGEN 6.4 mg/dL (7-17); CALCIUM 8.79 mg/dL (8.4-10.2); CARBON DIOXIDE 23.2 mmol/L (22-30.0); CHLORIDE 108.7 mmol/L (98-107); CREATININE 0.58 mg/dL (0.60-1.30); GLUCOSE 93.1 mg/dL (74-106); POTASSIUM 5.72 mmol/L (3.5-5.1); SODIUM 135.7 mmol/L (134.5-145); TOTAL PROTEIN 6.21 g/dL (6.3-8.2)
[2021-05-05] MEDS: PROTONIX IV IVP SCH (06:05)
--- NOTE | 2021-05-05 09:24 | ECHO2D ---
Date of Exam: 05/04/2021 Ordering Physician: DR. RACHEL BARRON Room #: [id number] Reason for Echo: WEAKNESS, SOB M-Mode Normal Adult Results LV Dimensions Normal Adult Results AoV Opening excursions >1.6 >1.6 LVEDD-base- 3.5-5.8 4.1 Ao root dimensions 2.0-3.7 3.2 LVESD-base- 3.1-4.6 L. Atrium dimensions 1.9-3.8 3.9 Post. Wall thickness 0.8-1.1 1.2 IV septum (thickness) 0.7-1.2 1.3 Post. Wall excursion 0.72-1.3 NORMAL Septal motion NORMAL Systolic motion R. Ventricular cavity 1.5-2.0 NORMAL LVEF 60% 64% Paradoxical septal wall motion NORMAL 2-D : 2-D M Mode Echocardiogram was performed using apical four chamber and left parasternal long and short axis views. Mitral, tricuspid and aortic valves appear to be normal. Contractility of the left ventricle seems to be normal, so is the cavity size. Left atrial cavity size and aortic root appear to be normal. There is no pericardial effusion. There is no thrombus noted in the left ventricle or left atrial cavity. M-MODE: MV: NORMAL AV: NORMAL TV: NORMAL PV: CHAMBER SIZE: NORMAL WALL MOTION: NORMAL PERICARDIUM: NORMAL INTERPRETATION: 1. LEFT VENTRICLE HYPERTROPHY 2. NORMAL VALVES 3. NORMAL LEFT VENTRICLE CONTRACTILITY MTDD
--- NOTE | 2021-05-05 09:46 | PCM.PROG ---
Attending Provider: ATTENDING PROVIDER: Dr. RACHEL BARRON This patient is seen with Katy Shankar, Nurse Practitioner. DATE OF SERVICE: 05/05/21 SUBJECTIVE: This 70 year old /WHITE F was hospitalized 05/02/21. The patient states she is feeling better. Denies any nausea and has been eating. Discontinue IV fluids with Potassium. Potassium is elevated. Denies any abdominal pain. REVIEW OF SYSTEMS: CONSTITUTIONAL: No night sweats. No fatigue, malaise, lethargy. No fever or chills. Weakness. HEENT: Eyes: No visual changes. No eye pain. No eye discharge. ENT: No runny nose. No epistaxis. No sinus pain. No odynophagia. No congestion. RESPIRATORY: No cough, no congestion. No hemoptysis. No shortness of breath. CARDIOVASCULAR: No angina symptoms. No CHF symptoms. No atypical chest pain for CAD. No palpitations. No orthopnea.. GASTROINTESTINAL: No abdominal pain. No nausea or vomiting. No diarrhea or constipation. No hematemesis. No hematochezia. GENITOURINARY: No urgency. No frequency. No dysuria. No hematuria. No obstructive symptoms. No discharge. No pain. No significant abnormal bleeding. MUSCULOSKELETAL: No musculoskeletal pain; no joint swelling. NEUROLOGICAL: Awake, alert, oriented to time, place and person. No headache. No neck pain. No syncope. No seizures. No dizziness. PSYCHIATRIC: Not anxious. No depression. No suicidal thoughts. No homicidal thoughts. SKIN: No rash. No lesions. No wounds. ENDOCRINE: No unexplained weight loss. No weight gain. HEMATOLOGIC/LYMPHATIC: No anemia. No purpura. No petechiae. No prolonged or excessive bleeding. No palpable lymph nodes. PHYSICAL EXAMINATION: GENERAL: The patient is awake, alert and oriented, lying in bed in no distress. VITAL SIGNS: Temperature 98.9 F, Pulse 70, Respiratory Rate 18, BP 115/56, Pulse Ox 99% HEENT: Head normocephalic, atraumatic. Eyes: Extraocular muscles are intact. Pupils are equal, round and reactive to light and accommodation. Ears: No lesions. Nose appeared normal. Throat: No exudate or erythema. NECK: Supple. No JVD, no carotid bruit. No lymphadenopathy or thyromegaly. LUNGS: Diminished breath sounds. Clear to auscultation. Percussion note normal. Chest symmetrical. HEART: S1, S2, no S3. No murmurs. No cyanosis or clubbing. No ascites. Pulses: Dorsalis pedis and posterior tibial pulses +1 to +2 both sides. ABDOMEN: Soft. Non-tender. Bowel sounds active. No CVA tenderness. No mass felt. EXTREMITIES: No edema. Full range of motion of all extremities, equal. NEUROLOGIC: No focal deficit. Cranial nerves II through XII are grossly intact. No headache. No double vision. SKIN: Not dry. Intact. Turgor-normal. LYMPHATIC: No palpable lymph nodes/no lymphedema. MUSCULOSKELETAL: Normal joints with no swelling. Muscle tone is normal. LAB REVIEW: 05/05/21 05:06 05/05/21 05:06 05/05/21 05:06: Sodium 135.7, Potassium 5.72 H, Chloride 108.7 H, Carbon Dioxide 23.2, Anion Gap 9.52, BUN 6.4 L, Creatinine 0.58 L, Estimated GFR (MDRD) 103.00, BUN/Creatinine Ratio 11.03, Glucose 93.1, Calcium 8.79, Total Bilirubin 0.63, AST 25.2, ALT 13.0, Alkaline Phosphatase 49.6 L, Total Protein 6.21 L, Albumin 3.49 L, Globulin 2.72, Albumin/Globulin Ratio 1.28 05/05/21 05:06: WBC 6.52, RBC 3.73 L, Hgb 11.4 L, Hct 33.5 L, MCV 89.8, MCH 30.6, MCHC 34.0, RDW Coeff of Jaclyn 13.2, Plt Count 177, Immature Gran % (Auto) 0.3, Neut % (Auto) 56.1, Lymph % (Auto) 33.9, [place] % (Auto) 8.0, Eos % (Auto) 1.4, Baso % (Auto) 0.3, Neut # (Auto) 3.7, Lymph # (Auto) 2.2, [place] # (Auto) 0.5, Eos # (Auto) 0.1, Baso # (Auto) 0.0, Immature Gran # (Auto) 0.0 05/02/21 10:20: Adenovirus (PCR) Not detected, B. pertussis DNA (PCR) Not detected, B.parapertussis DNA PCR Not detected, C. pneumoniae DNA (PCR) Not detected, Coronavirus OC43 (PCR) Not detected, Coronavirus HKU1 (PCR) Not detected, Coronavirus 229E (PCR) Not detected, Coronavirus NL63 (PCR) Not detected, Human Metapneumovir PCR Not detected, Influenza Type A (PCR) Not detected, Influenza B (RT-PCR) Not detected, M. pneumoniae (PCR) Not detected, Parainfluenza 1 (PCR) Not detected, Parainfluenza 2 (PCR) Not detected, Parainfluenza 3 (PCR) Not detected, Parainfluenza 4 (PCR) Not detected, RSV (PCR) Not detected, Entero/Rhino (PCR) Not detected, SARS-CoV-2 (PCR) Not detected ASSESSMENT: Please see below. 1. Hypokalemia, resolved 2. UTI e-coli 3. Weight loss PLAN: 1. Discontinue IV fluids 2. Hold Potassium today 3. T4 TSH 4. Discontinue Wellbutrin 5. Switch Cymbalta to AM 6. Anticipate possible discharge tomorrow. Plan and coordination of the patient's care discussed in the presence of Dental Lab Technician and nurse. SCRIBED BY: Mariah CASH scribed while in presence of service performed by Dr. Barron/Katy Shankar APRN on 05/05/21 ([id number])
[2021-05-05] MEDS: FERROUS SULFATE PO SCH ×2 (09:56→20:19)
[2021-05-05] MEDS: VITAMIN D PO SCH (09:56)
[2021-05-05] MEDS: PLAQUENIL PO SCH ×2 (09:56→16:40)
[2021-05-05] MEDS: ROCEPHIN 1 GM/50 ML D5W 1 GM/50 ML BAG IV SCH (09:56)
[2021-05-05] MEDS: CALCIUM 500 + VIT D 5 MCG (200 IU) TABLET PO SCH (09:56)
[2021-05-05] MEDS: OMEGA-3 FISH OIL PO SCH ×3 (09:56→20:19)
[2021-05-05] MEDS: CYMBALTA PO SCH (09:56)
[2021-05-05] MEDS: NON-FORMULARY MEDICATION (Vitamin B12-Folic Acid 0.5-1 mg Tablet) PO SCH (10:00)
[2021-05-05] MEDS: PROTONIX PO SCH (16:40)
[2021-05-05] MEDS: LIPITOR PO SCH (16:41)
[2021-05-05] MEDS: ELAVIL PO SCH (20:19)
[2021-05-06 05:46] LABS: BASOPHILS % (AUTO) 0.4 % (0.0-3.0); EOSINOPHILS # (AUTO) 0.1 K/ul (0.0-0.7); EOSINOPHILS % (AUTO) 1.1 % (0.0-7.0); HEMATOCRIT 34.6 % (37.0-47.0); IMMATURE GRANULOCYTE % (AUTO) 0.4 % (0.0-5.0); LYMPHOCYTES # (AUTO) 2.2 K/uL (0.60-3.4); LYMPHOCYTES % (AUTO) 27.9 (10.0-50.0); MEAN CORPUSCULAR HEMOGLOBIN 31.5 pg (27.0-31.0); MEAN CORPUSCULAR HGB CONC 34.7 (31.8-35.4); MEAN CORPUSCULAR VOLUME 90.8 fl (81.0-99.0); MONOCYTES # (AUTO) 0.7 K/uL (0.4-2.0); MONOCYTES % (AUTO) 8.8 (0-10); NEUTROPHILS # (AUTO) 4.9 K/ul (2.0-6.9); NEUTROPHILS % (AUTO) 61.4 % (42.2-75.2); PLATELET COUNT 160 10^3/uL (140-440); RDW COEFFICIENT OF VARIATION 13.2 % (11.6-14.8); RED BLOOD COUNT 3.81 10^6/ul (4.20-5.40); WHITE BLOOD COUNT 7.96 K/ul (4.6-10.2)
[2021-05-06] MEDS: PROTONIX PO SCH (05:52)
[2021-05-06 05:56] VITALS: BP 112/63; TEMP 97.7
[2021-05-06 06:00] LABS: ALANINE AMINOTRANSFERASE 11.1 U/L (0-35); ALBUMIN 3.7 g/dL (3.5-5.0); ALKALINE PHOSPHATASE 52.6 U/L (53-141); ASPARTATE AMINO TRANSFERASE 23.9 U/L (14-36); BILIRUBIN,TOTAL 0.54 mg/dL (0.2-1.3); CALCIUM 9.37 mg/dL (8.4-10.2); CHLORIDE 103.6 mmol/L (98-107); CREATININE 0.64 mg/dL (0.60-1.30); GLUCOSE 98.7 mg/dL (74-106); POTASSIUM 4.53 mmol/L (3.5-5.1); SODIUM 133.5 mmol/L (134.5-145); TOTAL PROTEIN 6.5 g/dL (6.3-8.2)
[2021-05-06] MEDS ORDERED: OMNICEF PO SCH (09:00)
[2021-05-06] MEDS: VITAMIN D PO SCH (09:04)
[2021-05-06] MEDS: FERROUS SULFATE PO SCH (09:04)
[2021-05-06] MEDS: OMEGA-3 FISH OIL PO SCH (09:04)
[2021-05-06] MEDS: CYMBALTA PO SCH (09:05)
[2021-05-06] MEDS: NON-FORMULARY MEDICATION (Vitamin B12-Folic Acid 0.5-1 mg Tablet) PO SCH (09:05)
[2021-05-06] MEDS: CALCIUM 500 + VIT D 5 MCG (200 IU) TABLET PO SCH (09:05)
[2021-05-06] MEDS: PLAQUENIL PO SCH (09:12)
--- NOTE | 2021-05-06 10:47 | PCM.PROG ---
Attending Provider: ATTENDING PROVIDER: Dr. RACHEL BARRON DATE OF SERVICE: 05/06/21 SUBJECTIVE: This 70 year old /WHITE F was hospitalized 05/02/21 with weight loss, dehydration and severe hypokalemia. She was seen in the office and then was bounced around from [place] [facility] to [facility]. The patient was hospitalized for further treatment. The patient's potassium was 2.3 on admission and is now 4.5. She is eating better. No nausea. No vomiting. Incidental findings of cholelithiasis which the patient doesn't seem to be symptomatic. REVIEW OF SYSTEMS: CONSTITUTIONAL: No night sweats. No fatigue, malaise, lethargy. No fever or chills. HEENT: Eyes: No visual changes. No eye pain. No eye discharge. ENT: No runny nose. No epistaxis. No sinus pain. No odynophagia. No congestion. RESPIRATORY: No cough, no congestion. No hemoptysis. No shortness of breath. CARDIOVASCULAR: No angina symptoms. No CHF symptoms. No atypical chest pain for CAD. No palpitations. No orthopnea.. GASTROINTESTINAL: No abdominal pain. No nausea or vomiting. No diarrhea or constipation. No hematemesis. No hematochezia. GENITOURINARY: No urgency. No frequency. No dysuria. No hematuria. No obs tructive symptoms. No discharge. No pain. No significant abnormal bleeding. MUSCULOSKELETAL: No musculoskeletal pain; no joint swelling. NEUROLOGICAL: Awake, alert, oriented to time, place and person. No headache. No neck pain. No syncope. No seizures. No dizziness. PSYCHIATRIC: Not anxious. No depression. No suicidal thoughts. No homicidal thoughts. SKIN: No rash. No lesions. No wounds. ENDOCRINE: No unexplained weight loss. No weight gain. HEMATOLOGIC/LYMPHATIC: No anemia. No purpura. No petechiae. No prolonged or excessive bleeding. No palpable lymph nodes. PHYSICAL EXAMINATION: GENERAL: The patient is awake, alert and oriented, lying in bed in no distress. VITAL SIGNS: Temperature 97.7 F, Pulse 81, Respiratory Rate 16, BP 112/63, Pulse Ox 93% HEENT: Head normocephalic, atraumatic. Eyes: Extraocular muscles are intact. Pupils are equal, round and reactive to light and accommodation. Ears: No lesions. Nose appeared normal. Throat: No exudate or erythema. NECK: Supple. No JVD, no carotid bruit. No lymphadenopathy or thyromegaly. LUNGS: Clear to auscultation. Percussion note normal. Chest symmetrical. HEART: S1, S2, no S3. No murmurs. No cyanosis or clubbing. No ascites. Pulses: Dorsalis pedis and posterior tibial pulses +1 to +2 both sides. ABDOMEN: Soft. Non-tender. Bowel sounds active. No CVA tenderness. No mass felt. EXTREMITIES: No edema. Full range of motion of all extremities, equal. NEUROLOGIC: No focal deficit. Cranial nerves II through XII are grossly intact. No headache, no double vision or headache. SKIN: Warm and dry. Intact. Turgor-normal. LYMPHATIC: No palpable lymph nodes/no lymphedema. MUSCULOSKELETAL: Normal joints with no swelling. Muscle tone is normal. LAB REVIEW: 05/06/21 05:14 05/06/21 05:14 05/06/21 05:14: Sodium 133.5 L, Potassium 4.53, Chloride 103.6, Carbon Dioxide 21.0 L, Anion Gap 13.43, BUN 12.0, Creatinine 0.64, Estimated GFR (MDRD) 92.00, BUN/Creatinine Ratio 18.75, Glucose 98.7, Calcium 9.37, Total Bilirubin 0.54, AST 23.9, ALT 11.1, Alkaline Phosphatase 52.6 L, Total Protein 6.50, Albumin 3.70, Globulin 2.80, Albumin/Globulin Ratio 1.32 05/06/21 05:14: WBC 7.96, RBC 3.81 L, Hgb 12.0, Hct 34.6 L, MCV 90.8, MCH 31.5 H , MCHC 34.7, RDW Coeff of Jaclyn 13.2, Plt Count 160, Immature Gran % (Auto) 0.4, Neut % (Auto) 61.4, Lymph % (Auto) 27.9, [place] % (Auto) 8.8, Eos % (Auto) 1.1, Baso % (Auto) 0.4, Neut # (Auto) 4.9, Lymph # (Auto) 2.2, [place] # (Auto) 0.7, Eos # (Auto) 0.1, Baso # (Auto) 0.0, Immature Gran # (Auto) 0.0 05/05/21 05:06: TSH 0.045 L 05/05/21 05:06: Free T4 1.58 ASSESSMENT: Please see below. 1. Dehydration, resolved 2. Hypokalemia, resolved 3. The patient is on Omnicef for E-coli UTI PLAN: 1. Discharge home on Protonix 2. Wellbutrin has been taken off 3. Celebrex was discontinued. 4. The patient sees diesel dinkey operator in [place] but hasn't seen for the past years. He prescribes Celebrex. Strongly advised the patient to make an appointment and to continue to followup with him. Advised to take Tylenol two ta blets twice a day 5. Potassium 20meq daily 6. Advised to eat regularly. cooks for her and practically takes care of her. 7. Echo Showed LV contractility and normal LV size. Cardiovascular status is stable 8. The patient is going to have musical string maker services to help her with household work. No understanding of medical problems and doesn't know medications. In retrospect makes her difficult to deal with. Plan and coordination of the patient's care discussed in the presence of Case El amaya and nurse. SCRIBED BY: BRAYDEN FAIRCHILD Senior Materials Planner scribed while in presence of service performed by Dr. RACHEL BARRON on 05/06/21 ([id number])
--- NOTE | 2021-05-06 11:42 | PN ---
DATE OF SERVICE: 05/05/21 SUBJECTIVE: The patient was seen and examined with the Nurse Practitioner. The patient's condition has improved. She is feeling better. Potassium is high because of Potassium supplements that were given. She was admitted with Hypokalemia. The patient's appetite has improved. No abdominal pain. Could be that she was symptomatic from gallbladder findings. Still didn't find any reason she was losing weight for now. May need a referral for curer acid drum/oncologist or Leave Specialist for further work up in a way for colonoscopy or EGD. The patient is otherwise stable. The patient is noncompliant likely discharge date tomorrow. TIME SPENT: More than 30 minutes. Plan and coordination of the patient's care discussed in the presence of nurse. JULIANN
--- NOTE | 2021-05-06 14:23 | PN ---
DATE OF SERVICE: 05/04/21 SUBJECTIVE: 70 year old white female hospitalized with weight loss, hypokalemia. The patient's condition has improved. Her hydration status has improved. Her skin turgor is a lot better. REVIEW OF SYSTEMS: CONSTITUTIONAL: No night sweats. No fatigue, malaise, lethargy. No fever or chills. HEENT: Eyes: No visual changes. No eye pain. No eye discharge. ENT: No runny nose. No epistaxis. No sinus pain. No sore throat. No odynophagia. No congestion. RESPIRATORY: No cough, no congestion. No hemoptysis. No shortness of breath. CARDIOVASCULAR: No angina symptoms. No CHF symptoms. No atypical chest pain for CAD. No palpitations. No PND. No orthopnea. GASTROINTESTINAL: No abdominal pain. No nausea or vomiting. No diarrhea or constipation. No hematemesis. No hematochezia. Appetite has improved remarkably. GENITOURINARY: No urgency. No frequency. No dysuria. No hematuria. No obstructive symptoms. No discharge. No pain. No significant abnormal bleeding. MUSCULOSKELETAL: No musculoskeletal pain; no joint swelling. NEUROLOGICAL: No headache. No neck pain. No syncope. No seizures. No dizziness. PSYCHIATRIC: Not anxious. No depression. No suicidal thoughts. No homicidal thoughts. SKIN: No rash. No lesions. No wounds. ENDOCRINE: No unexplained weight loss. No weight gain. HEMATOLOGIC/LYMPHATIC: No anemia. No purpura. No petechiae. No prolonged or excessive bleeding. No palpable lymph nodes. PHYSICAL EXAMINATION: VITAL SIGNS: pulse 65, respiratory rate 15, blood pressure 130/70 and oxygen saturation 94% on room air. HEENT: Head normocephalic, atraumatic. Eyes: Extraocular muscles are intact. Pupils are equal, round and reactive to light and accommodation. Ears: No lesions. Nose appeared normal. Throat: No exudate or erythema. NECK: Supple. No JVD, no carotid bruit. No lymphadenopathy or thyromegaly. LUNGS: Decreased breath sounds but clear to auscultation. Percussion note normal. Chest symmetrical. HEART: S1, S2, no S3. No murmurs. No cyanosis or clubbing. No ascites. Pulses: Dorsalis pedis and posterior tibial pulses +1 to +2 bilaterally. ABDOMEN: Soft. Nontender. Bowel sounds active. No CVA tenderness. No mass felt. EXTREMITIES: No edema. Full range of motion of all extremities, equal. NEUROLOGIC: No focal deficit. Cranial nerves II through XII are grossly intact. No headache. No double vision. SKIN: Not dry. Intact. Turgor - normal. LYMPHATIC: No palpable lymph nodes/no lymphedema. MUSCULOSKELETAL: Normal joints with no swelling. Muscle tone is normal. ASSESSMENT: 1. Weight loss etiology unknown could be chronic GERD disease could have done it. The patient declined colonoscopy or upper GI endoscopy or referral to specialist for weight loss. 2. Potassium is improving 3. Dehydration status has resolved. TIME SPENT: More than 30 minutes. Plan and coordination of the patient's care discussed in the presence of nurse. JULIANN
--- NOTE | 2021-05-09 14:28 | DS ---
DATE OF SERVICE: 05/06/21 FINAL DIAGNOSIS: 1. UTI, e-coli, ESBL 2. Weight loss likely from gastritis etiology unknown. 3. Hypokalemia 4. Cholelithiasis seems to be asymptomati 5. Hypolipidemia 6. Coronary artery disease with stent 7. Chronic anemia 8. Generalized osteoarthritis possibility of rheumatoid arthritis followed by Dr. Haynes 9. Hypothyroidism 10.Neuropathy DISCHARGE INSTRUCTIONS: Discharge home. The patient is non-compliant of her followup. Also noncompliant of any followup with Test Hole Driller Dr. Haynes. Strongly advised to followup with him. Strongly advised to discontinue all the nonsteroidal inflammatory. Instruction to come back in 5-7 days to be seen on followup to my office. MEDICATIONS AT DISCHARGE: Aspirin 81mg Atorvastatin 10mg PO daily Hydroxychloroquine Nitroglycerine Amitriptyline Protonix 40mg twice Omnicef 300mg twice a day for 5 days for e-coli urinary tract infection Ferrous sulfate Tramadol Levothyroxine 25mcg PO daily to be continued K-tab 20meq daily DISCONTINUED MEDICATIONS: Wellbutrin Celebrex DIET INSTRUCTIONS: As tolerated ACTIVITY: As tolerated HOSPITAL COURSE: 70 year old white female was seen in the office and later one sent to [place] for blood test and from there the patient was sent to [facility] where she was given Potassium supplements and sent home. Health problem continued on 05/02/21 and she was hospitalized. Potassium was still 2.3. She was given Potassium supplements at the time of discharge the patient's Potassium was 4.5. Status improved. Weight loss 15-20 pounds noted, still doesn't have any answer but could be from Celebrex induced gastritis and or cholelithiasis which maybe symptomatic. The patient is very poor historian. The patient has declined to be referred to ophthalmic surgical assistant for the Cholelithiasis. Strongly advised to have colonoscopy and EGD done. She is going to consider that. She is going to be seen in the office on followup. The e-coli with ESBL is being treated with Omnicef. This is to be continued twice a day until she is instructed not to. Potassium supplements will be given. Condition at the time of discharge stable. The patient had echocardiogram done which showed normal LV contractility, normal valves and enlarged LA cavity. TIME SPENT: More than 60 minutes. [facility]
--- NOTE | 2021-05-09 14:29 | PN ---
05/02/21: level 5 05/03/21: Intermediate 05/04/21: Intermediate 05/05/21: Intermediate 05/06/21: D as in discharge MTDD
== END 2021-05-06 12:11 | disposition home or self-care (01) | DRG 392 ==
LOC: LAB 10:03 → MEDSURG A 11:43
PROVIDERS: ADMIT Internal Medicine; ATTEND Internal Medicine
DX: K80.20 Calculus of gallbladder without cholecystitis without obstruction; R63.4 Abnormal weight loss; D63.8 Anemia in other chronic diseases classified elsewhere; F32.A Depression, unspecified; G62.9 Polyneuropathy, unspecified; Z79.899 Other long term (current) drug therapy; Z20.822 Contact with and (suspected) exposure to COVID-19; E86.0 Dehydration; B96.20 Unspecified Escherichia coli [E. coli] as the cause of diseases classified elsewhere; M19.90 Unspecified osteoarthritis, unspecified site; M34.9 Systemic sclerosis, unspecified; N39.0 Urinary tract infection, site not specified; M79.7 Fibromyalgia; I25.10 Atherosclerotic heart disease of native coronary artery without angina pectoris; M06.9 Rheumatoid arthritis, unspecified; M35.1 Other overlap syndromes; H81.90 Unspecified disorder of vestibular function, unspecified ear; Z68.27 Body mass index [BMI] 27.0-27.9, adult; I51.7 Cardiomegaly; Z95.5 Presence of coronary angioplasty implant and graft; R53.83 Other fatigue; Z51.81 Encounter for therapeutic drug level monitoring; R11.2 Nausea with vomiting, unspecified; E03.9 Hypothyroidism, unspecified; R53.1 Weakness; K21.9 Gastro-esophageal reflux disease without esophagitis; D51.9 Vitamin B12 deficiency anemia, unspecified; E66.9 Obesity, unspecified